=== PATIENT | female | born 1995 | race Caucasian/White ===

== ENCOUNTER 2017-04-14 18:59 | Emergency (ER) | payer OTHER ==
--- NOTE | 2017-04-14 19:13 | EDPHY ---
H & P Stated Complaint: r shoulder/throat and neck pain/steeple sign on throat films/ sent to r/o ep HPI/ROS: HPI CHIEF COMPLAINT: Sore throat HISTORY OF PRESENT ILLNESS: This patient is a very pleasant 22-year-old female denies having any significant medical history except for rotator cuff injury, she presents emergency room after she was seen by her orthopedist for ongoing shoulder pain and worsening rotator cuff pain she has had 2 days of sore throat progressively getting worse no fever. She does tell me that she has a change in voice it is more raspy. She denies productive cough or shortness of breath. Her main complaint is worsening sore throat. She had an x-ray done by her orthopedic doctor of her shoulder and neck the neck x-ray reported by the patient showed steeple sign she was referred here to the emergency room for evaluation to rule out epiglottitis. Upon arrival here in emergency room this patient appears well nontoxic her main complaint is sore throat. 2 days. She is not drooling. She is able to drink. She also states that she has been using heating pad to help with pain to her right shoulder she may have burned the mandibular edge of her right jaw from the heating pad. She does have some localized swelling there present. Denies dental pain. Past Medical History: Rotator cuff injury , anxiety, attention deficit hyperactivity disorder Past Surgical History: Denies surgical history Social History: Denies use of drugs alcohol tobacco products Family History: Noncontributory ROS REVIEW OF SYSTEMS: A comprehensive 10 point review of systems is otherwise negative aside from elements mentioned in the history of present illness. Exam Constitutional appears well nontoxic, triage nursing summary reviewed, vital signs reviewed, awake/alert. Eyes normal conjunctivae and sclera, EOMI, PERRLA. HENT posterior pharynx uvula midline, no significant swelling, no significant redness, no signs of Jv's, no space feeling underneath the tongue, no obvious dental infection, right jaw line slightly swollen, there appears to be maybe a second-degree partial-thickness burn where heating pad laid up against the jaw line, no blisters, no third-degree, normal inspection, atraumatic, moist mucus membranes, no epistaxis, neck supple/ no meningismus, no raccoon eyes. Respiratory clear to auscultation bilaterally, normal breath sounds, no respiratory distress, no wheezing. Cardiovascular rate normal, regular rhythm, no murmur, no edema, distal pulses normal. Gastrointestinal soft, non-tender, no rebound, no guarding, normal bowel sounds, no distension, no pulsatile mass. Genitourinary no CVA tenderness. Musculoskeletal no midline vertebral tenderness, full range of motion, no calf swelling, no tenderness of extremities, no meningismus, good pulses, neurovascularly intact. Skin pink, warm, & dry, no rash, skin atraumatic. Neurologic awake, alert and oriented x 3, AAOx3, moves all 4 extremities equally, motor intact, sensory intact, CN II-XII intact, normal cerebellar, normal vision, normal speech. Psychiatric normal mood/affect. Heme/Lymph/Immune no lymphadenopathy. Differential Diagnosis: Includes but is not limited to in a particular order strep pharyngitis, viral pharyngitis, mono, retropharyngeal abscess, doubt epiglottitis Medical Decision Making: Plan for this patient IV establishment, IV pain control, check basic blood work and CT soft tissue neck with IV contrast. Check strep test mono. Re-evaluation: 2056: Of note this patient was very difficult IV establishment. She has track pinedo down both arms extensively. Denies IV drug use. Multiple times roommate getting IV finally IV was established. Will proceed with CT soft tissue neck with IV contrast. Mostly clinically has a pharyngitis. ED x-ray chest one view: Negative for acute cardiopulmonary disease. Specifically no infiltrate. I do not appreciate steeple sign. CT scan of the soft tissue neck with IV contrast. The results of the study are Negative for Epiglottits or RPA The study was read by Dr. Koehler. I viewed the images myself on the PACS system. 2136: Patient be placed on amoxicillin, Decadron ibuprofen. CT scan does not show any acute significant neck infection. Slightly enlarged tonsillar bed. No abscess or epiglottitis. 1st dose given here in emergency room. She does understand return emergency room if she has any worsening symptoms questions or concerns includes worsening pain, high fever vomiting. Source: Patient - Personal History LMP (Females 10-55): 8-14 Days Ago Current Tetanus/Diphtheria Vaccine: Yes - Medical/Surgical History Hx Asthma: No Hx Chronic Respiratory Disease: No Hx Diabetes: No Hx Cardiac Disease: No Hx Renal Disease: No Hx Cirrhosis: No Hx Alcoholism: No Hx HIV/AIDS: No Hx Splenectomy or Spleen Trauma: No Other PMH: Medical- Concussion 12/14/13. Surgical- Tonsillectomy - Social History Smoking Status: Never smoked Constitutional: Initial Vital Signs Temperature (C) 36.6 C 04/14/17 19:03 Heart Rate 99 04/14/17 19:03 Respiratory Rate 22 H 04/14/17 19:03 Blood Pressure 116/73 04/14/17 19:03 O2 Sat (%) 97 04/14/17 19:03 O2 Delivery Mode Room Air Allergies/Adverse Reactions: No Known Allergies Allergy (Verified 04/14/17 19:00) Home Medications: Medication Instructions Recorded Adderall 11/24/16 Ambien 11/24/16 Xanax 11/24/16 Amoxicillin 500 mg PO TID 7 Days 04/14/17 Dexamethasone [Decadron 4 MG (*)] 4 mg PO DAILY #4 tab 04/14/17 Ibuprofen [Motrin (*)] 800 mg PO Q6-8PRN #10 tab 04/14/17 Medical Decision Making - Data Points Laboratory Results: Laboratory Results 04/14/17 20:50 04/14/17 20:14 04/14/17 04/14/17 04/14/17 Unknown 20:50 20:30 WBC REJ REJ RBC REJ Not Reported Hgb REJ Not Reported Hct REJ Not Reported MCV REJ Not Reported MCH REJ Not Reported MCHC REJ Not Reported RDW REJ Not Reported Plt Count REJ Not Reported MPV REJ Not Reported Neut % (Auto) REJ Not Reported Lymph % (Auto) REJ Not Reported [place] % (Auto) REJ Not Reported Eos % (Auto) REJ Not Reported Baso % (Auto) REJ Not Reported Nucleat RBC Rel Count REJ Not Reported Absolute Neuts (auto) REJ Not Reported Absolute Lymphs (auto) REJ Not Reported Absolute Monos (auto) REJ Not Reported Absolute Eos (auto) REJ Not Reported Absolute Basos (auto) REJ Not Reported Absolute Nucleated RBC REJ Not Reported Immature Gran % REJ Not Reported Immature Gran # REJ Not Reported Sodium Potassium Chloride Carbon Dioxide Anion Gap BUN Creatinine Estimated GFR Glucose Calcium Monoscreen Group A Strep Screen Group A Strep DNA Pending 04/14/17 04/14/17 04/14/17 20:14 20:14 19:20 WBC RBC Hgb Hct MCV MCH MCHC RDW Plt Count MPV Neut % (Auto) Lymph % (Auto) [place] % (Auto) Eos % (Auto) Baso % (Auto) Nucleat RBC Rel Count Absolute Neuts (auto) Absolute Lymphs (auto) Absolute Monos (auto) Absolute Eos (auto) Absolute Basos (auto) Absolute Nucleated RBC Immature Gran % Immature Gran # Sodium 133 mEq/L L mEq/L (134-144) Potassium 4.1 mEq/L mEq/L (3.5-5.2) Chloride 98 mEq/L mEq/L (97-110) Carbon Dioxide 27 mEq/l mEq/l (22-31) Anion Gap 8 mEq/L mEq/L (8-16) BUN 14 mg/dL mg/dL (7-23) Creatinine 0.7 mg/dL mg/dL (0.6-1.0) Estimated GFR > 60 Glucose 91 mg/dL mg/dL (70-100) Calcium 8.9 mg/dL mg/dL (8.5-10.4) Monoscreen NEGATIVE (NEGATIVE) Group A Strep Screen NEGATIVE (NEGATIVE) Group A Strep DNA Medications Given: Discontinued Medications Sodium Chloride (Ns) 1,000 mls @ 0 mls/hr IV ONCE ONE PRN Reason: Wide Open Stop: 04/14/17 19:23 Last Admin: 04/14/17 21:04 Dose: 1,000 mls Morphine Sulfate (Morphine) 2 mg IVP EDNOW ONE Stop: 04/14/17 19:28 Last Admin: 04/14/17 21:00 Dose: 2 mg Departure - Departure Disposition: Home, Routine, Self-Care Clinical Impression: Acute pharyngitis Qualifiers: Pharyngitis/tonsillitis etiology: unspecified etiology Qualified Code(s): J02.9 - Acute pharyngitis, unspecified Condition: Good Instructions: Pharyngitis (ED) Additional Instructions: 1. Return emergency room if you have further symptoms or worsening symptoms includes worsening throat pain, fever vomiting. Referrals: Miguel Chavez MD [Primary Care Provider] - As per Instructions Prescriptions: Amoxicillin 500 mg PO TID 7 Days Dexamethasone [Decadron 4 MG (*)] 4 mg PO DAILY #4 tab Ibuprofen [Motrin (*)] 800 mg PO Q6-8PRN #10 tab
[2017-04-14] MEDS ORDERED: NS 1,000 ML IV ONE (19:22)
[2017-04-14 20:41] LABS: ANION GAP 8 mEq/L (8-16); CALCIUM 8.9 mg/dL (8.5-10.4); CARBON DIOXIDE 27 mEq/l (22-31); CHLORIDE 98 mEq/L (97-110); CREATININE 0.7 mg/dL (0.6-1.0); GLOMERULAR FILTRATION RATE > 60; GLUCOSE 91 mg/dL (70-100); POTASSIUM 4.1 mEq/L (3.5-5.2); SODIUM 133 mEq/L (134-144)
[2017-04-14] MEDS ORDERED: IOPAMIDOL (ISOVUE-300) 100 ML BTL ONE (20:50)
[2017-04-14 21:57] VITALS: BP 112/82; PULSE 89; RESP 20; TEMP 98.1; O2SAT 94
== END 2017-04-14 21:57 | disposition home or self-care (01) ==
DX: J02.9 Acute pharyngitis, unspecified (principal)
CPT/HCPCS: 96374; Q9967

== ENCOUNTER 2017-06-05 17:26 | Observation (INO) | payer OTHER ==
[2017-06-05] MEDS ORDERED: fentaNYL 100 MCG/2 ML INJ IVP ONE (17:48)
[2017-06-05] MEDS ORDERED: ONDANSETRON 4 MG/2 ML VIAL IVP ONE (17:48)
--- NOTE | 2017-06-05 18:02 | EDPHY ---
H & P Smoking Status: Never smoked Time Seen by Provider: 06/05/17 17:37 HPI/ROS: CHIEF COMPLAINT: Abdominal pain HISTORY OF PRESENT ILLNESS: 22-year-old female presents to the emergency department with epigastric abdominal pain that began around 8:00 a.m. this morning. She states that initially it felt as if she was having some symptoms of GERD. She tried Pepto-Bismol without relief. No vomiting. No diarrhea. She has a history of a ventral hernia that she has had since . She has never had pain like this in the past. No reported trauma. No back pain. No fevers or chills. Last menstrual period was 1 month ago, she denies . REVIEW OF SYSTEMS: Constitutional: No fever, no chills. Eyes: No double or blurry vision. ENT: No sore throat. Respiratory: No cough, no shortness of breath. Cardiac: No chest pain. Gastrointestinal: Abdominal pain as above. No vomiting or diarrhea Genitourinary: No dysuria. Musculoskeletal: No neck or back pain. Skin: No rashes. Neurological: No headache. (Yvette Schuler) Past Medical/Surgical History: Tonsillectomy (Yvette Schuler) Social History: Single (Yvette Schuler) Physical Exam: General Appearance: Alert, no distress. Afebrile. Eyes: Pupils equal and round. Extraocular motions are all intact. ENT: Mouth: Mucous membranes moist. Respiratory: No wheezing, rhonchi, or rales, lungs are clear to auscultation. Cardiovascular: Regular rate and rhythm. Gastrointestinal: Abdomen is soft. Tenderness with palpation in the epigastric area as well as slightly in the right and left upper quadrant. There is no rebound, guarding or masses noted. No CVA tenderness bilaterally. Neurological: Alert and oriented x 3, cranial nerves II through XII grossly intact Skin: Warm and dry, no rashes. Musculoskeletal: Nontender to palpate along the cervical, thoracic or lumbar spine. Neck is supple. Extremities: Full range of motion and no peripheral edema. Psychiatric: Patient is oriented X 3, there is no agitation. (Yvette Schuler) Constitutional: Initial Vital Signs Temperature (C) 36.9 C 06/05/17 17:30 Heart Rate 78 06/05/17 17:30 Respiratory Rate 16 06/05/17 17:30 Blood Pressure 106/71 06/05/17 17:30 O2 Sat (%) 97 06/05/17 17:30 O2 Delivery Mode Room Air Allergies/Adverse Reactions: No Known Allergies Allergy (Verified 04/14/17 19:00) Home Medications: Medication Instructions Recorded Adderall 11/24/16 Ambien 11/24/16 Xanax 11/24/16 Amoxicillin 500 mg PO TID 7 Days 04/14/17 Dexamethasone [Decadron 4 MG (*)] 4 mg PO DAILY #4 tab 04/14/17 Ibuprofen [Motrin (*)] 800 mg PO Q6-8PRN #10 tab 04/14/17 Medical Decision Making - Diagnostics Imaging: Discussed imaging studies w/ bingo caller Radiologist - Diagnostics Imaging Results: Imaging Impressions Abdomen/Pelvis CT 06/05/17 19:41 Impression: 1. Epigastric 3 mm anterior abdominal wall hernia defect with approximately 2 cm of mesenteric fat extending through the hernia defect. No definite inflammatory changes. 2. Constipation. 3. No evidence of appendicitis. 4. No nephrolithiasis or urinary tract obstruction. Attention: This CT examination is specifically designed to evaluate patients who are clinically suspected of having acute obstructive uropathy. This examination does not use radiographic contrast, and as such, provides only a limited evaluation of the abdomen, pelvis, and retroperitoneum. If there is further clinical suspicion for pathological conditions other than obstructive uropathy, a complete CT evaluation of the abdomen and pelvis utilizing intravenous, oral, and rectal contrast should be considered. Findings and recommendations discussed with emergency department physician assistant store director, Yvette Schuler PA-C at 2024 hours on June 05, 2017. Final report concurs with initial preliminary interpretation. ED Course/Re-evaluation: 22-year-old female presents to the emergency department with epigastric abdominal pain. The patient does have a palpable hernia. I was concerned about possible incarcerated hernia given her level of pain. Laboratory studies were unremarkable. The case was discussed with Dr. Vadim Cortez, secondary supervising physician, who also evaluated the patient. He agrees with CT imaging of the abdomen and pelvis with IV contrast. CT imaging reveals a small ventral hernia superior to the umbilicus with a small amount of herniated fat. IV was established the patient was initially given IV fentanyl and 0.5 mg of IV Dilaudid for pain. Dr. Shahrzad Deleon came down to evaluate the patient and will take this patient to the operating room. A bed has been ordered to Dr. Shahrzad Deleon. She also recommended giving the patient 2 g of IV Ancef. (Yvette Schuler) Differential Diagnosis: Including but not limited to incarcerated hernia, bowel obstruction (Yvette Schuler) Other Provider: PHYSICIAN DOCUMENTATION: The patient was evaluated and managed by the Physician Laboratory Mechanic Helper and myself. I have reviewed the chart and agree with the findings and plan of care as documented. In addition, I examined the patient myself. History confirmed as was told she had a hernia by her mother, no previous surgeries. Physical findings as follows: Patient has swelling and tenderness which is firm, in the subcutaneous area below her epigastrium and above her umbilicus. Plan for CT scanning to evaluate for possible incarcerated hernia. Negative test, normal creatinine. 2049: CT reviewed, [place] to see in ED. I am the secondary supervising physician. (Vadim Cortez) - Data Points Laboratory Results: Laboratory Results 06/05/17 19:25 06/05/17 06/05/17 06/05/17 19:25 19:25 19:22 WBC 10.69 10^3/uL H 10^3/uL (3.80-9.50) RBC 3.89 10^6/uL L 10^6/uL (4.18-5.33) Hgb 11.5 g/dL L g/dL (12.6-16.3) POC Hgb 13.3 gm/dL gm/dL (12.6-16.3) Hct 35.7 % L % (38.0-47.0) POC Hct 39 % % (38-47) MCV 91.8 fL fL (81.5-99.8) MCH 29.6 pg pg (27.9-34.1) MCHC 32.2 g/dL L g/dL (32.4-36.7) RDW 13.3 % % (11.5-15.2) Plt Count 261 10^3/uL 10^3/uL (150-400) MPV 10.1 fL fL (8.7-11.7) Neut % (Auto) 72.5 % % (39.3-74.2) Lymph % (Auto) 18.2 % % (15.0-45.0) [place] % (Auto) 6.1 % % (4.5-13.0) Eos % (Auto) 2.4 % % (0.6-7.6) Baso % (Auto) 0.4 % % (0.3-1.7) Nucleat RBC Rel Count 0.0 % % (0.0-0.2) Absolute Neuts (auto) 7.75 10^3/uL H 10^3/uL (1.70-6.50) Absolute Lymphs (auto) 1.95 10^3/uL 10^3/uL (1.00-3.00) Absolute Monos (auto) 0.65 10^3/uL 10^3/uL (0.30-0.80) Absolute Eos (auto) 0.26 10^3/uL 10^3/uL (0.03-0.40) Absolute Basos (auto) 0.04 10^3/uL 10^3/uL (0.02-0.10) Absolute Nucleated RBC 0.00 10^3/uL 10^3/uL (0-0.01) Immature Gran % 0.4 % % (0.0-1.1) Immature Gran # 0.04 10^3/uL 10^3/uL (0.00-0.10) POC Sodium 140 mEq/L mEq/L (134-144) POC Potassium 4.0 mEq/L mEq/L (3.3-5.0) POC Chloride 100 mEq/L mEq/L (97-110) POC BUN 4 mg/dL L mg/dL (7-23) POC Creatinine 0.6 mg/dL mg/dL (0.6-1.0) POC Glucose 87 mg/dL mg/dL (70-100) Beta HCG, Qual NEGATIVE Medications Given: Discontinued Medications Fentanyl (Sublimaze) 50 mcg IVP EDNOW ONE Stop: 06/05/17 17:49 Last Admin: 06/05/17 18:54 Dose: 50 mcg Hydromorphone HCl (Dilaudid) 0.5 mg IVP EDNOW ONE Stop: 06/05/17 19:55 Last Admin: 06/05/17 20:01 Dose: 0.5 mg Hydromorphone HCl (Dilaudid) 0.5 mg IVP EDNOW ONE Stop: 06/05/17 21:01 Last Admin: 06/05/17 21:10 Dose: 0.5 mg Hydromorphone HCl (Dilaudid) 0.5 mg IVP EDNOW ONE Stop: 06/05/17 21:57 Last Admin: 06/05/17 22:02 Dose: 0.5 mg Sodium Chloride (Ns) 1,000 mls @ 0 mls/hr IV ONCE ONE PRN Reason: Wide Open Stop: 06/05/17 18:43 Last Admin: 06/05/17 18:53 Dose: 1,000 mls Ondansetron HCl (Zofran) 4 mg IVP EDNOW ONE Stop: 06/05/17 17:49 Last Admin: 06/05/17 18:53 Dose: 4 mg Point of Care Test Results: 06/05/17 19:22 POC Sodium 140 POC Potassium 4.0 POC Chloride 100 POC BUN 4 L POC Creatinine 0.6 POC Glucose 87 Departure - Departure Disposition: To OP Cath/Surgery Clinical Impression: Ventral hernia with incarcerated fat Condition: Good Referrals: Miguel Chavez MD [Primary Care Provider] - As per Instructions
[2017-06-05] MEDS ORDERED: NS 1,000 ML IV ONE (18:42)
[2017-06-05 19:40] LABS: % IMMATURE GRANULYOCYTES 0.4 % (0.0-1.1); ABSOLUTE IMMATURE GRANULOCYTES 0.04 10^3/uL (0.00-0.10); ADD DIFF? NO; ADD MORPH? NO; ADD SCAN? NO; ATYPICAL LYMPHOCYTE FLAG 20 (0-99); FRAGMENT RBC FLAG 0 (0-99); HEMATOCRIT 35.7 % (38.0-47.0); HEMOGLOBIN 11.5 g/dL (12.6-16.3); LEFT SHIFT FLG 10 (0-99); LIPEMIA HEMOLYSIS FLAG 80 (0-99); MEAN CELL HEMOGLOBIN 29.6 pg (27.9-34.1); MEAN CELL HEMOGLOBIN CONCENTR. 32.2 g/dL (32.4-36.7); MEAN CELL VOLUME 91.8 fL (81.5-99.8); MEAN PLATELET VOLUME 10.1 fL (8.7-11.7); PLATELET CLUMPS FLAG 0 (0-99); PLATELET COUNT 261 10^3/uL (150-400); RED BLOOD CELL COUNT 3.89 10^6/uL (4.18-5.33); RED CELL DISTRIBUTION WIDTH 13.3 % (11.5-15.2)
[2017-06-05] MEDS ORDERED: IOPAMIDOL (ISOVUE-300) 100 ML BTL ONE (19:48)
[2017-06-05] MEDS ORDERED: HYDROmorphONE/DILAUDID 1 MG/ML SYR IVP ONE ×3 (19:54→21:56)
[2017-06-05] MEDS ORDERED: ceFAZolin 2 GM/DEXTROSE 100 ML IV ONE (22:20)
[2017-06-05 22:45] LABS: ALBUMIN 3.5 g/dL (3.5-5.0); BILIRUBIN,TOTAL 0.6 mg/dL (0.1-1.4); BILIRUBIN-CONJUGATED 0.5 mg/dL (0.0-0.5); BILIRUBIN-UNCONJUGATED 0.1 mg/dL (0.0-1.1); TOTAL PROTEIN 6.7 g/dL (6.3-8.2)
[2017-06-05] MEDS ORDERED: MIDAZOLAM 2 MG/2 ML VIAL IVP ONE (22:54)
--- NOTE | 2017-06-05 22:57 | GHP ---
[f rep st] HISTORY AND PHYSICAL DATE OF ADMISSION: 06/05/2017 CHIEF COMPLAINT: Incarcerated ventral hernia. HISTORY OF PRESENT ILLNESS: The patient is a 22-year-old woman who has had a ventral hernia since she was a child. However, it has become increasingly painful over the past day. She is having difficulty eating due to the pain. She presented to the emergency room due to the pain. The pain is in the midepigastric area. It radiates both to the left and the right. Although pain medicine has helped somewhat, it has not relieved it. PAST MEDICAL HISTORY: None. PAST SURGICAL HISTORY: Tonsillectomy. SOCIAL HISTORY: She is a student at . She graduated in [place] and is finishing up a summer class. She does not use tobacco. She denies drugs FAMILY HISTORY: Her grandmother has diabetes. REVIEW OF SYSTEMS: She is passing flatus and bowel movements. 10-point review of systems negative. PHYSICAL EXAMINATION: VITAL SIGNS: 36.9, 78, 106/71, 16, 97%. GENERAL: Pleasant, well-nourished, well-groomed woman, tearful, sitting in bed. HEENT: Normocephalic. No gross hearing deficits. Mucous membranes moist. Pupils equal and round. No scleral icterus. LUNGS: Clear to auscultation bilaterally. No increased work of breathing. CARDIAC: Regular rate. ABDOMEN : Bowel sounds present. Soft. She is very tender directly over the mass in her midline. MSK: Normal nails SKIN: Warm and dry. right wrist is swollen PSYCHIATRIC: Tearful. NEUROLOGIC: Grossly intact. DIAGNOSTIC DATA: Results reviewed. Her white blood cell count is 10.69. CT scan shows an epigastric hernia with mesenteric fat extending through the hernia defect. No evidence of appendicitis or other defects. IMPRESSION AND PLAN: The patient is a 22-year-old with an incarcerated ventral hernia. Due to her pain, I will take her to the operating room for ventral hernia repair with possible mesh. The risks and benefits, including, but not limited to, stroke, heart attack, , blood clots, infection, and bleeding were all discussed. I have added on LFTs to her labs. She will receive Ancef 2 g eyewear consultant to the OR. Her HCG is negative. In the operating room, she had areas of thickened veins, some warmth and concerns of needle track pinedo on both arms. Ultrasound ordered to rule out abscess /[id number]/MODL MTDD
--- NOTE | 2017-06-05 22:59 | PDANEPAE ---
ANE History of Present Illness incarcerate ventral hernia ANE Past Medical History - Pulmonary History Hx Oxygen in Use at Home: No - Endocrine History Hx Diabetes: No ANE Review of Systems - Exercise capacity METS (RN): 4 METS ANE Patient History - Allergies Allergies/Adverse Reactions: No Known Allergies Allergy (Verified 04/14/17 19:00) - Home Medications Home Medications: Adderall 11/24/16 [Last Taken Unknown] Ambien 11/24/16 [Last Taken Unknown] Xanax 11/24/16 [Last Taken Unknown] - NPO status NPO Status: no food or drink >8 hours (no food >8 hours, did have h2O at 1600) NPO Since - Liquids (Date): 06/05/17 NPO Since - Liquids (Time): 16:00 NPO Since - Solids (Date): 06/05/17 NPO Since - Solids (Time): 12:00 - Anes Hx Anes Hx: no prior problems - Smoking Hx Smoking Status: Never smoked - Alcohol Use Alcohol Use: Occasionally - Family Anes Hx Family Anes Hx: none ANE Labs/Vital Signs - Labs Result Diagrams: 06/05/17 19:25 - Vital Signs Blood Pressure: 110/64 Heart Rate: 75 Respiratory Rate: 16 O2 Sat (%): 94 Height: 162.56 cm Weight: 52.163 kg ANE Physical Exam - Airway Mallampati Score: Class 1 Mouth exam: normal dental/mouth exam - Pulmonary Pulmonary: no respiratory distress - Cardiovascular Cardiovascular: regular rate and rhythym - ASA Status ASA Status: I, E ANE Anesthesia Plan Anesthesia Plan: general endotracheal anesthesia, GA w LMA (ett vs lma)
[2017-06-05] MEDS ORDERED: MIDAZOLAM 2 MG/2 ML VIAL ONE (23:29)
[2017-06-05] MEDS ORDERED: PROPOFOL/EMULSION 500 MG/50 ML BOTTLE IV ONE (23:47)
[2017-06-05] MEDS ORDERED: fentaNYL 100 MCG/2 ML INJ ONE (23:47)
[2017-06-05] MEDS ORDERED: LIDOCAINE 2% JELLY 5 ML TUBE ONE (23:47)
[2017-06-05] MEDS ORDERED: LIDOCAINE 2% 5 ML SDV ONE (23:47)
[2017-06-05] MEDS ORDERED: DEXAMETHASONE 4 MG/ML VIAL ONE (23:47)
[2017-06-05] MEDS ORDERED: BUPIVACAINE 0.5% 30 ML SDV ONE (23:48)
--- NOTE | 2017-06-06 00:24 | POSTOPPROG ---
Post Op Note Date of Operation: 06/06/17 Surgeon: Shahrzad Deleon Anesthesiologist: nancy Anesthesia: GET(General Endotracheal) Pre-op Diagnosis: incarcerated ventral hernia Post-op Diagnosis: same Indication: 22 year old with tender incarcerated hernia Procedure: open ventral hernia Findings: incarcerated omentum Inf/Abcess present in the surg proc area at time of surgery?: No Depth: Superfical (Skin SQ) EBL: Minimal Specimen(s): none
[2017-06-06] MEDS ORDERED: ONDANSETRON 4 MG/2 ML VIAL IVP PRN ×2 (00:25→00:28)
[2017-06-06] MEDS ORDERED: ACETAMINOPHEN 325 MG TAB PO PRN (00:25)
[2017-06-06] MEDS ORDERED: IBUPROFEN 600 MG TAB PO PRN (00:25)
[2017-06-06] MEDS ORDERED: METOCLOPRAMIDE 10 MG/2 ML VIAL IVP PRN (00:28)
[2017-06-06] MEDS ORDERED: LABETALOL HCL 50 MG/10 ML SYR IVP PRN (00:28)
[2017-06-06] MEDS ORDERED: fentaNYL 100 MCG/2 ML INJ IVP PRN ×2 (00:28)
[2017-06-06] MEDS ORDERED: LR 500 ML IV PRN (00:28)
[2017-06-06] MEDS ORDERED: ALBUTEROL 3 ML DEYVIAL IH PRN (00:28)
[2017-06-06] MEDS ORDERED: OXYCODONE/APAP 5/325 TAB PO PRN (00:28)
[2017-06-06] MEDS ORDERED: MEPERIDINE 25 MG/ML SYR IVP PRN (00:28)
[2017-06-06] MEDS ORDERED: ACETAMINOPHEN 500 MG TAB PO PRN (00:28)
[2017-06-06] MEDS ORDERED: NALOXONE HCL 0.4 MG/ML INJ IVP PRN (00:28)
[2017-06-06] MEDS ORDERED: PROMETHAZINE HCL 25 MG/ML INJ IVP PRN (00:28)
[2017-06-06] MEDS ORDERED: DEXAMETHASONE 4 MG/ML VIAL IVP PRN (00:28)
[2017-06-06] MEDS ORDERED: HYDROCODONE/APAP 5/325 TAB PO PRN (00:28)
--- NOTE | 2017-06-06 00:30 | POSTANESTH ---
Post Anesthetic Evaluation Cardiovascular Status: Normal, Stable Respiratory Status: Normal, Stable Pain Control: Adequate, Prn Tx Ordered Nausea/Vomiting Control: Adequate, Prn Tx Ordered Complications Possibly Related to Anesthesia: None Noted
[2017-06-06] MEDS ORDERED: fentaNYL 100 MCG/2 ML INJ ONE (01:09)
[2017-06-06] MEDS ORDERED: HYDROCODONE/APAP 5/325 TAB ONE (01:23)
[2017-06-06] MEDS: HYDROCODONE/APAP 5/325 TAB PO PRN ×2 (01:23→04:50)
[2017-06-06 03:23] VITALS: O2SAT 94
[2017-06-06 03:28] VITALS: RESP 16
[2017-06-06 09:01] VITALS: BP 108/60; PULSE 72; TEMP 98.1
--- NOTE | 2017-06-06 09:33 | SOAPPROG ---
SOAP Progress Note Assessment/Plan: Assessment: 22yo F POD#1 s/p ventral hernia repair. Also with LUE swelling. US has not been read yet- I recommended that she stay until her ultrasound has been read. She does not want to stay. I will call her if her US reveals anything. She will f/u with her PCP regarding UE swelling Having pain but relatively controlled c PO Tolerating regular diet No nausea, vomiting, distension Dispo: D/C home today. F/u 2 weeks. Avoid heavy lifting, pushing or pulling x 6 weeks. Regular diet. May shower. F/u with PCP re swelling S: having pain at incision. No nausea. Ate breakfast without worsening symptoms. Says that swelling is not new issue for her - that she has seen her PCP re this. O: sitting up in bed, anxious but calms easily with reassurance. No increased WOB BUE swelling Abd soft, nondistended. Tender around incision. Incision CDI Objective: Vital Signs Temp Pulse Resp BP Pulse Ox 36.7 C 72 16 108/60 94 06/06/17 08:59 06/06/17 08:59 06/06/17 08:59 06/06/17 08:59 06/06/17 08:59 06/05/17 06/06/17 06/07/17 05:59 05:59 05:59 Intake Total 3450 Output Total 2410 Balance 1545 ICD10 Worksheet Patient Problems: Problems Problem Status Onset Ventral hernia Acute - ICD10 Problem Qualifiers (1) Ventral hernia Qualifiers: Obstruction and gangrene presence: O
--- NOTE | 2017-06-06 11:12 | GDS ---
[f rep st] DISCHARGE SUMMARY ADMITTING DIAGNOSIS: Incarcerated ventral hernia. SECONDARY DIAGNOSIS: Left upper extremity swelling. REASON FOR ADMISSION: The patient is a 22-year-old woman with a painful incarcerated ventral hernia . She presented for surgical repair, observation, and pain control. HOSPITAL COURSE: She was taken to the operating room on 06/05/[address] Shahrzad Deleon for open vent ral hernia repair. The hernia did not require mesh. Postoperatively, she was found to have left up per extremity swelling. An ultrasound was obtained at the time of discharge. The report has not be en released; however, the patient is quite anxious about being discharged home. She is tolerating r egular diet, ambulating independently, and pain is controlled with oral pain medication. DISCHARGE CONDITION: Stable. DISCHARGE MEDICATIONS: She was sent home with a prescription for [place] 5/325, quantity 10. She was instructed to resume her home medications. See EMR for further detail. DISCHARGE INSTRUCTIONS AND FOLLOWUP: Will follow up with Dr. Shahrzad Deleon in 2 weeks for postop eval uation. She may shower. No restrictions on diet. She will avoid heavy lifting, pushing, or bartolo g greater than 15 pounds for 6 weeks. She will follow up with her primary care provider for followu p on the upper extremity swelling. I will call her with the results of her ultrasound if there are any abnormal results or requires treatment. She understands to call our office with any worsening s ymptoms, questions, or concerns. /[id number]/MODL
--- NOTE | 2017-06-06 15:54 | GOP ---
[f rep st] OPERATIVE REPORT DATE OF OPERATION: 06/05/2017 SURGEON: Shahrzad Deleon MD ANESTHESIA: General. ANESTHESIOLOGIST: Dr. Bernard Guerrero. PREOPERATIVE DIAGNOSIS: Incarcerated ventral hernia. POSTOPERATIVE DIAGNOSIS: Incarcerated ventral hernia. PROCEDURE PERFORMED: Open ventral hernia repair. FINDINGS: Incarcerated omentum. SPECIMENS: None. ESTIMATED BLOOD LOSS: 5 cc. INDICATIONS: The patient is a 22-year-old, who has had a long-standing small ventral hernia. Howeve r, she has become increasingly painful over the past day. CT was obtained, which showed incarcerated fat in her ventral hernia. DESCRIPTION OF PROCEDURE: The patient was brought into the operating room, placed supine on the tab le. General anesthesia was administered. Her abdomen was prepped and draped in the usual sterile fas hion. I infiltrated the area with 0.5% Marcaine prior to making incisions. I made a small incision o darian the incarcerated area. I dissected down through the subcutaneous tissues, and then used Metzenba um scissors to circumferentially dissect the omentum away from the hernia sac. Once this was free, I was not able to reduce it into the abdominal cavity, and so I carefully ligated it. The fascial def ect was approximately 3 mm. I was able to elevate this and suture it closed with a [id number] 0 PDS. I closed the wound with 3-0 Vicryl, followed by 4-0 Monocryl. Dermabond applied. She was awakened in the operating room, extubated, and as I woke her, I noted that she had several a reas on her arms that appeared to be thrombophlebitis and concerned for drug use or abscess, and so I ordered an ultrasound. She was brought to PACU in stable condition. /[id number]/MODL
== END 2017-06-06 11:21 | disposition home or self-care (01) ==
LOC: F1N 06-06 01:45
PROVIDERS: ADMIT Surgery; ATTEND Surgery
PROC: 0WQF0ZZ Repair Abdominal Wall, Open Approach (ICD-10-PCS; principal; 2017-06-05 23:15)
DX: K43.6 Other and unspecified ventral hernia with obstruction, without gangrene (principal); M79.89 Other specified soft tissue disorders
CPT/HCPCS: 49561; 74176; 76882; G0378; 82947-QW; 96374; J0690; J1100; J1170; J2250; J2405; J2704; J3010; Q9967

== ENCOUNTER 2018-02-22 04:12 | Emergency (ER) | payer OTHER ==
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
[2018-02-22] MEDS ORDERED: NS 1,000 ML IV ONE (04:25)
[2018-02-22] MEDS ORDERED: KETOROLAC 15 MG/1 ML SDV IVP ONE (04:26)
[2018-02-22 05:12] LABS: PLATELET COUNT 221 10^3/uL (150-400)
[2018-02-22] MEDS ORDERED: IOPAMIDOL (ISOVUE-300) 100 ML BTL ONE (05:12)
[2018-02-22 05:21] LABS: INR 1.11 (0.83-1.16); PROTIME(PATIENT) 14.5 SEC (12.0-15.0)
[2018-02-22] MEDS ORDERED: ACETAMINOPHEN 500 MG TAB PO ONE (06:17)
[2018-02-22] MEDS ORDERED: IBUPROFEN 800 MG TAB PO ONE (06:17)
[2018-02-22 06:20] VITALS: BP 119/74
== END 2018-02-22 06:36 | disposition home or self-care (01) ==
DX: S22.20XA Unspecified fracture of sternum, initial encounter for closed fracture (principal); J45.909 Unspecified asthma, uncomplicated; E86.9 Volume depletion, unspecified; V89.2XXA Person injured in unspecified motor-vehicle accident, traffic, initial encounter; Y92.410 Unspecified street and highway as the place of occurrence of the external cause
CPT/HCPCS: 80305; 82947-QW; 96374; J1885; Q9967

== ENCOUNTER 2018-03-05 01:48 | Emergency (ER) | payer OTHER ==
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
[2018-03-05 06:10] VITALS: BP 128/81
[2018-03-07] MEDS ORDERED: BUPIVACAINE 0.5% 30 ML SDV ONE (07:19)
== END 2018-03-05 06:21 | disposition home or self-care (01) ==
LOC: EDUNIT#
PROC: 0H9EXZZ Drainage of Left Lower Arm Skin, External Approach (ICD-10-PCS; principal; 2018-03-05)
DX: F11.10 Opioid abuse, uncomplicated (principal); L02.414 Cutaneous abscess of left upper limb; J45.909 Unspecified asthma, uncomplicated

== ENCOUNTER 2018-03-05 19:26 | Inpatient (IN) | payer OTHER ==
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
[2018-03-05 20:16] LABS: PLATELET COUNT 453 10^3/uL (150-400)
[2018-03-05 21:05] LABS: INR 1.2 (0.83-1.16); PROTIME(PATIENT) 15.4 SEC (12.0-15.0)
[2018-03-05] MEDS ORDERED: VANCOMYCIN HCL/NORMAL SALINE 250 ML IV ONE (21:07)
[2018-03-05] MEDS ORDERED: AMPICILLIN/SULBACTAM 3 GM VIAL IV ONE (21:13)
[2018-03-05] MEDS ORDERED: MIDAZOLAM 2 MG/2 ML VIAL IVP ONE (21:26)
--- NOTE | 2018-03-05 21:26 | PDANEPAE ---
ANE History of Present Illness arm, chest I&D ANE Past Medical History - Cardiovascular History Hx Hypertension: No - Pulmonary History Hx Asthma/Reactive Airway Disease: Yes Hx Oxygen in Use at Home: No Hx Sleep Apnea: No - Endocrine History Hx Diabetes: No - Chronic Pain History Chronic Pain: Yes ANE Review of Systems Review of systems is: negative Review of Systems: - Exercise capacity Exercise capacity: unable to assess ANE Patient History - Allergies Allergies/Adverse Reactions: No Known Allergies Allergy (Verified 04/14/17 19:00) - Home Medications Home medications: home medication list seen and reviewed (IV drug abuse) Home Medications: ALPRAZolam [Xanax 1 MG (*)] 1 mg PO BID PRN 06/06/17 [Last Taken 03/05/18] Zolpidem Tartrate [Ambien 10 mg] 10 mg PO HS 06/06/17 [Last Taken 03/04/18] Ferrous Sulfate [Ferrous Sulf 325 MG (*)] 325 mg PO DAILY 03/05/18 [Last Taken 02/26/18] Ibuprofen [Motrin (*)] 400 mg PO Q6HRS PRN 03/05/18 [Last Taken 03/04/18] Ibuprofen/Diphenhydramine Cit [Advil Pm Caplet] 1 each PO HS PRN 03/05/18 [Last Taken Unknown] Lidocaine [Lidoderm] 1 each TP DAILY 03/05/18 [Last Taken 03/04/18] Multivitamins [Multivitamin (*)] 1 each PO DAILY 03/05/18 [Last Taken 02/26/18] oxyCODONE IR [Oxycodone Ir (*)] 10 mg PO Q4HRS PRN 03/05/18 [Last Taken 03/05/18 ] - Smoking Hx Smoking Status: Never smoked ANE Labs/Vital Signs - Labs Result Diagrams: 03/05/18 19:50 03/05/18 19:50 - Vital Signs Blood Pressure: 113/72 Heart Rate: 108 Respiratory Rate: 18 O2 Sat (%): 94 Height: 170.18 cm Weight: 58.967 kg ANE Physical Exam - Airway Neck exam: FROM Mallampati Score: Class 2 Mouth exam: poor dentition - Pulmonary Pulmonary: no respiratory distress - Cardiovascular Cardiovascular: tachycardia - ASA Status ASA Status: III, E ANE Anesthesia Plan Anesthesia Plan: general endotracheal anesthesia
[2018-03-05] MEDS ORDERED: LIDOCAINE 2% 100 MG/5 ML SYR ONE (21:38)
[2018-03-05] MEDS ORDERED: fentaNYL 100 MCG/2 ML INJ ONE ×2 (21:38→22:42)
[2018-03-05] MEDS ORDERED: DEXAMETHASONE 4 MG/ML VIAL ONE (21:38)
[2018-03-05] MEDS ORDERED: ONDANSETRON 4 MG/2 ML VIAL ONE (21:38)
[2018-03-05] MEDS ORDERED: PROPOFOL 200 MG/20 ML VIAL ONE (21:38)
[2018-03-05] MEDS ORDERED: ROCURONIUM 50 MG/5 ML VIAL ONE ×2 (21:39)
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
[2018-03-05] MEDS ORDERED: ONDANSETRON 4 MG/2 ML VIAL IVP PRN ×2 (22:08→22:21)
[2018-03-05] MEDS ORDERED: HYDROmorphone HCL/NS 0.5 MG/ML SYR IVP PRN (22:08)
[2018-03-05] MEDS ORDERED: ACETAMINOPHEN 325 MG TAB PO PRN (22:08)
[2018-03-05] MEDS ORDERED: HYDROmorphONE/DILAUDID 2 MG TAB PO PRN (22:08)
[2018-03-05] MEDS ORDERED: ONDANSETRON DISINTEGRATING 4 MG TAB PO PRN (22:08)
[2018-03-05] MEDS ORDERED: HYDROCODONE/APAP 5/325 TAB PO PRN (22:21)
[2018-03-05] MEDS ORDERED: DEXAMETHASONE 4 MG/ML VIAL IVP PRN (22:21)
[2018-03-05] MEDS ORDERED: ACETAMINOPHEN 500 MG TAB PO PRN (22:21)
[2018-03-05] MEDS ORDERED: LABETALOL HCL 5 MG/ML 20 ML MDV IVP PRN (22:21)
[2018-03-05] MEDS ORDERED: HYDROmorphONE/DILAUDID 2 MG/ML INJ IVP PRN (22:21)
[2018-03-05] MEDS ORDERED: oxyCODONE IR 5 MG TAB PO PRN (22:21)
[2018-03-05] MEDS ORDERED: ALBUTEROL 3 ML DEYVIAL IH PRN (22:21)
[2018-03-05] MEDS ORDERED: PROMETHAZINE HCL 25 MG/ML INJ IVP PRN (22:21)
[2018-03-05] MEDS ORDERED: NALOXONE HCL 0.4 MG/ML INJ IVP PRN (22:21)
[2018-03-05] MEDS ORDERED: fentaNYL 100 MCG/2 ML INJ IVP PRN (22:21)
[2018-03-05] MEDS ORDERED: MEPERIDINE 25 MG/ML SYR IVP PRN (22:21)
--- NOTE | 2018-03-05 22:24 | POSTANESTH ---
Post Anesthetic Evaluation Cardiovascular Status: Similar to Pre-Op Cond Respiratory Status: Similar to Pre-op Cond. Level of Consciousness/Mental Status: Can Participate in Eval, Moderately Sleepy Pain Control: Inadeq, Add Tx Required Nausea/Vomiting Control: Adequate, Prn Tx Ordered Complications Possibly Related to Anesthesia: None Noted
[2018-03-05] MEDS ORDERED: DEXMEDETOMIDINE IN 0.9 % NACL 100 ML IV SCH (23:30)
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
[2018-03-06] MEDS ORDERED: HYDROmorphone HCL/NS 0.5 MG/ML SYR IVP PRN (00:14)
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
[2018-03-06] MEDS: LORazepam 1 MG TAB PO PRN ×3 (00:58→17:49)
[2018-03-06] MEDS: oxyCODONE IR 5 MG TAB PO PRN (00:58)
[2018-03-06] MEDS ORDERED: ZOLPIDEM TARTRATE 5 MG TAB PO ONE (01:36)
[2018-03-06] MEDS: AMPICILLIN/SULBACTAM 3 GM VIAL IV SCH ×2 (03:26→09:59)
[2018-03-06 05:09] LABS: PLATELET COUNT 391 10^3/uL (150-400)
[2018-03-06] MEDS: VANCOMYCIN 1 GM in NS 250 ML IV SCH ×3 (06:21→21:45)
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
[2018-03-06] MEDS ORDERED: VANCOMYCIN 1.25 GM in NS 250 ML IV SCH (09:00)
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
[2018-03-06] MEDS ORDERED: ALPRAZolam 1 MG TAB PO PRN (09:49)
[2018-03-06] MEDS: HYDROmorphONE/DILAUDID 2 MG TAB PO PRN ×3 (10:09→20:37)
[2018-03-06] MEDS: ALPRAZolam 0.5 MG TAB PO PRN ×2 (10:09→20:38)
--- NOTE | 2018-03-06 11:40 | PDMN ---
Medical Necessity Medical necessity: M600 osteomyelitis 3 days: chest wall fluid collection likely sternal OM- surgical I/D, debridement , sternal biopsy, wash out mediastinum, wound vac placed, INPT order placed 03/05/18 23:45
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
--- NOTE | 2018-03-06 12:06 | SOAPPROG ---
SOAP Progress Note Assessment/Plan: Assessment/Plan: 22yo F POD#1 s/p debridement of large anterior chest abscess extending into anterior mediastinum with sternal osteomyelitis IV vancomycin - appreciate ID consult Plan return to OR in am for excisional debridement of sternum and anterior mediastinum with wound vac change OR at 7:15 NPO after midnight Consent signed in chart Appreciate hospitalists S: Continues to have pain. Initially was confused stating that she did not have surgery yesterday - became more oriented after recounting yesterday's events with her. She becomes tearful at times without provocation. She expressed understanding of the severity of the situation and need to return to the operating room O: laying in bed, anxious and tearful at times, flinches when I attempt to examine her RRR CTAB Anterior chest wound vac in place to suction - no leak. Min drainage in canister No surrounding erythema Objective: Vital Signs Temp Pulse Resp BP Pulse Ox 36.5 C 102 H 24 H 110/54 L 91 L 03/06/18 08:00 03/06/18 11:00 03/06/18 11:00 03/06/18 11:00 03/06/18 11:00 Microbiology 03/05/18 22:30 Gram Stain - Final Chest - Tissue 03/05/18 22:30 Gram Stain - Final Chest - Aspirate Laboratory Results 03/06/18 04:35 03/06/18 04:35 03/05/18 03/06/18 03/07/18 05:59 05:59 05:59 Intake Total 1667 Output Total 1275 Balance 392 PT 15.4 SEC (12.0-15.0) H 03/05/18 18:50 INR 1.20 (0.83-1.16) H 03/05/18 18:50 ICD10 Worksheet Patient Problems: Problems Problem Status Onset Abscess Acute Anemia Acute Narcotic abuse Acute Ventral hernia Acute
[2018-03-06 15:19] LABS: HEPATITIS B SURFACE ANTIGEN NEGATIVE (NEGATIVE)
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
[2018-03-06 15:36] LABS: HEPATITIS B CORE AB TOTAL NEGATIVE (NEGATIVE)
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
[2018-03-06] MEDS: ZOLPIDEM TARTRATE 5 MG TAB PO SCH (20:38)
[2018-03-06] MEDS ORDERED: PATCH REMOVAL 1 EA PATCH TD SCH (21:00)
[2018-03-06] MEDS ORDERED: NON-FORMULARY NEW DRUG (Zolpidem Tartrate [Ambien 10 Mg] 10 MG) PO SCH (21:00)
[2018-03-07] MEDS: LORazepam 1 MG TAB PO PRN ×3 (01:54→21:49)
[2018-03-07] MEDS: HYDROmorphONE/DILAUDID 2 MG TAB PO PRN ×5 (02:39→22:39)
[2018-03-07] MEDS: VANCOMYCIN 1 GM in NS 250 ML IV SCH ×3 (04:18→21:48)
[2018-03-07 04:25] LABS: PLATELET COUNT 461 10^3/uL (150-400)
[2018-03-07 06:54] LABS: HEPATITIS C ANTIBODY TOTAL NEGATIVE (NEGATIVE); HIV TYPE 1 AND 2 NEGATIVE (NEGATIVE)
--- NOTE | 2018-03-07 06:59 | PDANEPAE ---
ANE History of Present Illness pt with infected sternum here for I+D ANE Past Medical History - Cardiovascular History Hx Hypertension: No - Pulmonary History Hx Asthma/Reactive Airway Disease: Yes Hx Oxygen in Use at Home: No Hx Sleep Apnea: No Sleep Apnea Screening Result - Last Documented: Negative - Endocrine History Hx Diabetes: No - Chronic Pain History Chronic Pain: Yes ANE Review of Systems Review of Systems: - Exercise capacity Exercise capacity: >=4 METS ANE Patient History - Allergies Allergies/Adverse Reactions: No Known Allergies Allergy (Verified 04/14/17 19:00) - Home Medications Home Medications: ALPRAZolam [Xanax 1 MG (*)] 1 mg PO BID PRN 06/06/17 [Last Taken 03/05/18] Zolpidem Tartrate [Ambien 10 mg] 10 mg PO HS 06/06/17 [Last Taken 03/04/18] Ferrous Sulfate [Ferrous Sulf 325 MG (*)] 325 mg PO DAILY 03/05/18 [Last Taken 02/26/18] Ibuprofen [Motrin (*)] 400 mg PO Q6HRS PRN 03/05/18 [Last Taken 03/04/18] Ibuprofen/Diphenhydramine Cit [Advil Pm Caplet] 1 each PO HS PRN 03/05/18 [Last Taken Unknown] Lidocaine [Lidoderm] 1 each TP DAILY 03/05/18 [Last Taken 03/04/18] Multivitamins [Multivitamin (*)] 1 each PO DAILY 03/05/18 [Last Taken 02/26/18] oxyCODONE IR [Oxycodone Ir (*)] 10 mg PO Q4HRS PRN 03/05/18 [Last Taken 03/05/18 ] - NPO status NPO Status: no food or drink >8 hours NPO Since - Liquids (Date): 03/06/18 NPO Since - Liquids (Time): 23:00 NPO Since - Solids (Date): 03/06/18 NPO Since - Solids (Time): 20:00 - Anes Hx Anes Hx: no prior problems - Smoking Hx Smoking Status: Never smoked - Alcohol Use Alcohol Use: None - Family Anes Hx Family Anes Hx: none ANE Labs/Vital Signs - Labs Result Diagrams: 03/07/18 04:10 03/07/18 04:10 - Vital Signs Blood Pressure: 100/65 Heart Rate: 84 Respiratory Rate: 12 O2 Sat (%): 95 Height: 170.18 cm Weight: 57.6 kg ANE Physical Exam - Airway Neck exam: FROM Mallampati Score: Class 2 Mouth exam: normal dental/mouth exam - Pulmonary Pulmonary: no respiratory distress, clear to auscultation - Cardiovascular Cardiovascular: regular rate and rhythym, no murmur, rub, or gallop - ASA Status ASA Status: II ANE Anesthesia Plan Anesthesia Plan: general endotracheal anesthesia, GA w LMA
[2018-03-07] MEDS ORDERED: MIDAZOLAM 2 MG/2 ML VIAL IVP ONE (07:02)
[2018-03-07] MEDS ORDERED: PROPOFOL 200 MG/20 ML VIAL ONE (07:08)
[2018-03-07] MEDS ORDERED: fentaNYL 100 MCG/2 ML INJ ONE ×3 (07:08→08:35)
[2018-03-07] MEDS ORDERED: LIDOCAINE 2% 100 MG/5 ML SYR ONE (07:09)
[2018-03-07] MEDS ORDERED: MIDAZOLAM 2 MG/2 ML VIAL ONE (07:09)
[2018-03-07] MEDS ORDERED: ONDANSETRON 4 MG/2 ML VIAL ONE (07:44)
[2018-03-07] MEDS ORDERED: DEXAMETHASONE 4 MG/ML VIAL ONE (07:44)
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
[2018-03-07] MEDS ORDERED: ACETAMINOPHEN 500 MG TAB PO PRN (08:34)
[2018-03-07] MEDS ORDERED: DIAZEPAM 5 MG/ML 1 ML SYR IVP PRN (08:34)
[2018-03-07] MEDS ORDERED: PROMETHAZINE HCL 25 MG/ML INJ IVP PRN (08:34)
[2018-03-07] MEDS ORDERED: NALOXONE HCL 0.4 MG/ML INJ IVP PRN (08:34)
[2018-03-07] MEDS ORDERED: oxyCODONE IR 5 MG TAB PO PRN (08:34)
[2018-03-07] MEDS ORDERED: ONDANSETRON 4 MG/2 ML VIAL IVP PRN (08:34)
[2018-03-07] MEDS ORDERED: HYDROmorphONE/DILAUDID 1 MG/ML INJ IVP PRN (08:34)
--- NOTE | 2018-03-07 08:34 | POSTANESTH ---
Post Anesthetic Evaluation Cardiovascular Status: Normal, Stable, Similar to Pre-Op Cond Respiratory Status: Normal, Stable, Similar to Pre-op Cond. Level of Consciousness/Mental Status: Can Participate in Eval, Alert and Oriented Pain Control: Adequate, Prn Tx Ordered Nausea/Vomiting Control: Adequate, Prn Tx Ordered Complications Possibly Related to Anesthesia: None Noted
[2018-03-07] MEDS: fentaNYL 100 MCG/2 ML INJ IVP PRN ×2 (08:38→08:50)
[2018-03-07] MEDS ORDERED: NON-FORMULARY NEW DRUG (Lidocaine [Lidoderm] 1 EACH) TP SCH (09:00)
[2018-03-07] MEDS ORDERED: HYDROmorphONE/DILAUDID 2 MG/ML INJ ONE (09:05)
[2018-03-07] MEDS: HYDROmorphONE/DILAUDID 2 MG/ML INJ IVP PRN ×3 (09:10→09:58)
[2018-03-07] MEDS: FERROUS SULFATE 325 MG TAB PO SCH (10:33)
[2018-03-07] MEDS: LIDOCAINE 4%/MENTHOL 1% PATCH TD SCH ×2 (10:34→19:25)
[2018-03-07] MEDS: MULTIVITAMINS 1 EACH TAB PO SCH (10:34)
--- NOTE | 2018-03-07 11:15 | PDINTPN ---
Net Software Developer Progress Note Assessment/Plan: Assessment/Plan: * Sternal osteomyelitis and abscess-status post debridement * History of polysubstance abuse * History of chronic pain * Pain-requesting more pain medication. * VT prophylaxis * Stress ulcer prophylaxis Subjective: Complaining of pain. Objective: Vital Signs Temp Pulse Resp BP Pulse Ox 37 C 86 22 H 119/75 94 03/07/18 10:25 03/07/18 10:25 03/07/18 10:25 03/07/18 10:25 03/07/18 10:25 Microbiology 03/05/18 22:30 Gram Stain - Final Chest - Tissue 03/05/18 22:30 Gram Stain - Final Chest - Aspirate 03/05/18 22:30 Mycobacterial Smear (GOPAL) - Final Chest - Aspirate 03/05/18 22:30 Mycobacterial Smear (GOPAL) - Final Chest - Tissue Laboratory Results 03/07/18 04:10 03/07/18 04:10 03/06/18 03/07/18 03/08/18 05:59 05:59 05:59 Intake Total 1667 3768 600 Output Total 1275 1200 0 Balance 392 2568 600 PT 15.4 SEC (12.0-15.0) H 03/05/18 18:50 INR 1.20 (0.83-1.16) H 03/05/18 18:50 - Time Spent With Patient Time Spent With Patient: 25 min of time spent with patient, over 1/2 involved with coordination of care or counseling Physical Exam - Physical Exam General Appearance: alert, mild distress EENT: PERRL/EOMI Neck: non-tender, full range of motion, supple, normal inspection Respiratory: chest non-tender, lungs clear, normal breath sounds Cardiac/Chest: normal peripheral pulses, regular rate, rhythm, other (Wound VAC) Abdomen: normal bowel sounds, non-tender Pelvic Exam: deferred Rectal: deferred Skin: normal color, warm/dry Extremities: normal range of motion, non-tender, normal inspection, normal capillary refill Neuro/Psych: alert, oriented x 3 ICD10 Worksheet Patient Problems: Problems Problem Status Onset Abscess Acute Anemia Acute Narcotic abuse Acute Ventral hernia Acute
[2018-03-07] MEDS: ALPRAZolam 0.5 MG TAB PO PRN ×2 (11:51→16:46)
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
--- NOTE | 2018-03-07 18:45 | PCMIDPN ---
Assessment/Plan: Assessment/Plan: * MRSA chest wall abscess/sternal osteomyelitis/mediastinitis status post incision and drainage and excisional debridement of sternum: Culture show growth of MRSA from chest wall. Continue vancomycin with anticipated need for 6 weeks of antibiotic therapy. This is complicated by history of injection drug use. Anticipate vancomycin trough will increase over time. Monitor creatinine on 3 times per day dosing of vancomycin. * Left forearm abscess: Status post incision and drainage which is likely curative therapy. Also covered by vancomycin as outlined above. * History of injection drug use: Serologies for hepatitis B show immunity with negative screening for hepatitis C and HIV. 03/07/18 18:42 Subjective: Patient complains of sternal pain. Status post 2nd debridement of sternum today. Objective: Vital Signs Temp Pulse Resp BP Pulse Ox 37 C 95 22 H 127/68 H 94 03/07/18 10:25 03/07/18 18:00 03/07/18 18:00 03/07/18 18:00 03/07/18 18:00 Microbiology 03/05/18 22:30 Gram Stain - Final Chest - Aspirate 03/05/18 22:30 Mycobacterial Smear (GOPAL) - Final Chest - Aspirate 03/05/18 22:30 Mycobacterial Smear (GOPAL) - Final Chest - Tissue 03/05/18 22:30 Gram Stain - Final Chest - Tissue Laboratory Results 03/07/18 04:10 03/07/18 04:10 03/06/18 03/07/18 03/08/18 05:59 05:59 05:59 Intake Total 1667 3768 2350 Output Total 1275 1200 0 Balance 392 2568 2350 Vancomycin # 2 Chest cultures with growth of MRSA Blood cultures x2 no growth Echo result pending Laboratory Tests 03/06/18 20:15 Vancomycin Trough 10.0 - Physical Exam General Appearance: alert, no apparent distress, thin, non-toxic EENT: No conjunctival petechiae Respiratory: lungs clear, No respiratory distress Cardiac/Chest: regular rate, rhythm, systolic murmur (2/6 left and right upper sternal border), other (Wound VAC in place over sternum) Abdomen: non-tender, No distended Skin: No embolic lesions ICD10 Worksheet Patient Problems: Problems Problem Status Onset Abscess Acute Anemia Acute Narcotic abuse Acute Ventral hernia Acute
--- NOTE | 2018-03-07 21:19 | GOP ---
[f rep st] OPERATIVE REPORT DATE OF OPERATION: 03/07/2018 SURGEON: Shahrzad Deleon MD FIRER BOILER: Dr. Soni ANESTHESIA: General. ANESTHESIOLOGIST: Baldemar Solis MD PREOPERATIVE DIAGNOSIS: Chest wall abscess with sternal osteomyelitis. POSTOPERATIVE DIAGNOSIS: Chest wall abscess with sternal osteomyelitis. PROCEDURE PERFORMED: Debridement skin, soft tissue, and excision of sternum. FINDINGS: Wound measures 25 x 7 x 4 cm. SPECIMENS: None. ESTIMATED BLOOD LOSS: 50 cc. INDICATIONS: Esperanza Parra is a 22-year-old woman who I took to the operating room 2 days ago for a large abscess that went into her anterior mediastinum and I noted osteomyelitis of the sternum. I consulted with my colleague, , who recommended further debridement of the sternum. DESCRIPTION OF PROCEDURE: The patient was brought into the operating room, placed supine on the table, and general anesthesia was administered. Her chest was prepped and draped in the usual sterile fashion. The wound VAC was removed. The soft portions of the sternum were excised with a combination of a rongeur and a curette. The soft tissue was debrided with Misonix. Once adequate debridement was performed, the wound was irrigated. Hemostasis achieved with electrocautery. Erickson 3 g was placed in the wound. White sponge followed by black sponge and a sponge in the track was placed. The wound measures 7 x 25 x 4 cm. She was awakened in the operating room, extubated , transferred to PACU in stable condition. /[id number]/MODL MTDD
[2018-03-07] MEDS: ZOLPIDEM TARTRATE 5 MG TAB PO SCH (21:48)
[2018-03-08] MEDS: HYDROmorphONE/DILAUDID 2 MG TAB PO PRN ×5 (02:37→20:45)
[2018-03-08] MEDS: LORazepam 1 MG TAB PO PRN ×4 (03:52→21:15)
[2018-03-08] MEDS: VANCOMYCIN 1 GM in NS 250 ML IV SCH ×3 (06:22→20:47)
[2018-03-08] MEDS: FERROUS SULFATE 325 MG TAB PO SCH (08:21)
[2018-03-08] MEDS: ALPRAZolam 0.5 MG TAB PO PRN (08:21)
[2018-03-08] MEDS: MULTIVITAMINS 1 EACH TAB PO SCH (08:21)
--- NOTE | 2018-03-08 09:35 | PDINTPN ---
After School Program Assistant Progress Note Assessment/Plan: Assessment/Plan: * Sternal osteomyelitis and abscess-status post debridement -antibiotics per Infectious Disease -possible return to the OR in a couple of days * History of polysubstance abuse * History of chronic pain * Pain-requesting more pain medication. -will discuss with surgery * VT prophylaxis * Stress ulcer prophylaxis Subjective: Complains of pain. Breathing easily. Objective: Vital Signs Temp Pulse Resp BP Pulse Ox 37.1 C 103 H 18 120/74 95 03/08/18 08:00 03/08/18 08:00 03/08/18 08:00 03/08/18 08:00 03/08/18 08:00 Microbiology 03/05/18 22:30 Gram Stain - Final Chest - Aspirate 03/05/18 22:30 Mycobacterial Smear (GOPAL) - Final Chest - Aspirate 03/05/18 22:30 Mycobacterial Smear (GOPAL) - Final Chest - Tissue 03/05/18 22:30 Gram Stain - Final Chest - Tissue Laboratory Results 03/07/18 04:10 03/08/18 05:15 03/07/18 03/08/18 03/09/18 05:59 05:59 05:59 Intake Total 3768 2350 500 Output Total 1200 0 250 Balance 2568 2350 250 PT 15.4 SEC (12.0-15.0) H 03/05/18 18:50 INR 1.20 (0.83-1.16) H 03/05/18 18:50 - Time Spent With Patient Time Spent With Patient: 25 min of time spent with patient, over 1/2 involved with coordination of care or counseling Physical Exam - Physical Exam General Appearance: alert, mild distress EENT: PERRL/EOMI Neck: non-tender, full range of motion, supple, normal inspection Respiratory: chest non-tender, lungs clear, normal breath sounds, other (Wound VAC in place) Cardiac/Chest: normal peripheral pulses, regular rate, rhythm Abdomen: normal bowel sounds, non-tender, soft Pelvic Exam: deferred Rectal: deferred Skin: normal color, warm/dry Extremities: normal range of motion, non-tender, normal inspection, normal capillary refill Neuro/Psych: no motor/sensory deficits, alert, normal mood/affect, oriented x 3 ICD10 Worksheet Patient Problems: Problems Problem Status Onset Abscess Acute Anemia Acute Narcotic abuse Acute Ventral hernia Acute
[2018-03-08] MEDS ORDERED: LACTULOSE 20 GM/30 ML UDCUP PO PRN (10:16)
[2018-03-08] MEDS ORDERED: MAGNESIUM HYDROXIDE 30 ML UDCUP PO PRN (10:16)
[2018-03-08] MEDS ORDERED: BISACODYL 10 MG SUPP PR PRN (10:16)
[2018-03-08] MEDS ORDERED: POLYETHYLENE GLYCOL 3350 17 GM PKT PO PRN (10:16)
[2018-03-08] MEDS: SODIUM FERRIC GLUCONAT/SUCROSE 125 MG in NS 100 ML IV SCH (12:17)
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
[2018-03-08] MEDS ORDERED: IOPAMIDOL (ISOVUE-300) 100 ML BTL ONE (16:03)
--- NOTE | 2018-03-08 17:27 | PCMIDPN ---
Assessment/Plan: Assessment/Plan: * MRSA chest wall abscess/sternal osteomyelitis/mediastinitis status post incision and drainage and excisional debridement of sternum: Continue vancomycin with Q 8 hr dosing. Will not increase dose based on trough as suspect will begin to accumulate over time. Will need 6 weeks of IV vancomycin which is complicated by history of injection drug use. This was discussed with patient. Await CT scan of spine to assess for diskitis or epidural infection given paresthesias of right lower extremity although typically expect back pain also be component of presentation. MRI was precluded by multiple dermal piercings. TTE by report without evidence of endocarditis and blood cultures remain negative. Doubt that diffuse ecchymoses related to infection with concerned may be traumatic in etiology. * Left forearm abscess: Status post incision and drainage. No active signs of infection. * History of injection drug use: Serologies for hepatitis B show immunity with negative screening for hepatitis C and HIV. 03/08/18 17:24 Subjective: Patient complains of numbness and tingling in right lower extremity in stocking- type distribution from lower barnes through foot. Present x3 weeks. Objective: Vital Signs Temp Pulse Resp BP Pulse Ox 36.8 C 92 18 124/69 H 92 03/08/18 15:04 03/08/18 15:04 03/08/18 15:04 03/08/18 15:04 03/08/18 15:04 Microbiology 03/05/18 22:30 Gram Stain - Final Chest - Tissue 03/05/18 22:30 Gram Stain - Final Chest - Aspirate 03/05/18 22:30 Mycobacterial Smear (GOPAL) - Final Chest - Aspirate 03/05/18 22:30 Mycobacterial Smear (GOPAL) - Final Chest - Tissue Laboratory Results 03/07/18 04:10 03/08/18 05:15 03/07/18 03/08/18 03/09/18 05:59 05:59 05:59 Intake Total 3768 2350 500 Output Total 1200 0 250 Balance 2568 2350 250 Vancomycin # 3 Blood cultures x2 no growth Chest cultures MRSA Verbal transthoracic echo report provided to Dr. Bryant without evidence of endocarditis Laboratory Tests 03/08/18 12:25 Vancomycin Trough 10.6 - Physical Exam General Appearance: alert, no apparent distress EENT: No scleral icterus, No conjunctival petechiae Respiratory: lungs clear, No respiratory distress Cardiac/Chest: regular rate, rhythm, systolic murmur (2/6 left lower sternal border) Extremities: other (Left forearm abscess cavity with clean base and no surrounding erythema) Abdomen: non-tender, No distended Skin: other (Multiple ecchymoses over lower extremity; ecchymotic region over left ear) Neuro/Psych: other (Decreased sensation in stocking distribution over right lower extremity from lower barnes through foot; motor strength intact) ICD10 Worksheet Patient Problems: Problems Problem Status Onset Abscess Acute Anemia Acute Narcotic abuse Acute Ventral hernia Acute
[2018-03-08] MEDS: ALPRAZolam 1 MG TAB PO PRN (20:46)
[2018-03-08] MEDS: ZOLPIDEM TARTRATE 5 MG TAB PO SCH (21:15)
[2018-03-08] MEDS: SENNOSIDES/DOCUSATE SODIUM TAB PO SCH (21:16)
[2018-03-09] MEDS: HYDROmorphONE/DILAUDID 2 MG TAB PO PRN ×6 (00:45→22:09)
[2018-03-09] MEDS: LORazepam 1 MG TAB PO PRN ×6 (01:04→22:09)
[2018-03-09] MEDS: VANCOMYCIN 1 GM in NS 250 ML IV SCH ×3 (05:30→22:08)
[2018-03-09 06:07] LABS: PLATELET COUNT 573 10^3/uL (150-400)
[2018-03-09] MEDS: MULTIVITAMINS 1 EACH TAB PO SCH (08:46)
[2018-03-09] MEDS: FERROUS SULFATE 325 MG TAB PO SCH (08:46)
[2018-03-09] MEDS: LIDOCAINE 4%/MENTHOL 1% PATCH TD SCH (08:46)
[2018-03-09] MEDS: SENNOSIDES/DOCUSATE SODIUM TAB PO SCH ×2 (08:46→20:19)
[2018-03-09] MEDS: SODIUM FERRIC GLUCONAT/SUCROSE 125 MG in NS 100 ML IV SCH (09:59)
[2018-03-09] MEDS: ALPRAZolam 1 MG TAB PO PRN ×2 (14:38→19:49)
--- NOTE | 2018-03-09 16:08 | PCMIDPN ---
Assessment/Plan: Assessment/Plan: * MRSA chest wall abscess/sternal osteomyelitis/mediastinitis status post incision and drainage and excisional debridement of sternum: Continue vancomycin 1 g IV q.8 hours. Will repeat vancomycin trough on 03/11/2018 to see if accumulating over time. Goal ultimately will be approximately 15. CT scan of back did not show evidence of diskitis or epidural abscess. Plans for musculoskeletal flap coverage of chest wall next week. * Left forearm abscess: Status post incision and drainage. * History of injection drug use: Serologies for hepatitis B show immunity with negative screening for hepatitis C and HIV. 03/09/18 16:05 Subjective: Patient complains of chest wall tenderness. Describes plans for flap procedure next week. Objective: Vital Signs Temp Pulse Resp BP Pulse Ox 36.6 C 111 H 16 108/70 95 03/09/18 15:04 03/09/18 15:04 03/09/18 15:04 03/09/18 15:04 03/09/18 15:04 Microbiology 03/05/18 22:30 Gram Stain - Final Chest - Aspirate 03/05/18 22:30 Gram Stain - Final Chest - Tissue Laboratory Results 03/09/18 05:30 03/09/18 05:30 03/08/18 03/09/18 03/10/18 05:59 05:59 05:59 Intake Total 2350 1250 Output Total 0 350 Balance 2350 900 Vancomycin # 4 Blood cultures x2 no growth CT of spine without evidence of diskitis or epidural abscess - Physical Exam General Appearance: alert, no apparent distress EENT: No scleral icterus, No thrush, No conjunctival petechiae Respiratory: lungs clear, No respiratory distress Cardiac/Chest: regular rate, rhythm Abdomen: non-tender, No distended ICD10 Worksheet Patient Problems: Problems Problem Status Onset Abscess Acute Anemia Acute Narcotic abuse Acute Ventral hernia Acute
--- NOTE | 2018-03-09 19:18 | HOSPPROG ---
Hospitalist Progress Note Assessment/Plan: Assessment: 22 yo F p/w acute anterior chest abscess w/ osteomyelitis s/p sternal fracture c /b LUE abscess in setting of IVDU Plan: # chest wall abscess and sternal osteomyelitis: s/p surgical debridement and in setting of sternal fracture and hematoma - d/w / Pancho, she reports plan for flap placement by Dr. Lemus next week - continued on IV vancomycin w/ Cr monitoring - Echo w/o obvious veg, d/w Dr. Lake, no indication for LUIS FERNANDO given that it will not alter duration of therapy and no surgically evident lesions on TTE - d/w Dr. Lake, he recommends 6 weeks of IV Abx, he and I both agree that this should be performed in a monitored setting given her reported recent use of IVDU (2-3 weeks ago) - if she chooses to leave here AMA, she needs to have PICC line pulled and given Rx for PO as well as outpt ID appt # left arm abscess: / IVDA, s/p I&D by Dr. Deleon, receiving ongoing wound care # chronic opiate and benzodiazepine use disorder and continuous dependency: with acute pain more difficult to manage given hx of chronic opiate use and tolerance - continues to be a difficult item to address given her underlying history of addiction and tolerance - cont on oxy IR and do not permit IV Rx # anxiety: chronically on xanax, will continue, but ativan has been added and patient is now dependent on this - will address starting buspar or ssri w/ patient tomorrow, and plan to replace it for ativan given her strong abuse hx and potential (see [facility] note) # polysubstance abuse: hx of IVDA, states last use was 4 weeks ago - HCV/HIV neg # anemia of chronic inflammatory disease w/ iron deficient component: give IV iron x 3 days, recheck Hgb # paresthesias: possibly neuropathy in setting of drug abuse, no e/o spinal lesion on CT - d/w patient, start gabapentin 600 HS to improve sleep, has hx of prior gabapentin use so should tolerate Diet. Reg PPx. Low risk, ambulate Code. Full Dispo. ADD uncertain, patient unsafe to leave monitored setting w/ PICC line, requiring surg reassess 03/10, encourage patient that a monitored setting such as a chcf facility for ongoing wound care and antibiotic management would be in her best interest, patient will consider. High-level medical complexity, high risk of worsening morbidity secondary to the complicated medical and psychosocial issues outlined above. Subjective: Patient reports that she has poor sleep, that her anxiety is difficult to control, that she wants to go home Objective: Vital Signs Temp Pulse Resp BP Pulse Ox 36.6 C 111 H 16 108/70 95 03/09/18 15:04 03/09/18 15:04 03/09/18 15:04 03/09/18 15:04 03/09/18 15:04 Microbiology 03/05/18 22:30 Gram Stain - Final Chest - Aspirate 03/05/18 22:30 Gram Stain - Final Chest - Tissue Laboratory Results 03/09/18 05:30 03/09/18 05:30 03/08/18 03/09/18 03/10/18 05:59 05:59 05:59 Intake Total 2350 1250 860 Output Total 0 350 Balance 2350 900 860 PT 15.4 SEC (12.0-15.0) H 03/05/18 18:50 INR 1.20 (0.83-1.16) H 03/05/18 18:50 - Physical Exam Constitutional: no apparent distress, not in pain, chronically ill appearing, uncomfortable Cardiovascular: regular rate and rhythym, no murmur, rub, or gallop, No edema Respiratory: no respiratory distress, no rales or rhonchi, clear to auscultation Gastrointestinal: normoactive bowel sounds, soft, non-tender abdomen, no palpable masses, No distension Skin: other (Minimal erythema in the inferior area of the wound VAC, well- healed abdominal scar, scattered ecchymoses over the bilateral lower extremities , ecchymoses over her left ear) Musculoskeletal: other (Full range of motion right ankle and right knee without pain elicited) Neurologic: AAOx3, No sensation intact bilaterally (Subjective paresthesias distal to the right knee), No weakness (Motor strength 5/5 bilateral upper and lower extremities) Psychiatric: not encephalopathic, thought process linear, anxious, No agitated ICD10 Worksheet Patient Problems: Problems Problem Status Onset Ventral hernia Acute Narcotic abuse Acute Abscess Acute Anemia Acute
[2018-03-09] MEDS: ZOLPIDEM TARTRATE 5 MG TAB PO SCH (19:49)
[2018-03-09] MEDS: oxyCODONE IR 5 MG TAB PO PRN (19:49)
--- NOTE | 2018-03-09 20:17 | SOAPPROG ---
SOAP Progress Note Assessment/Plan: Assessment: s/p debridement, skin , soft tissue, muscle and sternum Infection present with osteomylitis continue wound vac Discussed case with Dr. Lemus who wants to be present at wound vac change Likely flap next week Will need excuse to excuse from school for the remaining of semester Serious surgery Will need further treatment Will need IV abx Discussed case with Esperanza, her mom and her dad Discussed with Dr. Lemus and Dr. Bryant S: Feeling better. Complaining that is not sleeping well and foot is falling asleep O: Wound vac to suction Plan: 03/09/18 20:14 Objective: Vital Signs Temp Pulse Resp BP Pulse Ox 36.6 C 80 14 109/74 95 03/09/18 19:50 03/09/18 19:50 03/09/18 19:32 03/09/18 19:50 03/09/18 19:50 Microbiology 03/05/18 22:30 Gram Stain - Final Chest - Aspirate 03/05/18 22:30 Gram Stain - Final Chest - Tissue Laboratory Results 03/09/18 05:30 03/09/18 05:30 03/08/18 03/09/18 03/10/18 05:59 05:59 05:59 Intake Total 2350 1250 860 Output Total 0 350 Balance 2350 900 860 PT 15.4 SEC (12.0-15.0) H 03/05/18 18:50 INR 1.20 (0.83-1.16) H 03/05/18 18:50 ICD10 Worksheet Patient Problems: Problems Problem Status Onset Abscess Acute Anemia Acute Narcotic abuse Acute Ventral hernia Acute
[2018-03-09] MEDS ORDERED: GABAPENTIN 300 MG CAP PO SCH (21:00)
[2018-03-10] MEDS: LORazepam 1 MG TAB PO PRN ×3 (02:10→11:39)
[2018-03-10] MEDS: oxyCODONE IR 5 MG TAB PO PRN ×5 (02:13→22:36)
[2018-03-10] MEDS: HYDROmorphONE/DILAUDID 2 MG TAB PO PRN ×4 (03:54→20:55)
[2018-03-10 04:35] LABS: PLATELET COUNT 585 10^3/uL (150-400)
[2018-03-10] MEDS: VANCOMYCIN 1 GM in NS 250 ML IV SCH ×3 (06:06→21:20)
[2018-03-10] MEDS: ALPRAZolam 1 MG TAB PO PRN (08:35)
[2018-03-10] MEDS: SENNOSIDES/DOCUSATE SODIUM TAB PO SCH ×2 (08:35→20:59)
[2018-03-10] MEDS: FERROUS SULFATE 325 MG TAB PO SCH (08:36)
[2018-03-10] MEDS: MULTIVITAMINS 1 EACH TAB PO SCH (08:36)
[2018-03-10] MEDS: LIDOCAINE 4%/MENTHOL 1% PATCH TD SCH (08:36)
[2018-03-10] MEDS: ALTEPLASE 2 MG VIAL IVP PRN ×2 (08:37→08:38)
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
[2018-03-10] MEDS ORDERED: HYDROmorphone HCL/NS 0.5 MG/ML SYR IVP ONE (13:15)
[2018-03-10] MEDS: SODIUM FERRIC GLUCONAT/SUCROSE 125 MG in NS 100 ML IV SCH (13:32)
--- NOTE | 2018-03-10 13:53 | WOCRNPDOC ---
[facility] Advanced Assessment Note - Skin Integrity Problem, Advanced Assess Left Lower Arm Dressing Type: Allevyn Life, Hydrofera Blue Ready Exudate Amount: Scant Exudate Color: Reddish/Yellow Exudate Characteristic(s): Serosanguinous Integumentary Issue Intervention: Dressing Changed [place] Wound Tissue: Intact [place] Wound Swelling: None Wound Bed Color: Red, Yellow Wound Bed Constitution: Red/[place] - Non Granular Tissue, Adhered Slough Wound Edges: Well Defined Site Odor: None Site Measurement - Head-to-Toe Length X Width X Depth (cm): 1.5cmx0.7cmx0.2cm Skin Integrity Problem Comment: Wound on posterior aspect of L lower arm, s/p I& D on 03/05, w/ adhered slough and non-granulating smooth tissue, epithelialization along margins. No erythema, swelling, or fluctuance. Will continue w/ plan of care, which includes dressing change q3 w/ Hydrofera Blue ready and Allevyn. Sternal Surgical Wound/Incision Dressing Type: Black Vac Foam (2 pieces removed), White Vac Foam (1 piece removed), Wound Vac Dressing Description: Not Intact (removed partially by Dr. Lemus) Exudate Color: Reddish/Yellow Exudate Characteristic(s): Serosanguinous Integumentary Issue Intervention: Dressing Changed [place] Wound Tissue: Erythema (mild, discrete), Intact [place] Wound Swelling: Mild Wound Bed Color: Red, Yellow Wound Bed Constitution: Granulation Tissue (60%), Undermining, Bone (10%), Mixed Loose & Adhered Slough/Eschar (30% loose/adhered slough adjacent to bone) Wound Edges: Well Defined Site Odor: None Site Measurement - Head-to-Toe Length X Width X Depth (cm): 5.6cmx14.3cmx2.2cm. Underminin.5cm @ 2 o'clock. 2cm from 6-7 o'clock. 3cmfrom 11-12 o'clock Skin Integrity Problem Comment: Vac dressing partially removed by Dr. Lemus in an attempt to visualize wound bed to assess readiness for flap surgery. Per Dr. Lemus, the deeper aspect of the wound adjacent to the sternum is not ready for flap suregry yet; suspects it may need further debridement next week. Will follow-up on Tuesday 03/13 to re-assess. Patient reported "12/10" pain from the partial dressing removal, was tearful and visibly distraught. 1x dose of 0.1mg Dilaudid IV ordered by CLARK Castro to help relieve pain during dressing removal and reapplication. Dressing saturated w/ NS to loosen. Sternum is visible at two points along the right/medial aspect of the wound bed, with both loose and adhered slough in a depression between the two areas of bone. Remaining wound bed mostly granulationg tissue, some residual cautery evident. Wound undermines most significantly at 2 o'clock, 6.5cm. Periwound skin prepped and draped, 1 piece of white foam was placed over exposed bone, 1 piece of black foam placed into undermining at 2 o'clock, and 1 piece of black foam used to cover entire wound bed. Vac settings resume at -125mmHg. Plan is to re- assess on Tuesday w/ Dr. Lemus and CLARK Castro.
[2018-03-10] MEDS: clonazePAM 0.5 MG TAB PO PRN ×2 (15:09→21:09)
[2018-03-10] MEDS: busPIRone 5 MG TAB PO SCH ×2 (15:10→20:59)
--- NOTE | 2018-03-10 15:17 | ECHO ---
[email or web address] [address] [address] Main: [phone] Fax: Transthoracic Echocardiogram Name: DARRON POPE MR#: [id number] Study Date: 03/06/2018 Study Time: 11:16 AM Date of : 1995 Age: 22 year(s) Height: 170.2 cm (67 in.) Weight: 58.97 kg (130 lb.) BSA: 1.68 m2 Gender: Female Examination: Echo Indication: Pericardial abscess with fractured sternum Image Quality: Adequate Contrast: Requested by: Shahrzad Deleon BP: 110 mmHg/54 mmHg Heart Rate: Rhythm: Indication: Pericardial abscess with fractured sternum Procedure Staff Outboard Technician: Kianna Barnes RDCS Reading Physician: Hitesh Cedeno MD Requesting Provider: Conclusions: Normal size left ventricle. Normal global systolic LV function. The ejection fraction is visually estimated to be 65 %. No regional wall motion abnormality. Normal diastolic LV function. Mild tricuspid regurgitation is present. No pericardial effusion. Measurements: Chambers Valvular Assessment AV/MV Valvular Assessment TV/PV Normal Normal Normal Name Value Range Name Value Range Name Value Range Ao Mary (2D): 2.7 cm (1.4 cm-2.6 AV Vmax: 0.98 m/s (1 m/s-1.7 PV Vmax: 1.21 m/s (0.6 m/s-0.9 cm) m/s) m/s) IVSd (2D): 0.9 cm (0.6 cm-1.1 AV maxP mmHg ( - ) PV PGmax: 6 mmHg ( - ) cm) AV meanP mmHg ( - ) LVDd (2D): 4.5 cm (3.9 cm-5.3 LVOT Vmax: 1.08 m/s (0.7 m/s-1.1 cm) m/s) LVDs (2D): 2.8 cm (2.1 cm-4 WINSTON (Vmax): 3.5 cm2 ( - ) cm) WINSTON (VTI): 2.8 cm ( - ) LVPWd (2D): 0.9 cm ( - ) MV E Vmax: 0.82 m/s ( - ) LVOTd 2.0 cm 2.0 cm mm MV A Vmax: 0.68 m/s ( - ) LVEF (BP): 75 % (>=55 %) MV E/A: 1.21 ( - ) Visual EF: 65 % MV PHT: 0.020 s ( - ) RVDd(2D): 1.7 cm (1.9 cm-3.8 MVA (PHT): 11.0 s ( - ) cmmm) Continued Measurements: Chambers Valvular Assessment AV/MV Valvular Assessment TV/PV Patient: DARRON POPE Study Date: 03/06/2018 Page 1 of 2 11:16 AM Name Value Name Value Name Value LADs: 2.6 cm MV DecTime: 113 m/s CVP (est.): 5 mmHg LADs Lon.4 cm MV E/E' Septal: 7.70 LA Area: 16.7 cm2 MV E/E' Lateral: 4.70 RA Area: 14.9 cm2 Additional Vessels Name Value Ao Ascendin.2 cm Inferior Vena Cava: 1.7 cm Findings: Left Ventricle: Normal size left ventricle. No LV hypertrophy. Normal global systolic LV function. The ejection fraction is visually estimated to be 65 %. No regional wall motion abnormality. Normal diastolic LV function. Right Ventricle: Normal size right ventricle. Normal RV function. Left Atrium: The left atrium is normal in size. Right Atrium: The right atrium is normal in size. Mitral Valve: The mitral valve is normal in appearance and function. Mild mitral valve regurgitation is present. No mitral stenosis is present. Aortic Valve: The aortic valve is normal in appearance and function. There is no aortic valve regurgitation. No aortic valve stenosis is present. Tricuspid Valve: The tricuspid valve is normal in appearance and function. Mild tricuspid regurgitation is present. Pulmonic Valve: The pulmonic valve is normal in appearance and function. There is no pulmonic regurgitation seen. Aorta: The aorta is normal. Normal size aortic root measuring 2.7 cm. Normal size ascending aorta measuring 2.2 cm. IVC: The IVC is normal sized. Pericardium: No pericardial effusion. No pleural effusion. (No Signature Object) Patient: DARRON MONTEIRON: [id number] Study Date: 03/06/2018 Page 2 of 2 11:16 AM [id number]
--- NOTE | 2018-03-10 18:03 | HOSPPROG ---
Hospitalist Progress Note Assessment/Plan: Assessment: 22 yo F p/w acute anterior chest abscess w/ osteomyelitis s/p sternal fracture c /b LUE abscess in setting of IVDU Plan: # chest wall abscess and sternal osteomyelitis: s/p surgical debridement and in setting of sternal fracture and hematoma - patient w/ significant pain during vac change/eval today, recommend pre- medicating w/ PO pain Rx 30-60 minutes PRIOR to next change - per surg, area w/ some tissue that requires further monitoring/tx prior to flap - continued on IV vancomycin w/ Cr monitoring - Echo w/o obvious veg, d/w Dr. Lake, no indication for LUIS FERNANDO given that it will not alter duration of therapy and no surgically evident lesions on TTE - ID recommends 6 weeks of IV Abx, we both agree that this should be performed in a monitored setting given her reported recent use of IVDU (4 weeks ago, d/w Dr. Deleon) - d/w case mgmt, we believe that the safest discharge plan would be either SNF or LTAC for ongoing surgical wound care (as the wound has high risk of dehiscence if not properly managed), and I counseled the patient and her father regarding this today - if she chooses to leave here AMA, she needs to have PICC line pulled and given Rx for PO as well as outpt ID appt # left arm abscess: 2/2 IVDA, s/p I&D by Dr. Deleon, receiving ongoing wound care # chronic opiate and benzodiazepine use disorder and continuous dependency: with acute pain more difficult to manage given hx of chronic opiate use and tolerance - continues to be a difficult item to address given her underlying history of addiction and tolerance - cont on oxy IR and do not permit IV Rx # anxiety: chronically on xanax, but overusing ativan PRN - counseled patient that this concomitant use of xanax and ativan is both risky and not accomplishing anxiety control for her, so we agreed to adjust to klonipin bid PRN w/ dose range, avoid other PRN benzos, and start scheduled buspar 7.5 bid to be uptitrated # polysubstance abuse: hx of IVDA, states last use was 4 weeks ago - HCV/HIV neg # anemia of chronic inflammatory disease w/ iron deficient component: give IV iron x 3 days, recheck Hgb # paresthesias: possibly neuropathy in setting of drug abuse, no e/o spinal lesion on CT - patient requesting uptitration to 900mg HS Diet. Reg PPx. Low risk, ambulate Code. Full Dispo. ADD uncertain, patient unsafe to leave monitored setting w/ PICC line, requiring surg reassess 03/13, encourage patient that a monitored setting such as a alf facility for ongoing wound care and antibiotic management would be in her best interest, patient will consider. Subjective: severe pain w/ vac change Objective: Vital Signs Temp Pulse Resp BP Pulse Ox 36.4 C 91 16 113/58 L 98 03/10/18 15:47 03/10/18 15:47 03/10/18 15:47 03/10/18 15:47 03/10/18 15:47 Microbiology 03/05/18 22:30 Gram Stain - Final Chest - Aspirate 03/05/18 22:30 Gram Stain - Final Chest - Tissue Laboratory Results 03/10/18 04:20 03/10/18 04:20 03/09/18 03/10/18 03/11/18 05:59 05:59 05:59 Intake Total 1250 1110 360 Output Total 350 25 Balance 900 1110 335 PT 15.4 SEC (12.0-15.0) H 03/05/18 18:50 INR 1.20 (0.83-1.16) H 03/05/18 18:50 - Time Spent With Patient Time Spent with Patient: greater than 35 minutes Time Spent with Patient: Greater than 35 minutes spent on this patients care, greater than 50% of time spent counseling, educating, and coordinating care regarding the above mentioned plan. - Physical Exam Constitutional: chronically ill appearing, uncomfortable, No not in pain ( moderate) Cardiovascular: No systolic murmur, No irregularly irregular, No tachycardia, No edema Respiratory: no respiratory distress, no rales or rhonchi, clear to auscultation Gastrointestinal: normoactive bowel sounds, soft, non-tender abdomen, no palpable masses, No distension Skin: other (mild erythema at inferior aspect of wound) Neurologic: AAOx3 Psychiatric: not encephalopathic, anxious, No agitated ICD10 Worksheet Patient Problems: Problems Problem Status Onset Ventral hernia Acute Narcotic abuse Acute Abscess Acute Anemia Acute
--- NOTE | 2018-03-10 18:21 | ASMTCMCOM ---
CM Note CM Note Notes: Update to 03/10/18 note (see previous entry) - spoke with Dr. Bryant regarding pt's situation and potential needs. Dr. Bryant spoke with the pt's father - pt's father requested we determine if Dr. Yazan Coronel (plastic surgeon) is in-network with [facility]. In addition, pt and pt's father were interested in finding out costs for home care/home infusion services. Dr. Bryant spoke with the pt regarding various options for 6 week IV antibiotic therapy. Pt remains a poor candidate for home care given her IV drug use history. Referral sent to [facility] at 's request. Per Luiza at [facility], the pt is covered at 80% once her $2500 deductible is met (she has currently met approx $290 towards her deductible), infusion services would be covered at 100% once her $5000 [id number] maximum has been met (she has currently met approx $750 of her maximum). Luiza reiterated the risks of providing home care/infusion services to someone with an IV drug use history. Per Dr. Bryant, pt is slowly opening up to the idea of SNF. [facility]'s behalf for potential SNF options. Both facilities declined secondary to drug history. LTAC referrals sent to [facility], [facility] and [facility] in [place]; all indicated an interest, but would like additional information. CM will need to further address the prospect of an LTAC with pt and pt's family. Multiple calls placed to Dr. Lemus's office to verify pt's benefits and network coverages. Per recording on office phone number [phone], office closed at 1500 today. Unable to verify benefits at this time. CM will need to try office again on Tuesday03/13/18. Pt and pt's family encouraged to call [employer] number on the back of the insurance card to verify physician coverages. Call received from Shawna Lopes RN with [facility]. Shawna is following pt from the outpt clinic side and strongly suggests LTAC placement given pt's complicated situation. Shawna is available for any further questions or assistance. Discharge plan remains unclear at this time. CM to fax updates to LTACs on Tuesday, if pt is interested. CM will continue to follow. Current Discharge Plan: To be determined Date Signed: 03/10/2018 06:20 PM Electronically Signed By:Paloma Scott RN
--- NOTE | 2018-03-10 19:56 | SOAPPROG ---
[facility] Progress Note Assessment/Plan: Assessment/Plan: 22yo F s/p debridement of large anterior chest abscess extending into anterior mediastinum with sternal osteomyelitis Culture shows MRSA IV vancomycin - appreciate ID Evaluated today by Dr. Lemus of plastic surgery, who determined that wound not yet ready for flap - will reevaluate next week School excuse letter in pt chart Appreciate hospitalists S: crying because she is having pain from dressing being removed. O: laying in bed, crying and tearful No increased WOB Anterior chest wound vac removed. Wound measures 5.6cmx14.3cmx2.2cm. Undermining 6.5cm @ 2 o'clock. 2cm from 6-7 o'clock. 3cm from 11-12 o'clock. 2 small areas of palpable sternum >75% healthy granulation in the base of the wound. No debridement performed No surrounding erythema 03/10/18 19:57 Objective: Vital Signs Temp Pulse Resp BP Pulse Ox 36.4 C 91 16 113/58 L 98 03/10/18 15:47 03/10/18 15:47 03/10/18 15:47 03/10/18 15:47 03/10/18 15:47 Microbiology 03/05/18 22:30 Gram Stain - Final Chest - Aspirate 03/05/18 22:30 Gram Stain - Final Chest - Tissue Laboratory Results 03/10/18 04:20 03/10/18 04:20 03/09/18 03/10/18 03/11/18 05:59 05:59 05:59 Intake Total 1250 1110 860 Output Total 350 25 Balance 900 1110 835 PT 15.4 SEC (12.0-15.0) H 03/05/18 18:50 INR 1.20 (0.83-1.16) H 03/05/18 18:50 ICD10 Worksheet Patient Problems: Problems Problem Status Onset Abscess Acute Anemia Acute Narcotic abuse Acute Ventral hernia Acute
[2018-03-10] MEDS: GABAPENTIN 300 MG CAP PO SCH (20:58)
[2018-03-10] MEDS: ZOLPIDEM TARTRATE 5 MG TAB PO SCH (22:34)
[2018-03-11] MEDS: HYDROmorphONE/DILAUDID 2 MG TAB PO PRN ×5 (01:20→19:58)
[2018-03-11] MEDS: oxyCODONE IR 5 MG TAB PO PRN ×5 (02:53→21:47)
[2018-03-11 04:42] LABS: PLATELET COUNT 528 10^3/uL (150-400)
[2018-03-11] MEDS: VANCOMYCIN 1 GM in NS 250 ML IV SCH ×3 (05:45→22:17)
[2018-03-11] MEDS: MULTIVITAMINS 1 EACH TAB PO SCH (09:10)
[2018-03-11] MEDS: FERROUS SULFATE 325 MG TAB PO SCH (09:11)
[2018-03-11] MEDS: busPIRone 5 MG TAB PO SCH ×2 (09:12→21:47)
[2018-03-11] MEDS: clonazePAM 0.5 MG TAB PO PRN ×2 (09:13→17:24)
[2018-03-11] MEDS: LIDOCAINE 4%/MENTHOL 1% PATCH TD SCH (09:16)
[2018-03-11] MEDS: SENNOSIDES/DOCUSATE SODIUM TAB PO SCH ×3 (09:22→22:20)
--- NOTE | 2018-03-11 13:17 | PCMIDPN ---
Assessment/Plan: # MRSA chest wall abscess/sternal osteomyelitis/mediastinitis status post incision and drainage and excisional debridement of sternum. CT scan of back did not show evidence of diskitis or epidural abscess. --Continue vancomycin 1 g IV q.8 hours. Will need prolonged therapy, will need to be under observation due to h/o IVDU --Plans for musculoskeletal flap coverage of chest wall next week. --patient refusing dressing change without general anesthesia and very unhappy with last dressing change in which she was awake. The mother want to "talk to administration" and don't want the same plastic surgeon. The patient is not as intense about severing care with plastic surgeon. I explained that different plastic surgeon may require transfer of care. Recommended reporting experience to patient advocate and I started this process # Left forearm abscess: Status post incision and drainage. # History of injection drug use: Serologies for hepatitis B show immunity with negative screening for hepatitis C and HIV. Care coordinated with Dr. Bryant Subjective: patient refusing dressing change without general anesthesia Objective: Vital Signs Temp Pulse Resp BP Pulse Ox 36.8 C 107 H 16 111/61 92 03/11/18 12:49 03/11/18 12:49 03/11/18 12:49 03/11/18 12:49 03/11/18 12:49 Microbiology 03/05/18 22:30 Gram Stain - Final Chest - Aspirate 03/05/18 22:30 Gram Stain - Final Chest - Tissue Laboratory Results 03/11/18 04:10 03/11/18 04:10 03/10/18 03/11/18 03/12/18 05:59 05:59 05:59 Intake Total 1110 1760 Output Total 25 Balance 1110 1735 - Physical Exam General Appearance: alert Respiratory: No accessory muscle use Cardiac/Chest: tachycardia, other (wound vac present on chest, no surrounding erythema), No systolic murmur Extremities: No pedal edema Abdomen: non-tender, soft Skin: pallor, No rash Neuro/Psych: alert, oriented x 3, depressed affect - Time Spent With Patient Time Spent with Patient: greater than 35 minutes (discussing experience with wound vac change with mother over phone) Time Spent with Patient: Greater than 35 minutes spent on this patients care, greater than 50% of time spent counseling, educating, and coordinating care regarding the above mentioned plan. ICD10 Worksheet Patient Problems: Problems Problem Status Onset Abscess Acute Anemia Acute Narcotic abuse Acute Ventral hernia Acute
--- NOTE | 2018-03-11 16:11 | ASMTCMCOM ---
CM Note CM Note Notes: Dr Bryant asked CM to reach out to [facility] access line for possible tx of pt. Someone from the access line called later in the day to state that MD discussion to tx pt is ongoing and they will check back tomorrow or Tuesday. CM to follow. Date Signed: 03/11/2018 04:10 PM Electronically Signed By:Ernestina Canales LCSW
--- NOTE | 2018-03-11 19:03 | HOSPPROG ---
Hospitalist Progress Note Assessment/Plan: Assessment: 22 yo F p/w acute anterior chest abscess w/ osteomyelitis s/p sternal fracture c /b LUE abscess in setting of IVDU Plan: # chest wall abscess and sternal osteomyelitis: s/p surgical debridement and partial sternum removal in setting of sternal fracture, infected hematoma, and eventual osteomyelitis - patient w/ significant pain during vac change/eval 03/10, and she feels like the experience was highly traumatic - the area had approx 75% granulation tissue, so warrants reassess early this week, but timing of flap remains uncertain and will be based on wound assessments, which the patient is now requesting occur under general anaesthesia - I am uncertain whether this is a safe request, and I will d/w gen surg/ plastics - patient reports that she does not feel comfortable receiving care from our plastic surgery provider in the context of above, and she has requested that we consider facility transfer, which I facilitated w/ [facility], discussing her care w/ Dr. Dorado (medicine) and Dr. Gerard (plastics) who both agreed that this would be an appropriate transfer based on patient request, but Dr. Dorado and I agreed that transfer would be best on a week-day so patient can have the best opportunity to have a consistent care team and also coordinate the surgical impression of ongoing care directly from Dr. Deleon to the surgical service which would be continuing said care, and we will continue the conversation w/ the patient and [facility] over the next 48hrs to determine whether this continues to be her preference, or whether she is willing to work w/ Dr. Lemus - continued on IV vancomycin w/ Cr monitoring - ID recommends 6 weeks of IV Abx, we both agree that this should be performed in a monitored setting given her reported recent use of IVDU (4 weeks ago, d/w Dr. Deleon) - d/w case mgmt, we believe that the safest discharge plan would be either SNF or LTAC for ongoing surgical wound care (as the wound has high risk of dehiscence if not properly managed) - if she chooses to leave here AMA, she needs to have PICC line pulled and given Rx for PO as well as outpt ID appt # left arm abscess: 2/2 IVDA, s/p I&D by Dr. Deleon, receiving ongoing wound care # chronic opiate and benzodiazepine use disorder and continuous dependency: with acute pain more difficult to manage given hx of chronic opiate use and tolerance - continues to be a difficult item to address given her underlying history of addiction and tolerance - cont on oxy IR/dilaudid PRN and do not permit IV Rx (unless to pre-medicate for wound care) # anxiety: chronically on xanax, but overusing ativan PRN - adjusted to klonipin bid PRN w/ dose range, avoid other PRN benzos, and started scheduled buspar 7.5 bid to be uptitrated # polysubstance abuse: hx of IVDA, states last use was 4 weeks ago - HCV/HIV neg # anemia of chronic inflammatory disease w/ iron deficient component: given IV iron x 3 days, monitor Hgb # paresthesias: possibly neuropathy in setting of drug abuse, no e/o spinal lesion on CT - cont 900mg HS Diet. Reg PPx. Low risk, ambulate Code. Full Dispo. ADD uncertain, patient unsafe to leave monitored setting w/ PICC line, requiring surg reassess 03/13, encourage patient that a monitored setting such as a long-term facility/LTAC for ongoing wound care and antibiotic management would be in her best interest, patient will consider. Subjective: patient distraught after wound vac change 03/10, feels traumatized Objective: Vital Signs Temp Pulse Resp BP Pulse Ox 36.7 C 88 17 118/79 98 03/11/18 17:28 03/11/18 17:28 03/11/18 17:28 03/11/18 17:28 03/11/18 17:28 Microbiology 03/05/18 22:30 Gram Stain - Final Chest - Aspirate 03/05/18 22:30 Gram Stain - Final Chest - Tissue Laboratory Results 03/11/18 04:10 03/11/18 04:10 03/10/18 03/11/18 03/12/18 05:59 05:59 05:59 Intake Total 1110 1760 250 Output Total 25 Balance 1110 1735 250 PT 15.4 SEC (12.0-15.0) H 03/05/18 18:50 INR 1.20 (0.83-1.16) H 03/05/18 18:50 - Time Spent With Patient Time Spent with Patient: greater than 35 minutes Time Spent with Patient: Greater than 35 minutes spent on this patients care, greater than 50% of time spent counseling, educating, and coordinating care regarding the above mentioned plan. - Physical Exam Constitutional: chronically ill appearing, uncomfortable, No no apparent distress (moderately), No not in pain (mild) Skin: other (no erythema or duskiness around the edges of the vac, tenderness present, edges appear to be well adhered to skin) Psychiatric: anxious, agitated, other (tearful, labile affect, visibly distressed) ICD10 Worksheet Patient Problems: Problems Problem Status Onset Ventral hernia Acute Narcotic abuse Acute Abscess Acute Anemia Acute
[2018-03-11] MEDS: GABAPENTIN 300 MG CAP PO SCH (21:46)
[2018-03-11] MEDS: ZOLPIDEM TARTRATE 5 MG TAB PO SCH (21:46)
[2018-03-12] MEDS: HYDROmorphONE/DILAUDID 2 MG TAB PO PRN ×5 (00:01→20:41)
[2018-03-12] MEDS: oxyCODONE IR 5 MG TAB PO PRN ×4 (03:33→20:45)
[2018-03-12] MEDS: VANCOMYCIN 1 GM in NS 250 ML IV SCH (05:37)
[2018-03-12] MEDS: LIDOCAINE 4%/MENTHOL 1% PATCH TD SCH (09:59)
[2018-03-12] MEDS: SENNOSIDES/DOCUSATE SODIUM TAB PO SCH ×2 (10:00→22:00)
[2018-03-12] MEDS: FERROUS SULFATE 325 MG TAB PO SCH (10:01)
[2018-03-12] MEDS: MULTIVITAMINS 1 EACH TAB PO SCH (10:01)
[2018-03-12] MEDS: busPIRone 5 MG TAB PO SCH ×2 (10:53→20:42)
--- NOTE | 2018-03-12 12:49 | PCMIDPN ---
Assessment/Plan: # MRSA chest wall abscess/sternal osteomyelitis/mediastinitis status post incision and drainage and excisional debridement of sternum. CT scan of back did not show evidence of diskitis or epidural abscess. --increase vancomycin 1.25gm IV q8h, last trough was 11 --recheck trough --planning transferred to [facility] for plastic surgery component of care, maybe Tuesday # Left forearm abscess: Status post incision and drainage. # History of injection drug use: Serologies for hepatitis B show immunity with negative screening for hepatitis C and HIV. Care coordinated with Dr. Bryant, Dr. Mcgraw - we met with patient together. Subjective: still with pressure over chest related to wound vac Objective: Vital Signs Temp Pulse Resp BP Pulse Ox 36.8 C 101 H 17 105/63 91 L 03/12/18 11:36 03/12/18 11:36 03/12/18 11:36 03/12/18 11:36 03/12/18 11:36 Laboratory Results 03/11/18 04:10 03/11/18 04:10 03/11/18 03/12/18 03/13/18 05:59 05:59 05:59 Intake Total 1760 250 Output Total 25 1000 Balance 1735 -750 - Physical Exam General Appearance: alert, no apparent distress Cardiac/Chest: other (chest wall without erythema, wound vac in place, mild tenderness) Neuro/Psych: alert, normal mood/affect, oriented x 3 - Line/s RUE PICC Lines: No drainage, No erythema - Time Spent With Patient Time Spent with Patient: greater than 35 minutes (care coordinate with surgery, hospitalist) Time Spent with Patient: Greater than 35 minutes spent on this patients care, greater than 50% of time spent counseling, educating, and coordinating care regarding the above mentioned plan. ICD10 Worksheet Patient Problems: Problems Problem Status Onset Abscess Acute Anemia Acute Narcotic abuse Acute Ventral hernia Acute
--- NOTE | 2018-03-12 13:58 | HOSPPROG ---
Hospitalist Progress Note Assessment/Plan: Assessment: 22 yo F p/w acute anterior chest abscess w/ osteomyelitis s/p sternal fracture c /b LUE abscess in setting of IVDU Plan: # chest wall abscess and sternal osteomyelitis: s/p surgical debridement and partial sternum removal in setting of sternal fracture, infected hematoma, and eventual osteomyelitis - team rounded w/ patient, Drs. Poole and Mariluz, patient confirmed that she is not comfortable w/ care from our plastic surg team, and she is requesting transfer to [facility] tomorrow - we counseled her that there is no guarantee that the [facility] surgical team will use general or conscious sedation for vac changes, but we can communicate to the receiving team that this is the patient's request, and her next vac change should be in the next 24-48hrs - we also counseled patient that the timeline of care at [facility] is unlikely to be different from that here at [facility], but she will have access to other plastics providers at that facility - Dr. Mcgraw assessed surgical area, reduced suction pressure of wound vac to 100 # left arm abscess: 2/2 IVDA, s/p I&D by Dr. Deleon, receiving ongoing wound care # chronic opiate and benzodiazepine use disorder and continuous dependency: with acute pain more difficult to manage given hx of chronic opiate use and tolerance - continues to be a difficult item to address given her underlying history of addiction and tolerance - cont on oxy IR/dilaudid PRN and do not permit IV Rx (unless to pre-medicate for wound care) # anxiety: chronically on xanax, but overusing ativan PRN - adjusted to klonipin bid PRN w/ dose range, avoid other PRN benzos, and started scheduled buspar 7.5 bid to be uptitrated # polysubstance abuse: hx of IVDA, states last use was 4 weeks ago - HCV/HIV neg # anemia of chronic inflammatory disease w/ iron deficient component: given IV iron x 3 days, monitor Hgb # paresthesias: possibly neuropathy in setting of drug abuse, no e/o spinal lesion on CT - cont 900mg HS Diet. Reg PPx. Low risk, ambulate Code. Full Dispo. ADD uncertain, patient unsafe to leave monitored setting w/ PICC line, requesting transfer to [facility] 03/13, likely LTAC vs. SNF thereafter. Subjective: patient distressed and it's her birthday, she is currently satisfied w/ pain mgmt strategy Objective: Vital Signs Temp Pulse Resp BP Pulse Ox 36.8 C 101 H 17 105/63 91 L 03/12/18 11:36 03/12/18 11:36 03/12/18 11:36 03/12/18 11:36 03/12/18 11:36 Laboratory Results 03/11/18 04:10 03/11/18 04:10 03/11/18 03/12/18 03/13/18 05:59 05:59 05:59 Intake Total 1760 250 Output Total 25 1000 Balance 1735 -750 PT 15.4 SEC (12.0-15.0) H 03/05/18 18:50 INR 1.20 (0.83-1.16) H 03/05/18 18:50 - Time Spent With Patient Time Spent with Patient: greater than 35 minutes Time Spent with Patient: Greater than 35 minutes spent on this patients care, greater than 50% of time spent counseling, educating, and coordinating care regarding the above mentioned plan. - Physical Exam Constitutional: chronically ill appearing, uncomfortable, No no apparent distress (mild) Neurologic: AAOx3 Psychiatric: not encephalopathic, anxious, other (intermittently tearful) ICD10 Worksheet Patient Problems: Problems Problem Status Onset Ventral hernia Acute Narcotic abuse Acute Abscess Acute Anemia Acute
[2018-03-12] MEDS: VANCOMYCIN 1.25 GM in NS 250 ML IV SCH ×2 (15:09→22:00)
[2018-03-12] MEDS: clonazePAM 0.5 MG TAB PO PRN ×2 (15:15→22:00)
[2018-03-12] MEDS: GABAPENTIN 300 MG CAP PO SCH (20:42)
[2018-03-12] MEDS: ZOLPIDEM TARTRATE 5 MG TAB PO SCH (22:00)
[2018-03-13] MEDS: HYDROmorphONE/DILAUDID 2 MG TAB PO PRN ×4 (01:56→14:39)
[2018-03-13] MEDS: oxyCODONE IR 5 MG TAB PO PRN ×4 (01:56→14:39)
[2018-03-13] MEDS: VANCOMYCIN 1.25 GM in NS 250 ML IV SCH ×2 (06:19→14:12)
[2018-03-13] MEDS: clonazePAM 0.5 MG TAB PO PRN (06:26)
[2018-03-13 06:37] LABS: PLATELET COUNT 505 10^3/uL (150-400)
[2018-03-13] MEDS: LIDOCAINE 4%/MENTHOL 1% PATCH TD SCH (09:33)
[2018-03-13] MEDS: busPIRone 5 MG TAB PO SCH (09:35)
[2018-03-13] MEDS: FERROUS SULFATE 325 MG TAB PO SCH (09:35)
[2018-03-13] MEDS: MULTIVITAMINS 1 EACH TAB PO SCH (09:35)
[2018-03-13] MEDS: SENNOSIDES/DOCUSATE SODIUM TAB PO SCH (10:39)
[2018-03-13] MEDS ORDERED: clonazePAM 1 MG TAB PO ONE (10:58)
[2018-03-13] MEDS ORDERED: FLUCONAZOLE 100 MG TAB PO ONE (11:37)
--- NOTE | 2018-03-13 12:12 | ASMTCMCOM ---
CM Note CM Note Notes: Chart reviewed. Discussed with Dr. Bryant. Patient accepted to [facility] . Her father spoke with [facility] regarding insurance/financial concerns that may be initiated by transfer. Per her father they are covered at 80 percent per their policy. Patient has been discharged, Emtala completed. University aware. Patient to be admitted to Dr. Huang Rosado at [facility]. RN has number to call report to. Records are to be sent with patient. To Corn[facility] via [facility]. CM available should other needs arise. Date Signed: 03/13/2018 12:12 PM Electronically Signed By:Neena Little RN
--- NOTE | 2018-03-13 12:55 | PDIAF ---
- Diagnosis Diagnosis: Osteomyelitis, MRSA chest wall abscess, forearm abscess Code Status: Full Code - Medication Management Discharge Medications: Medications to Continue on Transfer Zolpidem Tartrate [Ambien 10 mg] 10 mg PO HS 06/06/17 [Last Taken 03/04/18] Ferrous Sulfate [Ferrous Sulf 325 MG (*)] 325 mg PO DAILY 03/05/18 [Last Taken 02/26/18] Ibuprofen [Motrin (*)] 400 mg PO Q6HRS PRN 03/05/18 [Last Taken 03/04/18] Lidocaine [Lidoderm] 1 each TP DAILY 03/05/18 [Last Taken 03/04/18] Multivitamins [Multivitamin (*)] 1 each PO DAILY 03/05/18 [Last Taken 02/26/18] Acetaminophen [Tylenol 325mg (*)] 650 mg PO Q4HRS PRN tab 03/13/18 [Last Taken Unknown] Alteplase [Cathflo Activase 2 mg (*)] 2 mg IVP PRN PRN vial 03/13/18 [Last Taken Unknown] Gabapentin [Neurontin 300 MG (*)] 900 mg PO HS cap 03/13/18 [Last Taken Unknown ] HYDROmorphone HCL [Dilaudid 2 mg (*)] 2 - 4 mg PO Q4HRS PRN tab 03/13/18 [Last Taken Unknown] Ondansetron Odt [Zofran Odt 4 mg (*)] 4 mg PO Q4HRS PRN tab 03/13/18 [Last Taken Unknown] Polyethylene Glycol 3350 [Miralax 17 gm (*)] 17 gm PO DAILY PRN pkt 03/13/18 [ Last Taken Unknown] Sennosides/Docusate Sodium [Senokot-S] 1 - 2 tab PO BID tab 03/13/18 [Last Taken Unknown] Vancomycin [Vancomycin (*)] 1.25 gm IV Q8H vial 03/13/18 [Last Taken Unknown] busPIRone [Buspar (*)] 7.5 mg PO BID tab 03/13/18 [Last Taken Unknown] clonazePAM [Klonopin (*)] 0.5 - 1 mg PO BID PRN tab 03/13/18 [Last Taken Unknown] oxyCODONE IR [Oxycodone Ir (*)] 5 - 10 mg PO Q4HRS PRN tab 03/13/18 [Last Taken Unknown] Intermediate Antibiotics: Vancomycin 1.25mg IV q8hr Brand Protection Manager Antibiotic Stop Date: 04/16/18 Discharge Medications: Refer to the Discharge Home Medication list for PRN reason. PICC Care - Routine: Yes - Orders Services needed: Registered Nurse, Certified Community Assistant, Master Electronic Data Processing Auditor Isolation Type: Contact Isolation Oxygen: NA Diet Recommendation: no restrictions on diet - Follow Up Care Current Providers and Referrals: Patient,NotPresent [Unknown] - As per Instructions Tamie Poole MD [Medical Doctor] - (follow-up after discharge from [facility])
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
[2018-03-13] MEDS ORDERED: VANCOMYCIN 1 GM in NS 250 ML IV SCH (13:30)
[2018-03-13 15:13] VITALS: BP 102/56
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
== END 2018-03-13 16:14 | disposition short-term general hospital (02) | DRG 500 ==
LOC: EDUNIT# → INTOOBSV 20:55 → EEVIPCON 22:08 → OBSVTOIN 22:08 → F2N 23:36 → F1N 03-08 14:54
PROVIDERS: ADMIT Internal Medicine; ATTEND Internal Medicine
PROC: 0H9EXZZ Drainage of Left Lower Arm Skin, External Approach (ICD-10-PCS; principal; 2018-03-05 19:45)
PROC: 0JD60ZZ Extraction of Chest Subcutaneous Tissue and Fascia, Open Approach (ICD-10-PCS; principal; 2018-03-05 19:45)
PROC: 0H95XZX Drainage of Chest Skin, External Approach, Diagnostic (ICD-10-PCS; principal; 2018-03-05 19:45)
PROC: 0PB00ZZ Excision of Sternum, Open Approach (ICD-10-PCS; principal; 2018-03-05 19:45)
PROC: 02HV33Z Insertion of Infusion Device into Superior Vena Cava, Percutaneous Approach (ICD-10-PCS; 2018-03-05 19:45)
PROC: 0PB00ZZ Excision of Sternum, Open Approach (ICD-10-PCS; 2018-03-06)
PROC: 3E04329 Introduction of Other Anti-infective into Central Vein, Percutaneous Approach (ICD-10-PCS; 2018-03-06)
PROC: 0JD60ZZ Extraction of Chest Subcutaneous Tissue and Fascia, Open Approach (ICD-10-PCS; 2018-03-06)
DX: M86.8X8 Other osteomyelitis, other site (principal); B95.62 Methicillin resistant Staphylococcus aureus infection as the cause of diseases classified elsewhere; L03.313 Cellulitis of chest wall; L02.414 Cutaneous abscess of left upper limb; J98.51 Mediastinitis; T79.8XXA Other early complications of trauma, initial encounter; R94.5 Abnormal results of liver function studies; R20.2 Paresthesia of skin; D63.8 Anemia in other chronic diseases classified elsewhere; F13.20 Sedative, hypnotic or anxiolytic dependence, uncomplicated; F19.10 Other psychoactive substance abuse, uncomplicated; G89.29 Other chronic pain; J45.909 Unspecified asthma, uncomplicated; Q79.6 Ehlers-Danlos syndromes; F41.9 Anxiety disorder, unspecified; G47.00 Insomnia, unspecified; G43.909 Migraine, unspecified, not intractable, without status migrainosus; Z16.11 Resistance to penicillins; S22.20XD Unspecified fracture of sternum, subsequent encounter for fracture with routine healing; V89.2XXD Person injured in unspecified motor-vehicle accident, traffic, subsequent encounter
CPT/HCPCS: 80305; 86704-90; 96374; C1751; G0472; G0480; J0295; J1100; J1170; J2001; J2250; J2405; J2704; J2916; J2997; J3010; J3370; Q9967

== ENCOUNTER 2018-04-12 15:58 | Emergency (ER) | payer OTHER ==
[2018-04-12 16:07] VITALS: BP 113/77
--- NOTE | 2018-04-12 16:30 | EDPHY ---
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 She was discharged from [facility] 3 days ago. She was scheduled to have an appointment today with the [facility], showed up the appointment and unfortunately the provider there was not present. Given her history of chronic opiate dependence she was not sure what to do. She has rescheduled her point with [facility] but is experiencing acute opiate withdrawal symptoms. PRIMARY CARE PROVIDER: REVIEW OF SYSTEMS: A ten point review of systems was performed and is negative with the exception of the items mentioned in the HPI PHYSICAL EXAM (Prior to examination, patient consented to physical exam, hands were washed and my usual and customary physical exam procedures followed) 1) GENERAL: Well-developed, well-nourished, alert and oriented. Appears anxious 2) HEAD: Normocephalic 3) HEENT: sclera anicteric 4) LUNGS: Breathing comfortably. 5) SKIN: Piloerection noted. Left anterior so skin graft donor site granulating appropriately with no signs of infection. Chest wall examination ( with father and nurse Ruchi Sherman at bedside) reveals epithelializing tissue with no signs of infection, no fetid odor, no discharge (Sindhu,Sahara Linda) Constitutional: Initial Vital Signs Temperature (C) 36.7 C 04/12/18 16:04 Heart Rate 81 04/12/18 16:04 Respiratory Rate 18 04/12/18 16:04 Blood Pressure 113/77 04/12/18 16:04 O2 Sat (%) 96 04/12/18 16:04 O2 Delivery Mode Room Air Allergies/Adverse Reactions: No Known Allergies Allergy (Verified 04/12/18 16:01) Home Medications: Medication Instructions Recorded Ibuprofen [Motrin (*)] 400 mg PO Q6HRS PRN 03/05/18 Lidocaine [Lidoderm] 1 each TP DAILY 03/05/18 Gabapentin [Neurontin 300 MG (*)] 900 mg PO HS cap 03/13/18 busPIRone [Buspar (*)] 7.5 mg PO BID tab 03/13/18 clonazePAM [Klonopin (*)] 0.5 - 1 mg PO BID PRN tab 03/13/18 oxyCODONE IR [Oxycodone Ir (*)] 15 mg PO Q6 #15 tab 04/12/18 MDM/Departure - [facility] ED Course/Re-evaluation: I reviewed this patient's medical records. She has a history of opiate dependence and unfortunately , although she had an appointment at the [facility], the provider was not in clinic today. I have empathized with her situation. She has a normal regimen of morphine 30 mg every 4 hr. Informed her that I am unable to provide a prescription for this high dosage. However due to concerns over opiate withdrawal, I am going to prescribe her smaller dose oxycodone to service of bridge until she can see a production painter. She has an appointment tomorrow at the [facility] that I recommend she keep. Regarding her wounds these are epithelializing appropriately with no signs of infection to either her left anterior thigh graft graft donor site or her sternum. She feels comfortable being discharged. All questions and concerns addressed by myself. Care of patient under supervision of secondary supervising physician Dr Dykes . (Sahara Manley) - Depart Disposition: Home, Routine, Self-Care Clinical Impression: Sternal abscess history Condition: Good Instructions: Abscess (ED) Additional Instructions: Contact the [facility] to reschedule an appointment as soon as possible Prescriptions: oxyCODONE IR [Oxycodone Ir (*)] 15 mg PO Q6 #15 tab Referrals: Miguel Chavez MD [Primary Care Provider] - 1-2 days without fail Keep, your appointment at the [facility] tomorrow [Other] - As per Instructions
== END 2018-04-12 17:12 | disposition home or self-care (01) ==
DX: Z76.0 Encounter for issue of repeat prescription (principal); Z86.19 Personal history of other infectious and parasitic diseases

== ENCOUNTER 2018-06-03 11:40 | Emergency (ER) | payer OTHER ==
--- NOTE | 2018-06-03 12:44 | EDPHY ---
H & P Time Seen by Provider: 06/03/18 12:16 HPI/ROS: CHIEF COMPLAINT:"can you take the stitches out" HISTORY OF PRESENT ILLNESS: 23-year-old female with medical history significant for polysubstance abuse, MRSA abscess to the chest wall development of MRSA osteomyelitis to the sternum, followed primarily at [facility] where she has had multiple graft interventions to this area. 1 month ago she had intervention to the cephalad portion of the sternum, unclear specifically what she had done as she does not recall this. States that she had sutures placed in this area and they were never removed and she has been unable to get in contact with her surgeon PHYSICAL EXAM (Prior to examination, patient consented to physical exam, hands were washed and my usual and customary physical exam procedures followed) 1) GENERAL: Well-developed, well-nourished, alert and oriented. Appears to be in no acute distress. 2) HEAD: Normocephalic 3) HEENT: sclera anicteric 4) LUNGS: Breathing comfortably. 5) SKIN: Transverse laceration over cephalad portion of sternum with no visible sutures, it is tender, it is not erythematous or foul smelling. There is no drainage. There is no crepitus. Granulating wound she has chest wall. Smoking Status: Never smoked Constitutional: Initial Vital Signs Temperature (C) 36.6 C 06/03/18 11:50 Heart Rate 85 06/03/18 11:50 Respiratory Rate 18 06/03/18 11:50 Blood Pressure 101/73 06/03/18 11:50 O2 Sat (%) 98 06/03/18 11:50 O2 Delivery Mode Room Air Allergies/Adverse Reactions: No Known Allergies Allergy (Verified 06/03/18 11:49) Home Medications: Medication Instructions Recorded busPIRone [Buspar (*)] 7.5 mg PO BID tab 03/13/18 clonazePAM [Klonopin (*)] 0.5 - 1 mg PO BID PRN tab 03/13/18 oxyCODONE IR [Oxycodone Ir (*)] 15 mg PO Q6 #15 tab 04/12/18 Zolpidem Tartrate [Ambien 5MG (*)] 5 mg PO HS 06/03/18 [facility] Course/Re-evaluation: 12:42 p.m.: I have reviewed this patient's old medical records. Today is Tuesday. The transverse laceration on the patient's sternum had sutures placed 4-6 weeks ago. I do not visualize or palpate any sutures. Patient and I discussed what these may be absorbable sutures and she is adamant they are not. She request I reopen the wound which I do not feel comfortable doing given the complexity of her medical history. Shows no signs of infection or abscess. I do not think that ultrasound, CT imaging or incision and drainage are indicated. I have empathized with her ongoing medical course and current complaints. I recommend she contact her surgeon at [facility] on Tuesday or she may go to the [facility] on Tuesday where she has been seen intermittently as well. I saw this patient independently based on established practice protocols. Care of patient under supervision of primary Supervising physician Dr Wright . - Depart Disposition: Home, Routine, Self-Care Clinical Impression: Suture check Condition: Good Instructions: Care For Your Stitches (ED) Additional Instructions: Contact your surgeon on Tuesday in [facility] or go to the [facility]. If you develop fevers chills chest pain or any other symptoms come to the ER for re-evaluation immediately Referrals: Contact, your [facility] surgeon on Tue [Other] - As per Instructions
[2018-06-03 12:47] VITALS: BP 112/75
== END 2018-06-03 13:00 | disposition home or self-care (01) ==
DX: Z48.01 Encounter for change or removal of surgical wound dressing (principal)

== ENCOUNTER 2018-06-19 09:23 | Inpatient (IN) | payer OTHER ==
[2018-06-19] MEDS ORDERED: LORazepam 2 MG/ML INJ IVP ONE ×2 (09:35→14:54)
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
[2018-06-19 10:00] LABS: PLATELET COUNT 358 10^3/uL (150-400)
[2018-06-19] MEDS ORDERED: LORazepam 1 MG TAB PO ONE ×2 (11:53→14:34)
[2018-06-19] MEDS ORDERED: OLANZapine DISINTEGR 5 MG TAB PO ONE (14:03)
[2018-06-19] MEDS ORDERED: ONDANSETRON 4 MG/2 ML VIAL IVP PRN (14:52)
[2018-06-19] MEDS ORDERED: ACETAMINOPHEN 325 MG TAB PO PRN (14:52)
[2018-06-19] MEDS ORDERED: ONDANSETRON DISINTEGRATING 4 MG TAB PO PRN (14:52)
[2018-06-19] MEDS ORDERED: HALOPERIDOL LACT 5 MG/ML INJ IVP ONE (14:54)
--- NOTE | 2018-06-19 14:54 | ASMTLCPROG ---
Notes Note: Notes: Consulted with Dr. Cortez who stated concerns that pt may be going through benzodiazepine withdrawal. Invited Dr. Dykes to consult with Dr. Cortez directly. Date Signed: 06/19/2018 02:54 PM Electronically Signed By:Michelle Corrales
[2018-06-19] MEDS ORDERED: LORazepam 2 MG/ML INJ IVP PRN (14:55)
[2018-06-19] MEDS ORDERED: HALOPERIDOL LACT 5 MG/ML INJ IVP PRN (16:00)
[2018-06-19] MEDS ORDERED: DIAZEPAM 5 MG/ML 1 ML SYR ONE (16:05)
[2018-06-19] MEDS: DIAZEPAM 5 MG/ML 1 ML SYR IVP PRN (16:19)
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
--- NOTE | 2018-06-19 17:20 | CPEKG ---
Heart Rate: 88 RR Interval: 682 P-R Interval: 148 QRSD Interval: 86 QT Interval: 380 QTC Interval: 460 P [place]: -3 QRS [place]: 99 T Wave [place]: 65 EKG Severity - OTHERWISE NORMAL ECG - EKG Impression: SINUS RHYTHM EKG Impression: BORDERLINE RIGHT AXIS DEVIATION Electronically Signed By: Aliya Gardner 21-Jun-2018 20:50:03
[2018-06-20] MEDS: DIAZEPAM 5 MG/ML 1 ML SYR IVP PRN (01:19)
[2018-06-20] MEDS ORDERED: QUEtiapine FUMARATE 100 MG TAB PO ONE (03:12)
[2018-06-20] MEDS: DEXMEDETOMIDINE IN 0.9 % NACL 50 ML IV SCH ×2 (05:10→09:48)
--- NOTE | 2018-06-20 05:43 | PDMN ---
Medical Necessity Medical necessity: Pt meets INPT criteria per MD and [facility] M-590 Delirium ( agitation, tachycardia, acute toxic encephalopathy, suspected benzodiazepine withdrawal, requiring IV Precedex; hx MRSA, chronic opioid/benzodiazapine dependency).
[2018-06-20] MEDS: DIAZEPAM 5 MG TAB PO PRN ×2 (08:07→14:26)
--- NOTE | 2018-06-20 08:20 | ASMTLACE ---
[place] Acuity / Level of Answers: Yes Care: Did the patient have an inpatient admission? Comorbidities - select Answers: Opioid dependence all that apply / Chronic pain # of Emergency department Answers: 5-8 visits in the last 6 months Social determinants Answers: History of substance abuse (ETOH, street drugs, prescription drugs, etc.) Mental health diagnosis (anxiety, depression, pers onality disorders, etc.) Score: 17 Date Signed: 06/20/2018 08:20 AM Electronically Signed By:Marge Castro
[2018-06-20] MEDS ORDERED: ENOXAPARIN 40 MG/0.4 ML SYR SC SCH (09:00)
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
--- NOTE | 2018-06-20 12:23 | ASMTCMCOM ---
CM Note CM Note Notes: Met with patient who was sleeping and not interested in looking at this CM while asked questions. Patient reports that her father is coming to [place] this week. She wants to be discharged and go home to her bed. She has a cat at home. Not sure if she lives with others. She has 2 more courses to complete at . Not interested in therapy or resources. May need a low dose benzo for withdrawal. Date Signed: 06/20/2018 12:22 PM Electronically Signed By:Nisha Pereyra LCSW
[2018-06-20 13:26] VITALS: BP 106/60
--- NOTE | 2018-06-20 14:01 | PDINTPN ---
Drupal Architect Progress Note Assessment/Plan: Assessment/ plan: Resolving pneumonia. Secondary to aspiration. On clindamycin. Afebrile with resolving leukocytosis. Hypoxemia is resolving as well. Okay to transfer to inpatient [facility] today. Continue clinic the for 7-10 days total of antibiotics. Will continue albuterol by metered-dose inhaler to encourage sputum elimination. She is to use IS and her pickle valve. Hyponatremia: Resolving. Suicide attempt. Depression. For inpatient evaluation. Medically cleared as of this morning. Can transfer to [address] All the above was discussed with the patient and her . 25 min of critical care time was spent directly with the patient. If pulmonary issues persist following her inpatient [facility] stay she can call the office and will be brought back in for examination and a new x-ray as indicated. Subjective: Feels better. Up walking in the halls. Has some cough with some thin non colored mucus. Denies significant shortness of breath. Objective: Vital Signs Temp Pulse Resp BP Pulse Ox 37.2 C 82 14 106/60 93 06/19/18 17:48 06/20/18 13:24 06/20/18 13:24 06/20/18 13:24 06/20/18 13:24 06/19/18 06/20/18 06/21/18 05:59 05:59 05:59 Intake Total 510 Balance 510 CXR: Significantly improved. Right upper lobe infiltrate resolving. Laboratory Tests 06/19/18 06/19/18 09:50 09:50 WBC 9.87 H Hgb 12.6 Hct 39.3 Plt Count 358 Neut % (Auto) 84.0 H Lymph % (Auto) 10.2 L Sodium 140 Potassium 3.9 Chloride 103 Carbon Dioxide 22 Anion Gap 15 BUN 21 Creatinine 0.8 Glucose 72 Calcium 10.2 Physical Exam - Physical Exam General Appearance: alert, no apparent distress EENT: PERRL/EOMI, other (95% on room air) Neck: normal inspection (No JVD) Respiratory: rales (Posteriorly on the right, no consolidation) Cardiac/Chest: regular rate, rhythm Abdomen: normal bowel sounds, non-tender, soft Skin: normal color, warm/dry Lymphatic: no adenopathy Extremities: No pedal edema Neuro/Psych: no motor/sensory deficits, No cognition abnormalities ICD10 Worksheet Patient Problems: Problems Problem Status Onset Ventral hernia Acute Narcotic abuse Acute Abscess Acute Anemia Acute Psychosis Acute
--- NOTE | 2018-06-20 14:17 | HOSPPROG ---
Hospitalist Progress Note Assessment/Plan: 23 yo f w [possible benzo withdrawal no seizures had been on klonopin withdrawal home today w no scripts, she is OK w this Subjective: alert. anxious Objective: Vital Signs Temp Pulse Resp BP Pulse Ox 37.2 C 82 14 106/60 93 06/19/18 17:48 06/20/18 13:24 06/20/18 13:24 06/20/18 13:24 06/20/18 13:24 06/19/18 06/20/18 06/21/18 05:59 05:59 05:59 Intake Total 510 Balance 510 - Physical Exam Constitutional: no apparent distress, appears nourished Eyes: PERRL, anicteric sclera Ears, Nose, Mouth, Throat: moist mucous membranes, hearing normal Cardiovascular: regular rate and rhythym, no murmur, rub, or gallop Respiratory: no respiratory distress, no rales or rhonchi Gastrointestinal: normoactive bowel sounds, soft, non-tender abdomen Genitourinary: No silva in urethra Skin: warm Musculoskeletal: full muscle strength Neurologic: AAOx3 Psychiatric: interacting appropriately, No not anxious ICD10 Worksheet Patient Problems: Problems Problem Status Onset Psychosis Acute Abscess Acute Anemia Acute Narcotic abuse Acute Ventral hernia Acute
--- NOTE | 2018-06-20 14:34 | GDS ---
[f rep st] DISCHARGE SUMMARY DISCHARGE DIAGNOSES: 1. 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 2. Anxiety disorder. 3. Benzodiazepine dependence. HISTORY AND HOSPITAL COURSE: The patient presented with anxiety and altered behavior. She was seen by Psychiatry, who felt it was not a psychotic break. She had recently stopped taking benzodiazepine s, but notably she was discharged with a month-long taper of clonazepam. The patient was intermitten tly tachycardic, but in general did not have a seizure and was otherwise alert, if not exceedingly an xious. She is discharged home today with no prescriptions. /[id number]/MODL
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
--- NOTE | 2018-06-20 15:09 | ASMTDCNOTE ---
Case Management Discharge Discharge Order Complete? Answers: Yes Patient to Obtain Answers: Independently Medications Transportation Arranged Answers: Family/Friends Transport will Pick (Date 06/20/2018 03:00 PM & Time) Discharge Comments Notes: Pt has been discharged. RN reported that pt was arranging transport home with friends. No CM needs identified at this time. Date Signed: 06/20/2018 03:08 PM Electronically Signed By:Tila Perez
== END 2018-06-20 14:31 | disposition home or self-care (01) | DRG 897 ==
LOC: EDBD → EDUNIT# → EEVIPCON 14:52 → OBSVTOIN 14:52 → F2N 16:15
PROVIDERS: ADMIT Internal Medicine; ATTEND Internal Medicine
PROC: HZ2ZZZZ Detoxification Services for Substance Abuse Treatment (ICD-10-PCS; principal; 2018-06-19)
DX: F13.231 Sedative, hypnotic or anxiolytic dependence with withdrawal delirium (principal); F41.9 Anxiety disorder, unspecified; F11.11 Opioid abuse, in remission; Z86.14 Personal history of Methicillin resistant Staphylococcus aureus infection; K21.9 Gastro-esophageal reflux disease without esophagitis
CPT/HCPCS: 80305; 96374; G0480; J1630; J1650; J2060; J3360

== ENCOUNTER 2018-10-26 15:34 | Inpatient (IN) | payer OTHER ==
--- NOTE | 2018-10-26 16:06 | EDPHY ---
H & P Stated Complaint: General malaise/cough Time Seen by Provider: 10/26/18 16:05 HPI/ROS: CHIEF COMPLAINT: Dyspnea, cough HISTORY OF PRESENT ILLNESS: The patient presents the ED with complaints of severe dyspnea and cough. The patient was diagnosed with an upper respiratory infection by her primary care provider several days ago. She reportedly had a negative flu test at that point time. Today her symptoms worsened and reportedly she had a heart rate in the 130s prompting her referral to the emergency department today. The patient does report a slightly dry productive cough. She denies asymmetric calf pain or swelling. The patient has a very complicated past surgical history involving a sternal osteomyelitis and MRSA abscess requiring extensive debridement and skin grafting. The patient denies any vomiting or diarrhea. She denies any additional acute medical complaints. The patient does have a history of IV drug use. She reports that she has been clean for the past 2 months. REVIEW OF SYSTEMS: A comprehensive 10 point review of systems is otherwise negative aside from elements mentioned in the history of present illness. Source: Patient Exam Limitations: No limitations - Personal History LMP (Females 10-55): Unknown Current Tetanus/Diphtheria Vaccine: Yes - Medical/Surgical History Hx Asthma: Yes Hx Chronic Respiratory Disease: No Hx Diabetes: No Hx Cardiac Disease: No Hx Renal Disease: No Hx Cirrhosis: No Hx Alcoholism: No Hx HIV/AIDS: No Hx Splenectomy or Spleen Trauma: No Other PMH: Exercise induced asthma; ivda, chronic pain, opiate abuse. Surgical - Tonsillectomy. possible abd hernia from ?? strnal fx/mrsa - Social History Smoking Status: Never smoked - Physical Exam Exam: General Appearance: Alert, no distress Eyes: Pupils equal and round no pallor or injection ENT, Mouth: Mucous membranes moist Respiratory: Tachypneic, surgical incision clean dry and intact, 2/6 systolic ejection murmur Cardiovascular: Tachycardic Gastrointestinal: Abdomen is soft and nontender, no masses, bowel sounds normal Neurological: 5/5 strength all 4 extremities Skin: Warm and dry, no rashes, evidence of stigmata of prior IVDU Musculoskeletal: Neck is supple nontender Extremities: symmetrical, full range of motion, specifically no evidence of DVT Constitutional: Initial Vital Signs Temperature (C) 37.2 C 10/26/18 15:38 Heart Rate 152 H 10/26/18 15:38 Respiratory Rate 18 10/26/18 15:38 Blood Pressure 108/74 10/26/18 15:38 O2 Sat (%) 88 L 10/26/18 15:38 O2 Delivery Mode Nasal Cannula O2 (L/minute) 4 Allergies/Adverse Reactions: No Known Allergies Allergy (Verified 10/26/18 15:42) Home Medications: Medication Instructions Recorded ALPRAZolam [Xanax 1 MG (*)] 1 mg PO TID 06/19/18 Medical Decision Making - Diagnostics Imaging Results: Imaging Impressions Chest X-Ray 10/26/18 16:12 Impression: 1. Bilateral lower lobe pneumonia versus pulmonary contusions, right greater than left. 2. No pneumothorax. Chest/Thorax CTA 10/26/18 16:45 Impression: 1. No evidence of pulmonary embolus using CT protocol of the central pulmonary arterial contrast bolus is suboptimal. It is difficult to rule out peripheral subsegmental emboli. 2. Bilateral rounded areas of consolidation suspicious for septic emboli. 3. Small right pleural effusion. Findings discussed with Juan F Wright M.D. at 18:05 hour, 10/26/2018. ED Course/Re-evaluation: The patient presents to the ED for evaluation of hypoxemia, tachycardia and dyspnea. The patient has a complicated past medical history including MRSA osteomyelitis of the sternum and a remote history of IV drug use. The patient was noted to be tachycardic and hypoxemic. She was given supplemental oxygen. Patient was taken for a chest x-ray which demonstrated bilateral basilar infiltrates. This was followed up with a chest CT scan which demonstrated no evidence of an obvious pulmonary emboli but did demonstrate a pattern which suggested possible septic emboli. The patient was noted to have bibasilar consolidations as well. Blood cultures x2 have been obtained. The patient will be started on IV Invanz and vancomycin. Consultation was made with Dr. Huizar from the hospitalist service for admission for endocarditis rule out. The patient does have sepsis with leukocytosis and tachycardia + infection. There is no evidence of severe sepsis. Initial lactic acid is reassuring. Differential Diagnosis: Differential diagnosis considered includes sepsis, severe sepsis, septic shock, pneumonia, endocarditis, pulmonary embolism Critical Care Time: Critical care time exclusive of procedures and exclusive of the PA's time was 35 minutes, performed by myself, Juan F Wright MD. The patient presents to the ED with marked tachycardia, hypoxemia and severe dyspnea. The patient may have pneumonia and septic emboli and possibly endocarditis from IV drug use. The patient was started on broad-spectrum antibiotics and will be admitted to the hospital in a setting of her sepsis and possible endocarditis. - Data Points Laboratory Results: Laboratory Results 10/26/18 16:20 10/26/18 16:20 10/26/18 10/26/18 10/26/18 18:15 16:44 16:20 WBC RBC Hgb POC Hgb 10.2 gm/dL L gm/dL (12.6-16.3) Hct POC Hct 30 % L % (38-47) MCV MCH MCHC RDW Plt Count MPV Neut % (Auto) Lymph % (Auto) Dougherty % (Auto) Eos % (Auto) Baso % (Auto) Nucleat RBC Rel Count Absolute Neuts (auto) Absolute Lymphs (auto) Absolute Monos (auto) Absolute Eos (auto) Absolute Basos (auto) Absolute Nucleated RBC Immature Gran % Seg Neutrophils % Band Neutrophils % Lymphocytes % Monocytes % Eosinophils % Basophils % Metamyelocytes % Myelocytes % Promyelocytes % Blast Cells % Immature Gran # Absolute Seg Neuts Absolute Band Neuts Absolute Lymphocytes Absolute Monocytes Absolute Eosinophils Absolute Basophils Absolute Metamyelocyte Absolute Myelocytes Absolute Promyelocytes Absolute Plasma Cells Nucleated RBCs Absolute Blast Cells Plasma Cells % Platelet Estimate Hypochromasia Microcytic Cells Target Cells Oval Macrocytes Elliptocytes Schistocytes VBG Lactic Acid 1.3 mmol/L mmol/L (0.7-2.1) POC Sodium 139 mEq/L mEq/L (135-145) Sodium POC Potassium 3.4 mEq/L mEq/L (3.3-5.0) Potassium POC Chloride 102 mEq/L mEq/L (97-110) Chloride Carbon Dioxide Anion Gap POC BUN 9 mg/dL mg/dL (7-23) BUN Creatinine POC Creatinine 0.6 mg/dL mg/dL (0.6-1.0) Estimated GFR Glucose POC Glucose 107 mg/dL H mg/dL (70-100) Calcium Beta HCG, Qual NEGATIVE 10/26/18 10/26/18 16:20 16:20 WBC 20.41 10^3/uL H 10^3/uL (3.80-9.50) RBC 3.41 10^6/uL L 10^6/uL (4.18-5.33) Hgb 8.5 g/dL L g/dL (12.6-16.3) POC Hgb Hct 24.8 % L % (38.0-47.0) POC Hct MCV 72.7 fL L fL (81.5-99.8) MCH 24.9 pg L pg (27.9-34.1) MCHC 34.3 g/dL g/dL (32.4-36.7) RDW 17.1 % H % (11.5-15.2) Plt Count 173 10^3/uL 10^3/uL (150-400) MPV 10.6 fL fL (8.7-11.7) Neut % (Auto) Not Reported Lymph % (Auto) Not Reported Dougherty % (Auto) Not Reported Eos % (Auto) Not Reported Baso % (Auto) Not Reported Nucleat RBC Rel Count Not Reported Absolute Neuts (auto) Not Reported Absolute Lymphs (auto) Not Reported Absolute Monos (auto) Not Reported Absolute Eos (auto) Not Reported Absolute Basos (auto) Not Reported Absolute Nucleated RBC Not Reported Immature Gran % Not Reported Seg Neutrophils % 73.0 % % Band Neutrophils % 18.0 % % Lymphocytes % 6.0 % % Monocytes % 1.0 % % Eosinophils % 2.0 % % Basophils % 0.0 % % Metamyelocytes % 0.0 % % Myelocytes % 0.0 % % Promyelocytes % 0.0 % % Blast Cells % 0.0 % % Immature Gran # Not Reported Absolute Seg Neuts 14.90 10^3/uL H 10^3/uL (1.70-6.50) Absolute Band Neuts 3.67 10^3/uL H 10^3/uL (0.00-0.70) Absolute Lymphocytes 1.22 10^3/uL 10^3/uL (1.00-3.00) Absolute Monocytes 0.20 10^3/uL L 10^3/uL (0.30-0.80) Absolute Eosinophils 0.41 10^3/uL H 10^3/uL (0.03-0.40) Absolute Basophils 0.00 10^3/uL L 10^3/uL (0.02-0.10) Absolute Metamyelocyte 0.00 10^3/mL 10^3/mL (0.00-0.00) Absolute Myelocytes 0.00 10^3/mL 10^3/mL (0.00-0.00) Absolute Promyelocytes 0.00 10^3/uL 10^3/uL (0.00-0.00) Absolute Plasma Cells 0.00 10^3/uL 10^3/uL (0.00-0.00) Nucleated RBCs 0 /100 WBC /100 WBC (0-0) Absolute Blast Cells 0.00 10^3/uL 10^3/uL (0.00-0.00) Plasma Cells % 0.0 % % Platelet Estimate ADEQUATE (ADEQ) Hypochromasia 1+ H Microcytic Cells 2+ H Target Cells 1+ H Oval Macrocytes 1+ H Elliptocytes 1+ H Schistocytes 1+ H VBG Lactic Acid POC Sodium Sodium 137 mEq/L mEq/L (135-145) POC Potassium Potassium 3.4 mEq/L mEq/L (3.3-5.0) POC Chloride Chloride 102 mEq/L mEq/L (97-110) Carbon Dioxide 23 mEq/l mEq/l (22-31) Anion Gap 12 mEq/L mEq/L (6-14) POC BUN BUN 11 mg/dL mg/dL (7-23) Creatinine 0.7 mg/dL mg/dL (0.6-1.0) POC Creatinine Estimated GFR > 60 Glucose 106 mg/dL H mg/dL (70-100) POC Glucose Calcium 7.9 mg/dL L mg/dL (8.5-10.4) Beta HCG, Qual Medications Given: Vancomycin/Sodium Chloride (Vancomycin 1 Gm (Premix)) 250 mls @ 250 mls/hr IV EDNOW ONE PRN Reason: Protocol Stop: 10/26/18 19:10 Last Admin: 10/26/18 18:32 Dose: 250 mls Discontinued Medications Sodium Chloride (Ns) 1,000 mls @ 0 mls/hr IV EDNOW ONE; Wide Open PRN Reason: Protocol Stop: 10/26/18 18:04 Last Admin: 10/26/18 18:13 Dose: 1,000 mls Morphine Sulfate (Morphine) 4 mg IVP EDNOW ONE Stop: 10/26/18 18:05 Last Admin: 10/26/18 18:13 Dose: 4 mg Point of Care Test Results: Chemistry 10/26/18 16:44 POC Sodium 139 mEq/L mEq/L (135-145) POC Potassium 3.4 mEq/L mEq/L (3.3-5.0) POC Chloride 102 mEq/L mEq/L (97-110) POC BUN 9 mg/dL mg/dL (7-23) POC Creatinine 0.6 mg/dL mg/dL (0.6-1.0) POC Glucose 107 mg/dL H mg/dL (70-100) ISTAT H&H 10/26/18 16:44 POC Hgb 10.2 gm/dL L gm/dL (12.6-16.3) POC Hct 30 % L % (38-47) Departure - Departure Disposition: [facility] Inpatient Acute Clinical Impression: Sepsis, Tachycardia, Pneumonia, IV drug user Condition: Fair Referrals: Miguel Chavez MD [Primary Care Provider] - As per Instructions
[2018-10-26 16:41] LABS: PLATELET COUNT 173 10^3/uL (150-400)
[2018-10-26] MEDS ORDERED: IOPAMIDOL (ISOVUE 370) 100 ML BTL IV ONE (17:08)
[2018-10-26] MEDS ORDERED: NS 1,000 ML IV ONE (18:03)
[2018-10-26] MEDS ORDERED: ERTAPENEM 1 GM in NS 100 ML IV ONE (18:11)
[2018-10-26] MEDS ORDERED: VANCOMYCIN HCL/NORMAL SALINE 250 ML IV ONE (18:11)
[2018-10-26] MEDS ORDERED: LORazepam 0.5 MG TAB PO PRN (19:51)
[2018-10-26] MEDS ORDERED: ONDANSETRON DISINTEGRATING 4 MG TAB PO PRN (19:51)
[2018-10-26] MEDS ORDERED: ADDERALL 20 MG TAB PO PRN (19:54)
[2018-10-26] MEDS: ACETAMINOPHEN 325 MG TAB PO PRN (20:17)
[2018-10-26] MEDS: oxyCODONE IR 5 MG TAB PO PRN (20:18)
[2018-10-26] MEDS: NS 1,000 ML IV SCH (20:20)
--- NOTE | 2018-10-26 20:39 | CPEKG ---
Test Reason : OPEN Blood Pressure : / mmHG Vent. Rate : 136 BPM Atrial Rate : 138 BPM P-R Int : 131 ms QRS Dur : 095 ms QT Int : 297 ms P-R-T Axes : 023 135 010 degrees QTc Int : 447 ms Sinus tachycardia Atrial premature complex Left posterior fascicular block Confirmed by Juan F Wright ([id number]) on 10/26/2018 8:38:34 PM Referred By: Confirmed By:Juan F Wright
[2018-10-26] MEDS: QUEtiapine FUMARATE 50 MG TAB PO SCH (21:46)
[2018-10-26] MEDS: ZOLPIDEM TARTRATE 5 MG TAB PO SCH (21:46)
[2018-10-26] MEDS: clonazePAM 1 MG TAB PO PRN (21:50)
--- NOTE | 2018-10-26 23:44 | PDGENHP ---
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 She thinks she had fevers but doesn't have a thermometer. She saw her PCP 2 days ago who tested her for the flu which was negative. She returned to PCP office today where her HR was in the 130s so she was referred to the ED. She does report having an abscess on her left forearm recently that she popped on her own. Her arm has been red and swollen. She denies using IVDU since her hospitalization in February of this year for sternal osteomyelitis. She denies ingesting heroin in any other form recently as well. In the ED, she was noted to tachycardic, mildly hypoxic with elevated WBC count. A CTA of her chest was performed which was negative for PE but showed bilateral rounded consolidations, some with cavitations, consistent with septic emboli. She was given IV vancomycin. Case discussed with ED physician Siddharth Wright and records from 02/2018 hospitalization were reviewed. History Information - Allergies/Home Medication List Allergies/Adverse Reactions: No Known Allergies Allergy (Verified 10/26/18 15:42) Home Medications: Amphet Asp and D/Amphet [Adderall 20 mg (*)] 20 mg PO DAILY PRN 10/26/18 [Last Taken Unknown] QUEtiapine FUMARATE [Seroquel 50 mg (*)] 50 mg PO HS 10/26/18 [Last Taken Unknown] Sumatriptan Succinate [Imitrex] 100 mg PO DAILY PRN 10/26/18 [Last Taken Unknown ] Zolpidem Tartrate [Ambien 5MG (*)] 5 mg PO HS 10/26/18 [Last Taken Unknown] clonazePAM [klonoPIN (*)] 1 mg PO BID PRN 10/26/18 [Last Taken Unknown] oxyCODONE IR [Oxycodone Ir (*)] 10 mg PO HS 10/26/18 [Last Taken Unknown] I have personally reviewed and updated: family history, medical history, social history, surgical history - Past Medical History Additional medical history: MRSA chest wall abscess/sternal osteomyelitis, IVDU , opiate and benzodiazepine dependence, anxiety, left upper extremity abscess, anemia of chronic inflammation - Surgical History Additional surgical history: Ventral hernia repair, sternal wound I&D with surgical removal of portion of sternum and skin flap - Family History Positive for: non-pertinent - Social History Smoking Status: Never smoked Alcohol Use: None Drug Use: Other (denies using IV drugs since 02/2018, previously using heroin) Review of Systems Review of Systems: ROS: 10pt was reviewed & negative except for what was stated in HPI & below Physical Exam Physical Exam: Temp Pulse Resp BP Pulse Ox 38.1 C 124 H 22 H 122/64 H 90 L 10/26/18 20:00 10/26/18 20:00 10/26/18 20:00 10/26/18 20:00 10/26/18 20:00 O2 (L/minute) 4 Constitutional: no apparent distress, other (intermittently sniffing throughout encounter) Eyes: PERRL, anicteric sclera, EOMI Ears, Nose, Mouth, Throat: moist mucous membranes, hearing normal, ears appear normal, no oral mucosal ulcers Cardiovascular: tachycardia, No systolic murmur, No JVD, No edema Respiratory: no respiratory distress, reduced air movement, rhonchi (mild, diffuse) Gastrointestinal: normoactive bowel sounds, soft, non-tender abdomen, no palpable masses Genitourinary: no bladder fullness, no bladder tenderness Skin: other (left forearm erythematous and edematous, no Janeway lesions/osler nodes) Musculoskeletal: full muscle strength Neurologic: AAOx3 Psychiatric: interacting appropriately, not encephalopathic Lab Data & Imaging Review 10/26/18 16:20 10/26/18 16:20 WBC 20.41 10^3/uL (3.80-9.50) H 10/26/18 16:20 RBC 3.41 10^6/uL (4.18-5.33) L 10/26/18 16:20 Hgb 8.5 g/dL (12.6-16.3) L 10/26/18 16:20 POC Hgb 10.2 gm/dL (12.6-16.3) L 10/26/18 16:44 Hct 24.8 % (38.0-47.0) L 10/26/18 16:20 POC Hct 30 % (38-47) L 10/26/18 16:44 MCV 72.7 fL (81.5-99.8) L 10/26/18 16:20 MCH 24.9 pg (27.9-34.1) L 10/26/18 16:20 MCHC 34.3 g/dL (32.4-36.7) 10/26/18 16:20 RDW 17.1 % (11.5-15.2) H 10/26/18 16:20 Plt Count 173 10^3/uL (150-400) 10/26/18 16:20 MPV 10.6 fL (8.7-11.7) 10/26/18 16:20 Neut % (Auto) Not Reported 10/26/18 16:20 Lymph % (Auto) Not Reported 10/26/18 16:20 [place] % (Auto) Not Reported 10/26/18 16:20 Eos % (Auto) Not Reported 10/26/18 16:20 Baso % (Auto) Not Reported 10/26/18 16:20 Nucleat RBC Rel Count Not Reported 10/26/18 16:20 Absolute Neuts (auto) Not Reported 10/26/18 16:20 Absolute Lymphs (auto) Not Reported 10/26/18 16:20 Absolute Monos (auto) Not Reported 10/26/18 16:20 Absolute Eos (auto) Not Reported 10/26/18 16:20 Absolute Basos (auto) Not Reported 10/26/18 16:20 Absolute Nucleated RBC Not Reported 10/26/18 16:20 Immature Gran % Not Reported 10/26/18 16:20 Seg Neutrophils % 73.0 % 10/26/18 16:20 Band Neutrophils % 18.0 % 10/26/18 16:20 Lymphocytes % 6.0 % 10/26/18 16:20 Monocytes % 1.0 % 10/26/18 16:20 Eosinophils % 2.0 % 10/26/18 16:20 Basophils % 0.0 % 10/26/18 16:20 Metamyelocytes % 0.0 % 10/26/18 16:20 Myelocytes % 0.0 % 10/26/18 16:20 Promyelocytes % 0.0 % 10/26/18 16:20 Blast Cells % 0.0 % 10/26/18 16:20 Immature Gran # Not Reported 10/26/18 16:20 Absolute Seg Neuts 14.90 10^3/uL (1.70-6.50) H 10/26/18 16:20 Absolute Band Neuts 3.67 10^3/uL (0.00-0.70) H 10/26/18 16:20 Absolute Lymphocytes 1.22 10^3/uL (1.00-3.00) 10/26/18 16:20 Absolute Monocytes 0.20 10^3/uL (0.30-0.80) L 10/26/18 16:20 Absolute Eosinophils 0.41 10^3/uL (0.03-0.40) H 10/26/18 16:20 Absolute Basophils 0.00 10^3/uL (0.02-0.10) L 10/26/18 16:20 Absolute Metamyelocyte 0.00 10^3/mL (0.00-0.00) 10/26/18 16:20 Absolute Myelocytes 0.00 10^3/mL (0.00-0.00) 10/26/18 16:20 Absolute Promyelocytes 0.00 10^3/uL (0.00-0.00) 10/26/18 16:20 Absolute Plasma Cells 0.00 10^3/uL (0.00-0.00) 10/26/18 16:20 Nucleated RBCs 0 /100 WBC (0-0) 10/26/18 16:20 Absolute Blast Cells 0.00 10^3/uL (0.00-0.00) 10/26/18 16:20 Plasma Cells % 0.0 % 10/26/18 16:20 Platelet Estimate ADEQUATE (ADEQ) 10/26/18 16:20 Hypochromasia 1+ H 10/26/18 16:20 Microcytic Cells 2+ H 10/26/18 16:20 Target Cells 1+ H 10/26/18 16:20 Oval Macrocytes 1+ H 10/26/18 16:20 Elliptocytes 1+ H 10/26/18 16:20 Schistocytes 1+ H 10/26/18 16:20 VBG Lactic Acid 1.3 mmol/L (0.7-2.1) 10/26/18 18:15 POC Sodium 139 mEq/L (135-145) 10/26/18 16:44 Sodium 137 mEq/L (135-145) 10/26/18 16:20 POC Potassium 3.4 mEq/L (3.3-5.0) 10/26/18 16:44 Potassium 3.4 mEq/L (3.3-5.0) 10/26/18 16:20 POC Chloride 102 mEq/L (97-110) 10/26/18 16:44 Chloride 102 mEq/L (97-110) 10/26/18 16:20 Carbon Dioxide 23 mEq/l (22-31) 10/26/18 16:20 Anion Gap 12 mEq/L (6-14) 10/26/18 16:20 POC BUN 9 mg/dL (7-23) 10/26/18 16:44 BUN 11 mg/dL (7-23) 10/26/18 16:20 Creatinine 0.7 mg/dL (0.6-1.0) 10/26/18 16:20 POC Creatinine 0.6 mg/dL (0.6-1.0) 10/26/18 16:44 Estimated GFR > 60 10/26/18 16:20 Glucose 106 mg/dL (70-100) H 10/26/18 16:20 POC Glucose 107 mg/dL (70-100) H 10/26/18 16:44 Calcium 7.9 mg/dL (8.5-10.4) L 10/26/18 16:20 Beta HCG, Qual NEGATIVE 10/26/18 16:20 Visualized and Interpreted Chest x-ray results: Yes Interpretation: CXR: patchy bilateral (mostly basilar) alveolar opacities. CTA chest: no e/o PE, moderate diffuse rounded areas of consolidation involving with some cavitary components in left upper lobe, small right pleural effusion Visualized and Interpreted EKG results: Yes EKG additional interpertation: ECG: sinus tachycardia, no acute ischemic changes Assessment & Plan Assessment: 23yo F with history of MRSA chest wall abscess/sternal osteomyelitis s/p debridements, IVDU with opiate and benzodiazepine dependence, and anxiety who presents with 5-6 days of shortness of breath, non-productive cough, muscle aches, and chills found to be septic with possible septic emboli in lungs. Plan: 1. Sepsis: Evidenced by tachycardia, leukocytosis, tachypnea. I think left arm abscess was initial source but I am concerned about her having endocarditis and bacteremia given her clinical presentation and potential septic emboli. Biggest concern would be MRSA. - Vancomycin (goal trough 15-20), zosyn 4.5g q6h - ID consultation - Follow blood cultures - TTE ordered to start, will likely need LUIS FERNANDO - Left forearm ultrasound to look for drainable fluid collection. Pending results, obtain surgical consultation - Low threshold for additional imaging (ie. spine) if unclear source 2. Potential septic emboli: Some appear to be cavitary. As above, concern that she has bacterial endocarditis. Obtaining echo as above. 3. Left arm cellulitis: Some induration as well. Getting ultrasound to look for abscess. 4. Anemia: Likely chronic inflammation. Check iron studies in AM. 5. H/o IVDU: Denies any recently but appearing of arm is concerning that she has relapsed. Check HIV, hep C. Previously labs show immunity to hep B. 6. Anxiety: Continue home klonipin, seroquel at night. VTE ppx: Code: full Dispo: Admit as inpatient
[2018-10-27] MEDS: ACETAMINOPHEN 325 MG TAB PO PRN ×3 (01:18→19:34)
[2018-10-27] MEDS: VANCOMYCIN HCL/NORMAL SALINE 250 ML IV SCH ×2 (01:20→09:44)
[2018-10-27] MEDS: oxyCODONE IR 5 MG TAB PO PRN ×4 (02:27→19:33)
[2018-10-27 03:50] LABS: PLATELET COUNT 172 10^3/uL (150-400)
[2018-10-27] MEDS ORDERED: PIPERACILLIN/TAZO 4.5 GM/DEX 100 ML IV SCH (06:00)
--- NOTE | 2018-10-27 08:29 | ASMTLACE ---
[place] Acuity / Level of Answers: Yes Care: Did the patient have an inpatient admission? Comorbidities - select Answers: Opioid dependence all that apply / Chronic pain # of Emergency department Answers: 3-4 visits in the last 6 months Social determinants Answers: History of substance abuse (ETOH, street drugs, prescription drugs, etc.) Mental health diagnosis (anxiety, depression, pers onality disorders, etc.) Score: 16 Date Signed: 10/27/2018 08:28 AM Electronically Signed By:Marge Castro
--- NOTE | 2018-10-27 09:34 | PDMN ---
Medical Necessity Medical necessity: [facility] [place] sepsis and other febrile illness A-3 days: tachycardia, leukocytosis, tachypnea, concern for endocarditis, bacteremia, and MRSA. L arm abscess, potential septic emboli, sm. R pleural effusion, anemia- likely chronic, PMHx IVDU, MRSA, chest wall abscess/sternal osteomyelitis, opiate and benzo dependent, anxiety, LUE abscess, anemia of chronic inflammation. anticipate > 2 MN ongoing med nec care, further eval and tx
[2018-10-27] MEDS: NS 1,000 ML IV SCH ×2 (09:45→12:21)
[2018-10-27] MEDS: clonazePAM 1 MG TAB PO PRN (09:51)
--- NOTE | 2018-10-27 10:30 | ASMTCMCOM ---
CM Note CM Note Notes: Pts case discussed w/ ruby Oreilly RN. Pt is a 23 y/o female admitted for hx of iv drug use, opiate and benzo dependence. Wound care, ID and transitional care are following this case. Pt is being transferred to ICU. Needs are TBD at this time. CM to follow. Plan: TBD Date Signed: 10/27/2018 10:30 AM Electronically Signed By:SWETA Lyons
[2018-10-27 10:45] LABS: HEPATITIS C ANTIBODY TOTAL NEGATIVE (NEGATIVE); HIV TYPE 1 AND 2 NEGATIVE (NEGATIVE)
[2018-10-27] MEDS ORDERED: ALTEPLASE 2 MG VIAL IVP PRN (11:07)
--- NOTE | 2018-10-27 11:58 | ECHO ---
[email or web address] [address] Main: [phone] Fax: Transthoracic Echocardiogram Name: DARRON POPE MR#: [id number] Study Date: 10/27/2018 Study Time: 10:54 AM Date of : 1995 Age: 23 year(s) Height: 170.2 cm (67 in.) Weight: 54.43 kg (120 lb.) BSA: 1.63 m2 Gender: Female Examination: Echo Indication: eval for endocarditis Image Quality: Adequate Contrast: Requested by: Mike Huizar BP: / Heart Rate: Rhythm: Indication: eval for endocarditis Procedure Staff Garment Finisher: Yvette Farooq [facility] Reading Physician: Nixon Adler MD Requesting Provider: Conclusions: Normal size left ventricle. EF is 77 %. No regional wall motion abnormality. Mildly dilated right ventricle. Mildly reduced RV function. The mitral valve is normal in appearance. Trivial mitral valve regurgitation. The aortic valve is tri-leaflet and functions normally. Moderate tricuspid regurgitation is present. There is a very large multi-lobular vegetation noted on or near the septal tricuspid leaflet. It is seen both on the atrial side and ventricular side of the TV valve near the annulus. The pulmonic valve is normal in appearance and function. No pericardial effusion. Compared to 03/06/2018, the tricuspid vegetation is new. Measurements: Chambers Valvular Assessment AV/MV Valvular Assessment TV/PV Normal Normal Normal Name Value Range Name Value Range Name Value Range Ao Mary (MM): 2.9 cm (2.2 cm-3.7 AV Vmax: 1.75 m/s (1 m/s-1.7 TR Vmax: 2.90 mm/s ( - ) cm) m/s) TR PGmax: 34 mmHg ( - ) IVSd (2D): 1.0 cm (0.6 cm-1.1 AV maxP mmHg ( - ) syst. PAP: 39 mmHg ( - ) cm) LVOT Vmax: 1.13 m/s (0.7 m/s-1.1 PV Vmax: 1.55 m/s (0.6 m/s-0.9 LVDd (2D): 5.0 cm (3.9 cm-5.3 m/s) m/s) cm) W[place]ON (Vmax): 2.2 cm2 ( - ) PV PGmax: 10 mmHg ( - ) LVDs (2D): 2.7 cm (2.1 cm-4 cm) LVPWd (2D): 1.2 cm ( - ) LVOTd 2.1 cm 2.1 cm mm LVEF (2D): 77 (>=54 %) Patient: DARRON POPE Study Date: 10/27/2018 Page 1 of 2 10:54 AM RVDd(2D): 4.0 cm (1.9 cm-3.8 cmmm) Continued Measurements: Valvular Assessment TV/PV Name Value CVP (est.): 5 mmHg Findings: Left Ventricle: Normal size left ventricle. No LV hypertrophy. Normal global systolic LV function. EF is 77 %. No regional wall motion abnormality. Unable to assess diastolic dysfunction. Right Ventricle: Mildly dilated right ventricle. Mildly reduced RV function. Left Atrium: The left atrium is normal in size. Right Atrium: The right atrium is normal in size. Mitral Valve: The mitral valve is normal in appearance. Trivial mitral valve regurgitation. No mitral stenosis is present. There is no mitral valve vegetation. Aortic Valve: The aortic valve is tri-leaflet and functions normally. There is no aortic valve regurgitation. No aortic valve stenosis is present. Tricuspid Valve: Moderate tricuspid regurgitation is present. There is a very large multi-lobular vegetation noted on or near the septal tricuspid leaflet. It is seen both on the atrial side and ventricular side of the TV valve near the annulus. Pulmonic Valve: The pulmonic valve is normal in appearance and function. There is no pulmonic regurgitation seen. There is no pulmonary valve vegetation. Aorta: Normal size aortic root measuring 2.9 cm. Pulmonary Artery: Main PA appears dilated. IVC: Normal size and course of the IVC. Pericardium: No pericardial effusion. (No Signature Object) Patient: DARRON POPE Study Date: 10/27/2018 Page 2 of 2 10:54 AM [id number]
--- NOTE | 2018-10-27 13:29 | HOSPPROG ---
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 I was called urgently to bedside due to tachypnea. The pt has gone from RA to 4 Liters. She has increased work of breathing. She is sounds coarse on exam. She cont to deny recent IV drug use. Blood culture is c/w SA which is different than her previous infection. She has generalized pain everywhere, worse with inspiration. She c/o of bilateral arm swelling. She c/o of abd pain. No n/v. No palpitations A CXR was obtained stat and shows worsening infiltrated. I've requested a STAT echo. I am concerned that she has vegetations/endocarditis I will transfer her from the PCU to ICU We will repeat labs will also obtain CT abdomen given her new ab pain Likely needs a PICC line More reccs pending w/u and tests ordered ID to see. For now continue with broad spectrum abx, ID can modify per culture If worsen resp status, may need intubation f/u Left forearm ultrasound 1. Sepsis: 2. septic pulmonary emboli, Pneumonia: Some appear to be cavitary. As above, concern that she has bacterial endocarditis. Obtaining echo as above. 3. Left arm cellulitis: Some induration as well. Getting ultrasound to look for abscess. 4. Anemia: Likely chronic inflammation. Check iron studies in AM. 5. H/o IVDU: Denies any recently but appearing of arm is concerning that she has relapsed. Check HIV, hep C. Previously labs show immunity to hep B. 6. Anxiety: Continue home klonipin, seroquel at night. 7. Acute Respiratory Failure 8. Abdominal pain total critical care time is 45 mins. d/w nursing. d/w Pulm Subjective: called urgently to bedside. increased work of breathing. generalized pain. no cough. + abd pain Objective: Vital Signs Temp Pulse Resp BP Pulse Ox 39.1 C H 119 H 29 H 121/66 H 95 10/27/18 11:00 10/27/18 12:00 10/27/18 12:00 10/27/18 12:00 10/27/18 12:00 Laboratory Results 10/27/18 03:30 10/27/18 03:30 10/26/18 10/27/18 10/28/18 05:59 05:59 05:59 Intake Total 2500 400 Output Total 1750 600 Balance 750 -200 - Physical Exam Constitutional: chronically ill appearing Eyes: PERRL Ears, Nose, Mouth, Throat: moist mucous membranes Cardiovascular: tachycardia, edema Respiratory: respiratory distress, rhonchi, No no respiratory distress Gastrointestinal: normoactive bowel sounds, tenderness, No rebound, No distension Skin: warm Neurologic: AAOx3 Psychiatric: interacting appropriately, anxious Lymph, Heme, Immunologic: No petechiae ICD10 Worksheet Patient Problems: Problems Problem Status Onset IV drug user Acute Pneumonia Acute Sepsis Acute Tachycardia Acute Abscess Acute Anemia Acute Narcotic abuse Acute Psychosis Acute Ventral hernia Acute
--- NOTE | 2018-10-27 13:47 | PDGENHP ---
History and Physical - Chief Complaint TV endocarditis - History of Present Illness 23F with h/o IVDU admitted 10/27 with severe dyspnea found to have large tricuspid valve vegetation with severe TR, S. aureus bacteremia and extensive pulmonary emboli. CTSx consulted for TV debridement and repair vs replacement. Pt denies recent IVDU. She is currently comfortable without complaints. History Information - Allergies/Home Medication List Allergies/Adverse Reactions: No Known Allergies Allergy (Verified 10/26/18 15:42) Home Medications: Amphet Asp and D/Amphet [Adderall 20 mg (*)] 20 mg PO DAILY PRN 10/26/18 [Last Taken Unknown] QUEtiapine FUMARATE [Seroquel 50 mg (*)] 50 mg PO HS 10/26/18 [Last Taken Unknown] Sumatriptan Succinate [Imitrex] 100 mg PO DAILY PRN 10/26/18 [Last Taken Unknown ] Zolpidem Tartrate [Ambien 5MG (*)] 5 mg PO HS 10/26/18 [Last Taken Unknown] clonazePAM [klonoPIN (*)] 1 mg PO BID PRN 10/26/18 [Last Taken Unknown] oxyCODONE IR [Oxycodone Ir (*)] 10 mg PO HS 10/26/18 [Last Taken Unknown] I have personally reviewed and updated: medical history, social history, surgical history - Past Medical History Additional medical history: MRSA chest wall abscess/sternal osteomyelitis, IVDU , opiate and benzodiazepine dependence, anxiety, left upper extremity abscess, anemia of chronic inflammation - Surgical History Additional surgical history: Ventral hernia repair, sternal wound I&D with surgical removal of portion of sternum and skin flap - Family History Positive for: non-pertinent Additional family history: Asked, denies - Social History Smoking Status: Never smoked Alcohol Use: None Drug Use: Other (denies using IV drugs since 02/2018, previously using heroin) Review of Systems Review of Systems: Constitutional: Reports: no symptoms EENMT: Reports: no symptoms Cardiac: Reports: no symptoms Respiratory: Reports: no symptoms Gastrointestinal: Reports: no symptoms Genitourinary: Reports: no symptoms Muscolosketal: Reports: no symptoms Skin: Reports: no symptoms Neurological: Reports: no symptoms Physical Exam Physical Exam: Temp Pulse Resp BP Pulse Ox 39.1 C H 119 H 29 H 121/66 H 95 10/27/18 11:00 10/27/18 12:00 10/27/18 12:00 10/27/18 12:00 10/27/18 12:00 O2 (L/minute) 5 Constitutional: chronically ill appearing, uncomfortable, unkempt Eyes: anicteric sclera Ears, Nose, Mouth, Throat: moist mucous membranes Cardiovascular: systolic murmur, tachycardia Respiratory: no respiratory distress Gastrointestinal: soft, non-tender abdomen Skin: mottled, fluctuance (LUE) Musculoskeletal: full muscle strength Neurologic: AAOx3 Psychiatric: interacting appropriately, anxious, agitated, poor insight Lab Data & Imaging Review 10/27/18 03:30 10/27/18 03:30 WBC 17.92 10^3/uL (3.80-9.50) H 10/27/18 03:30 RBC 2.80 10^6/uL (4.18-5.33) L 10/27/18 03:30 Hgb 7.0 g/dL (12.6-16.3) L 10/27/18 03:30 POC Hgb 10.2 gm/dL (12.6-16.3) L 10/26/18 16:44 Hct 20.5 % (38.0-47.0) L 10/27/18 03:30 POC Hct 30 % (38-47) L 10/26/18 16:44 MCV 73.2 fL (81.5-99.8) L 10/27/18 03:30 MCH 25.0 pg (27.9-34.1) L 10/27/18 03:30 MCHC 34.1 g/dL (32.4-36.7) 10/27/18 03:30 RDW 17.0 % (11.5-15.2) H 10/27/18 03:30 Plt Count 172 10^3/uL (150-400) 10/27/18 03:30 MPV 10.8 fL (8.7-11.7) 10/27/18 03:30 Neut % (Auto) 83.4 % (39.3-74.2) H 10/27/18 03:30 Lymph % (Auto) 8.6 % (15.0-45.0) L 10/27/18 03:30 [place] % (Auto) 6.6 % (4.5-13.0) 10/27/18 03:30 Eos % (Auto) 0.2 % (0.6-7.6) L 10/27/18 03:30 Baso % (Auto) 0.1 % (0.3-1.7) L 10/27/18 03:30 Nucleat RBC Rel Count 0.0 % (0.0-0.2) 10/27/18 03:30 Absolute Neuts (auto) 14.95 10^3/uL (1.70-6.50) H 10/27/18 03:30 Absolute Lymphs (auto) 1.54 10^3/uL (1.00-3.00) 10/27/18 03:30 Absolute Monos (auto) 1.18 10^3/uL (0.30-0.80) H 10/27/18 03:30 Absolute Eos (auto) 0.04 10^3/uL (0.03-0.40) 10/27/18 03:30 Absolute Basos (auto) 0.02 10^3/uL (0.02-0.10) 10/27/18 03:30 Absolute Nucleated RBC 0.00 10^3/uL (0-0.01) 10/27/18 03:30 Immature Gran % 1.1 % (0.0-1.1) 10/27/18 03:30 Seg Neutrophils % 73.0 % 10/26/18 16:20 Band Neutrophils % 18.0 % 10/26/18 16:20 Lymphocytes % 6.0 % 10/26/18 16:20 Monocytes % 1.0 % 10/26/18 16:20 Eosinophils % 2.0 % 10/26/18 16:20 Basophils % 0.0 % 10/26/18 16:20 Metamyelocytes % 0.0 % 10/26/18 16:20 Myelocytes % 0.0 % 10/26/18 16:20 Promyelocytes % 0.0 % 10/26/18 16:20 Blast Cells % 0.0 % 10/26/18 16:20 Immature Gran # 0.20 10^3/uL (0.00-0.10) H 10/27/18 03:30 Absolute Seg Neuts 14.90 10^3/uL (1.70-6.50) H 10/26/18 16:20 Absolute Band Neuts 3.67 10^3/uL (0.00-0.70) H 10/26/18 16:20 Absolute Lymphocytes 1.22 10^3/uL (1.00-3.00) 10/26/18 16:20 Absolute Monocytes 0.20 10^3/uL (0.30-0.80) L 10/26/18 16:20 Absolute Eosinophils 0.41 10^3/uL (0.03-0.40) H 10/26/18 16:20 Absolute Basophils 0.00 10^3/uL (0.02-0.10) L 10/26/18 16:20 Absolute Metamyelocyte 0.00 10^3/mL (0.00-0.00) 10/26/18 16:20 Absolute Myelocytes 0.00 10^3/mL (0.00-0.00) 10/26/18 16:20 Absolute Promyelocytes 0.00 10^3/uL (0.00-0.00) 10/26/18 16:20 Absolute Plasma Cells 0.00 10^3/uL (0.00-0.00) 10/26/18 16:20 Nucleated RBCs 0 /100 WBC (0-0) 10/26/18 16:20 RBC/WBC/PLT Morphology TN 10/27/18 03:30 Absolute Blast Cells 0.00 10^3/uL (0.00-0.00) 10/26/18 16:20 Plasma Cells % 0.0 % 10/26/18 16:20 Platelet Estimate TN 10/27/18 03:30 Hypochromasia 1+ H 10/26/18 16:20 Microcytic Cells 2+ H 10/26/18 16:20 Target Cells 1+ H 10/26/18 16:20 Oval Macrocytes 1+ H 10/26/18 16:20 Elliptocytes 1+ H 10/26/18 16:20 Schistocytes 1+ H 10/26/18 16:20 VBG Lactic Acid 1.3 mmol/L (0.7-2.1) 10/26/18 18:15 POC Sodium 139 mEq/L (135-145) 10/26/18 16:44 Sodium 139 mEq/L (135-145) 10/27/18 03:30 POC Potassium 3.4 mEq/L (3.3-5.0) 10/26/18 16:44 Potassium 3.6 mEq/L (3.3-5.0) 10/27/18 03:30 POC Chloride 102 mEq/L (97-110) 10/26/18 16:44 Chloride 108 mEq/L (97-110) 10/27/18 03:30 Carbon Dioxide 24 mEq/l (22-31) 10/27/18 03:30 Anion Gap 7 mEq/L (6-14) 10/27/18 03:30 POC BUN 9 mg/dL (7-23) 10/26/18 16:44 BUN 8 mg/dL (7-23) 10/27/18 03:30 Creatinine 0.7 mg/dL (0.6-1.0) 10/27/18 03:30 POC Creatinine 0.6 mg/dL (0.6-1.0) 10/26/18 16:44 Estimated GFR > 60 10/27/18 03:30 Glucose 99 mg/dL (70-100) 10/27/18 03:30 POC Glucose 107 mg/dL (70-100) H 10/26/18 16:44 Calcium 7.3 mg/dL (8.5-10.4) L 10/27/18 03:30 Iron 17.0 mcg/dL (37.0-170.0) L 10/27/18 03:30 TIBC 250 ug/dL (260-490) L 10/27/18 03:30 Iron Saturation 7 % (20-55) L 10/27/18 03:30 Ferritin 59.2 ng/mL (6.2-264.0) 10/27/18 03:30 Total Bilirubin 0.4 mg/dL (0.1-1.4) 10/27/18 03:30 AST 17 IU/L (14-46) 10/27/18 03:30 ALT 18 IU/L (9-52) 10/27/18 03:30 Alkaline Phosphatase 122 IU/L (38-126) 10/27/18 03:30 Total Protein 5.3 g/dL (6.3-8.2) L 10/27/18 03:30 Albumin 2.2 g/dL (3.5-5.0) L 10/27/18 03:30 Beta HCG, Qual NEGATIVE 10/26/18 16:20 Hepatitis C Antibody NEGATIVE (NEGATIVE) 10/27/18 03:30 HIV 1&2 Antibody NEGATIVE (NEGATIVE) 10/27/18 03:30 Visualized and Interpreted Chest x-ray results: Yes Chest X-Ray results: other (CHF) Assessment & Plan Assessment: IV drug user (Acute) Pneumonia (Acute) Sepsis (Acute) Tachycardia (Acute) Plan: See Dr. Mi's progress note.
--- NOTE | 2018-10-27 13:54 | SOAPPROG ---
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 Large vegetation with severe TR. Also with left forearm abscess. S/p sternal debridement and repair at [facility] for osteo. She is denying recent IV drug usage. [id number] BP{ 120 syst Lungs scattered rhonchi Cot RRR w/o m Has sternal defect midsternum w/ SG coverage Hct 20% Pt will need TV debridement. Because of sternal deformity, should be done via right chest approach. Will set this up for Dr. Butterfield on Tuesday unless pt deteriorates. ICD10 Worksheet Patient Problems: Problems Problem Status Onset IV drug user Acute Pneumonia Acute Sepsis Acute Tachycardia Acute Abscess Acute Anemia Acute Narcotic abuse Acute Psychosis Acute Ventral hernia Acute
--- NOTE | 2018-10-27 14:23 | GCON ---
RUBY [employer] RAILS DEVELOPER CONSULTATION REASON FOR ADMISSION: Sepsis, endocarditis, IV drug use. HISTORY OF PRESENT ILLNESS: The patient is a 23-year-old white female, well known to me, with a past medical history, including IV drug use, sternal osteomyelitis in February of this year, requiring debri aden, as well as skin grafting. She presented to the emergency room with complaints of cough and b reathlessness. This was associated with muscle aches as well. At the time, she was thought to have the flu. She had an elevated white count and was subsequently admitted to the floor. Over the next short period of time, her condition worsened. She was transferred from the floor to the intensive ca re unit. Echocardiogram was performed and has revealed tricuspid endocarditis. Infectious Disease h as been consulted, as has Cardiothoracic Surgery. She is currently on IV nafcillin. She continues t o be somewhat tachypneic. PAST MEDICAL HISTORY: Again significant for methicillin-resistant Staph aureus chest wall abscess an d sternal osteomyelitis, longstanding history of IV drug use, opiate and benzodiazepine dependence. PAST SURGICAL HISTORY: Again, she has had sternal wound I and D, as well as removal of a portion of the sternum and a skin flap. REVIEW OF SYSTEMS: Ten-point review of systems was performed and is negative, except for what is lis daphne in the HPI. SOCIAL HISTORY: No history of tobacco use. No history of alcohol use, but longstanding history of I V drug use. She denies currently using. PHYSICAL EXAM: VITAL SIGNS: Blood pressure is 119/65, pulse 130, respirations 40, temperature 39.4, oxygen saturation 94% on 4 L. GENERAL: She is a thin, malnourished 23-year-old white female who is in moderate distress. HEENT: Eyes are PERRL, EOMI. Throat shows no erythema or tonsillar hypertrop hy. NECK: Supple. There is no cervical adenopathy. HEART: Tachycardic but regular rate and rhyth m. No murmurs appreciated. LUNGS: Diminished breath sounds and bibasilar crackles. ABDOMEN: Soft , nontender. Bowel sounds are present. EXTREMITIES: Show track pinedo on her upper extremities. LABORATORIES: White count of 17.9, hemoglobin 7, hematocrit 20. Platelet count is 172. Sodium 139, potassium 3.6, chloride 108. CO2 is 24, BUN 8, creatinine 0.7. Glucose is 99. Beta hCG is negativ e. Hepatitis C and HIV 1 and 2 are negative. Chest x-ray interpreted by me shows diffuse infiltrate s increased in the bases. There are some areas of focal abscess. IMPRESSION: 1. Sepsis, methicillin-susceptible Staphylococcus aureus. 2. Longstanding history of intravenous drug use, which appears to be continuing. 3. Endocarditis, tricuspid. 4. Sepsis. 5. Acute respiratory failure. 6. Infective embolic infiltrates, bilateral lungs. RECOMMENDATIONS: 1. Will obtain a PICC line. 2. Continue IV antibiotics as we are doing. 3. Close cardiovascular monitoring. 4. If the patient's respiratory status worsens, will intubate and place on mechanical ventilation. 5. Anticipate cardiothoracic surgery with valve replacement soon for source control. 6. DVT and PE prophylaxis. 7. Stress ulcer prophylaxis. /[id number]/MODL
[2018-10-27] MEDS: NAFCILLIN SODIUM 2 GM in D5W 100 ML IV SCH ×3 (14:38→22:11)
--- NOTE | 2018-10-27 16:07 | WOCRNPDOC ---
WOCRN Advanced Assessment Note - Skin Integrity Problem, Advanced Assess Left Lower Arm Abscess Dressing Type: Allevyn Life Dressing Description: Clean/Dry, Intact Exudate Amount: Minimal Exudate Characteristic(s): Sanguinopurulent Integumentary Issue Intervention: Visualized Under Dressing Alisa Wound Tissue: Erythema ( alisa wound only), Scarred Wound Bed Constitution: Loose Slough Site Measurement - Head-to-Toe Length X Width X Depth (cm): 0.6x0.8x0.7 Skin Integrity Problem Comment: Patient had a very difficult time allowing campaign assistant to clean out wound as she kept pulling away due to pain. Only partially successful with mechanical debridement. There is a small layer of tissue overlying a pink wound bed. 50% of which was removed with a q tip. Recommend BID wet to dry changes with 1/4 strenght dakins to remove necrosis and bacteria. This order will be changed next week when the necrosis has been removed and wound bed is barrel loader and cleaner. Wound care will round again next week.
[2018-10-27] MEDS ORDERED: FUROSEMIDE 40 MG/4 ML VIAL IVP ONE (16:35)
[2018-10-27] MEDS: FUROSEMIDE 20 MG/2 ML VIAL IVP ONE ×3 (18:40→22:09)
[2018-10-27] MEDS ORDERED: FUROSEMIDE 20 MG/2 ML VIAL ONE (18:43)
[2018-10-27] MEDS ORDERED: FUROSEMIDE 40 MG/4 ML VIAL ONE (18:45)
[2018-10-27 18:48] LABS: INR 1.31 (0.83-1.16); PROTIME(PATIENT) 16.5 SEC (12.0-15.0)
[2018-10-27] MEDS: ZOLPIDEM TARTRATE 5 MG TAB PO SCH (19:44)
[2018-10-27] MEDS: QUEtiapine FUMARATE 50 MG TAB PO SCH (19:44)
[2018-10-28] MEDS: ACETAMINOPHEN 325 MG TAB PO PRN ×2 (00:46→05:47)
[2018-10-28] MEDS: oxyCODONE IR 5 MG TAB PO PRN ×6 (00:47→21:52)
[2018-10-28] MEDS: NAFCILLIN SODIUM 2 GM in D5W 100 ML IV SCH ×6 (03:33→21:53)
[2018-10-28 05:07] LABS: PLATELET COUNT 184 10^3/uL (150-400)
[2018-10-28 05:15] LABS: INR 1.39 (0.83-1.16); PROTIME(PATIENT) 17.2 SEC (12.0-15.0)
[2018-10-28] MEDS: NS 1,000 ML IV SCH (06:14)
--- NOTE | 2018-10-28 07:07 | GCON ---
INPATIENT INFECTIOUS DISEASE CONSULTATION. REASON FOR REFERRAL: Staph aureus bacteremia. HISTORY OF PRESENT ILLNESS: The patient is a 23-year-old female who was admitted to [facility] on 10/26/2018 through the emergency room in the mid to late afternoon. The patient came to the emergency room complaining of general malaise and cough with dyspnea. The patient does have a hi story of IV drug use. She has had recent admissions for sternal osteomyelitis. She was seen and stacy luated in the emergency room and it was discovered by chest CT that she had bilateral areas in her wil ngs suspicious for septic emboli. She was started empirically on IV vancomycin. Blood cultures take n in the emergency room revealed growth of gram-positive cocci in clusters in both sets, which was id entified by [facility] PCR panel as methicillin sensitive Staphylococcus aureus. Currently, the patient is moderately dyspneic and resting in the ICU. She denies firmly any IV drug use since February. However , the patient does have track pinedo on the antecubital areas of both arms. The patient acknowledges feeling worse overall on this visit than she did when she had sternal osteomyelitis secondary to MRSA multiple months ago. Echocardiogram has since revealed tricuspid valve lesions on both the atrial and ventricular aspects of the tricuspid anulus. PAST MEDICAL HISTORY: 1. IV drug use. 2. MRSA osteomyelitis. 3. Anxiety. 4. Multiple abscesses. PAST SURGICAL HISTORY: 1. Status post hernia repair. 2. Status post sternal wound I and D with surgical removal of osteomyelitic sternum and skin flap. ANTIBIOTICS: Vancomycin. ALLERGIES: The patient has no known drug allergies. SOCIAL HISTORY: As above. The patient denies any tobacco use. No alcohol use. FAMILY HISTORY: Reviewed but noncontributory. REVIEW OF SYSTEMS: Other than that detailed above in history of present illness, a comprehensive 10- system review is negative. PHYSICAL EXAMINATION: VITAL SIGNS: Temperature maximum 39.4, temperature current 39.1, heart rate i s 114, respiratory rate is 26, blood pressure is 94/62. GENERAL: The patient is a well-formed, well -nourished young female in moderate distress. She is toxic in appearance. She is alert and oriented x3. HEENT: Normocephalic for age. Atraumatic. No scleral icterus. No oral lesion. No drainage from the nares. Eyes, lids and conjunctivae within normal limits. Pupils are equal and round bilater ally. NECK: Supple. No meningismus. HEART: Regular rate and rhythm, trending to tachycardic. Th e patient has no systolic murmur. She has no peripheral edema. Of note, patient has on her anterior chest evidence of sternal resection and soft tissue skin flap. RESPIRATORY: The patient is clear to auscultation bilaterally and only mild rhonchorous diffuse sounds. SKIN: Warm and dry to the touch. No rash or lesion noted. MUSCULOSKELETAL: No muscle tenderness is noted. No joint line effusion or arthritis seen. NEURO: Cranial nerves 2-12 seem to be intact. Peripheral sensation seems intact in extremities. LABORATORY DATA: Patient has a CBC dated 10/27/2018, shows a white blood cell count of 17.9, hemoglo bin of 7.0, hematocrit of 20.5, platelet count 172. Differential is left-shifted with 83% segmented neutrophils. Serum chemistries on 10/27/2018 show sodium 139, potassium of 3.6, chloride of 108, bic arb of 24, BUN of 8, creatinine of 0.7. AST 17, ALT is 18. Hepatitis C antibody as well as HIV 1 an d 2 antibodies were negative on 10/27/2018. MICROBIOLOGIC DATA: Patient has blood cultures dated 10/26/2018, 2/2 sets are growing gram-positive cocci in clusters identified as Staph aureus, methicillin-susceptible. ASSESSMENT: Right-sided endocarditis, tricuspid valve anulus appears to have a very large vegetation on it by 2D echocardiogram. Will change the vancomycin treatment to IV nafcillin 2 g q.4 hours. Ca rdiothoracic surgery has been consulted and has seen the patient. The patient is going to need a lat eral approach for valve debridement, given her sternal osteomyelitic history. Plans are to prepare f or surgery, either later this or on Tuesday. In the meantime, we will continue her on IV anti biotic therapy. We will monitor her blood stream, although in all likelihood with the degree and siz e of this vegetation, I do not expect clearance prior to surgery. PLAN: 1. Discontinue vancomycin. 2. Start nafcillin 2 g IV q.4 hours. 3. Follow up on laboratory values and clinical course. 4. Prepare for cardiothoracic surgery. /[id number]/MODL
--- NOTE | 2018-10-28 09:45 | PDINTPN ---
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 Pain well controlled. Less breathless today. Hungry. Objective: Vital Signs Temp Pulse Resp BP Pulse Ox 37.0 C 102 H 18 103/60 96 10/28/18 08:00 10/28/18 09:00 10/28/18 09:00 10/28/18 09:00 10/28/18 09:00 Laboratory Results 10/28/18 04:55 10/28/18 04:55 10/27/18 10/28/18 10/29/18 05:59 05:59 05:59 Intake Total 2500 2575 Output Total 1750 5300 Balance 750 -2725 PT 17.2 SEC (12.0-15.0) H 10/28/18 04:55 INR 1.39 (0.83-1.16) H 10/28/18 04:55 Laboratory Results 10/28/18 04:55 10/28/18 04:55 03/08/18 03/07/18 03/06/18 05:15 15:45 13:05 Calcium 8.2 mg/dL L mg/dL (8.5 - 10.4) Iron 28.0 mcg/dL L mcg/dL (37.0 - 170.0) TIBC 219 ug/dL L ug/dL (260 - 490) Iron Saturation 13 % L % (20 - 55) Ferritin 122.0 ng/mL ng/mL (6.2 - 264.0) Hep Bs Antibody Positive Hep Bs Antibody, Quant 20.5 mIU/mL mIU/mL 10/26/18 18:20 Blood Culture - Preliminary Blood Blood Panel (PCR) - Final Staphylococcus Aureus S.aureus Methicillin Suscept. 10/26/18 18:15 Blood Culture - Preliminary Blood Staphylococcus Aureus 03/05/18 22:30 Gram Stain - Final Chest - Tissue Anaerobic Culture - Preliminary Staphylococcus Aureus 03/05/18 22:30 Gram Stain - Final Chest - Aspirate Anaerobic Culture - Preliminary Staphylococcus Aureus 03/05/18 22:30 Gram Stain - Final Chest - Aspirate Anaerobic Culture - Preliminary MRSA - Time Spent With Patient Time Spent With Patient: 35 min of time spent with patient, over 1/2 involved with coordination of care or counseling. Case discussed with nursing. Physical Exam - Physical Exam General Appearance: alert, no apparent distress EENT: PERRL/EOMI Neck: non-tender Respiratory: crackles (Scattered), No respiratory distress, No wheezing Cardiac/Chest: normal peripheral pulses, regular rate, rhythm Peripheral Pulses: 2+: carotid (R), carotid (L), femoral (R), femoral (L), dorsalis-pedis (R), dorsalis-pedis (L) Abdomen: normal bowel sounds, non-tender, soft Pelvic Exam: deferred Rectal: deferred Skin: normal color, warm/dry Extremities: normal range of motion, non-tender, normal inspection, normal capillary refill Neuro/Psych: no motor/sensory deficits, alert, normal mood/affect, oriented x 3 ICD10 Worksheet Patient Problems: Problems Problem Status Onset IV drug user Acute Pneumonia Acute Sepsis Acute Tachycardia Acute Abscess Acute Anemia Acute Narcotic abuse Acute Psychosis Acute Ventral hernia Acute
[2018-10-28] MEDS ORDERED: FUROSEMIDE 20 MG/2 ML VIAL IVP ONE (10:21)
--- NOTE | 2018-10-28 10:27 | HOSPPROG ---
Hospitalist Progress Note Assessment/Plan: 23 yo F w IVDU, h/o sternal osteo here w sepsis, mssa bacteremia, TV endocarditis, wrist abscess. sepsis: 2/2 MSSA bacteremia from IVDU tachycardia, leukocytosis, source TV endocarditis: w septic embolis to lungs continue naf seen by CT surgery w plans fro valve replacement this week AHRF: 2/2 septic emboli continue 02 rec limiting lasix anemia: transfused 1 unit iron studies c/w chronic disease anxiety: continue klonopin proph: scd's dispo: icu, critically ill 45 min crit care Subjective: case d/w ezequiel cooper and jose. afebrile Objective: Vital Signs Temp Pulse Resp BP Pulse Ox 37.0 C 113 H 24 H 98/59 L 95 10/28/18 08:00 10/28/18 10:00 10/28/18 10:00 10/28/18 10:00 10/28/18 10:00 Laboratory Results 10/28/18 04:55 10/28/18 04:55 10/27/18 10/28/18 10/29/18 05:59 05:59 05:59 Intake Total 2500 2575 Output Total 1750 5300 Balance 750 -2725 PT 17.2 SEC (12.0-15.0) H 10/28/18 04:55 INR 1.39 (0.83-1.16) H 10/28/18 04:55 - Physical Exam Constitutional: no apparent distress, appears nourished Eyes: PERRL, anicteric sclera Ears, Nose, Mouth, Throat: moist mucous membranes, hearing normal Cardiovascular: regular rate and rhythym, no murmur, rub, or gallop Respiratory: no respiratory distress, other (diffuse crackles), No no rales or rhonchi Gastrointestinal: normoactive bowel sounds, soft, non-tender abdomen Genitourinary: no bladder fullness, No silva in urethra Skin: warm, normal color Musculoskeletal: other (L wrist w edema, no crepitance. purulent drainage on dorsum) Neurologic: AAOx3, sensation intact bilaterally Psychiatric: interacting appropriately, not anxious Lymph, Heme, Immunologic: no cervical LAD ICD10 Worksheet Patient Problems: Problems Problem Status Onset IV drug user Acute Pneumonia Acute Sepsis Acute Tachycardia Acute Abscess Acute Anemia Acute Narcotic abuse Acute Psychosis Acute Ventral hernia Acute
[2018-10-28] MEDS: SODIUM HYPOCHLORITE (DAKINS 1/4 STR) 473 ML BTL TP PRN (10:45)
[2018-10-28] MEDS ORDERED: PROTOCOL POTASSIUM 1 DOSE MISC PRN (10:45)
[2018-10-28] MEDS ORDERED: POTASSIUM CL 10 MEQ TAB PO ONE (11:10)
--- NOTE | 2018-10-28 13:54 | GCON ---
ORTHOPAEDIC CONSULTATION DATE OF CONSULTATION: 10/28/2018 CHIEF COMPLAINT: 1. Endocarditis. 2. Left forearm draining abscess. HISTORY OF PRESENT ILLNESS: Esperanza is well known to [facility],a 23-year-old female with a history of IV drug use. Multiple septic abscesses throughout. History of sternal osteomyelitis. I was asked to consult for a 1 cm wound on the dorsal aspect of her left forearm. Please see details of ER H and P and admitting H and P. PERTINENT ORTHOPEDIC PHYSICAL EXAMINATION: Reveals a cooperative, coherent female. She denies any c urrent IV drug use. She does smoke pot. The left forearm has a 1 cm eschar that is packed currently . There is no surrounding cellulitis. No foul smelling discharge. She has intact wrist extension, wrist flexion with no pain. Intact EPL, FPL, interossei and utility arborist with no pain. IMPRESSION AND RECOMMENDATION: Likely old abscess. Possibly a metastatic abscess from her endocardi tis. Recommend local wound care, antibiotics. It seems that she has cardiac intervention sometime t his week for her tricuspid. /[id number]/MODL
--- NOTE | 2018-10-28 16:07 | PCMIDPN ---
Assessment/Plan: Assessment: Right-sided endocarditis of the tricuspid valve secondary to MSSA. Patient is on nafcillin and tolerating it well. She clinically looks much improved today. Plan is to take her in the next couple of days to the OR for lateral approach debridement of the tricuspid valve. Will continue to trach status of her blood cultures as well as CBC and chemistries. Plan: 1. Continue IV nafcillin at present dose. 2. Will likely wait until after surgery for follow-up blood cultures. 3. Follow clinical course. 10/28/18 15:29 Subjective: Patient is resting in her hospital room. She is ambulatory to the bathroom and feeling much better. She is breathing comfortably. Apparently tolerating the nafcillin without issue. No problems with rash. Objective: Nafcillin # 1 Vital Signs Temp Pulse Resp BP Pulse Ox 37.7 C 112 H 24 H 99/59 L 96 10/28/18 12:00 10/28/18 14:00 10/28/18 14:00 10/28/18 14:00 10/28/18 14:00 Laboratory Results 10/28/18 04:55 10/28/18 04:55 10/27/18 10/28/18 10/29/18 05:59 05:59 05:59 Intake Total 2500 2575 Output Total 1750 5300 Balance 750 -2725 - Physical Exam General Appearance: WD/WN, alert, no apparent distress, thin, non-toxic Respiratory: lungs clear, normal breath sounds, No respiratory distress Cardiac/Chest: regular rate, rhythm, tachycardia, No diastolic murmur, No systolic murmur Skin: normal color, warm/dry, No rash Neuro/Psych: alert, normal mood/affect, oriented x 3 ICD10 Worksheet Patient Problems: Problems Problem Status Onset IV drug user Acute Pneumonia Acute Sepsis Acute Tachycardia Acute Abscess Acute Anemia Acute Narcotic abuse Acute Psychosis Acute Ventral hernia Acute
[2018-10-28] MEDS: ONDANSETRON 4 MG/2 ML VIAL IVP PRN (16:22)
[2018-10-28] MEDS: QUEtiapine FUMARATE 50 MG TAB PO SCH (19:34)
[2018-10-28] MEDS: ZOLPIDEM TARTRATE 5 MG TAB PO SCH (19:35)
[2018-10-28] MEDS: clonazePAM 1 MG TAB PO PRN (19:35)
[2018-10-28] MEDS ORDERED: POTASSIUM CL 20 MEQ TAB PO ONE (20:00)
[2018-10-29] MEDS: HYDROmorphONE/DILAUDID 4 MG TAB PO PRN ×5 (00:11→19:27)
[2018-10-29] MEDS: oxyCODONE IR 5 MG TAB PO PRN ×6 (00:38→22:01)
[2018-10-29] MEDS: ACETAMINOPHEN 325 MG TAB PO PRN (00:40)
[2018-10-29] MEDS: NAFCILLIN SODIUM 2 GM in D5W 100 ML IV SCH ×7 (02:59→23:02)
[2018-10-29] MEDS: ONDANSETRON 4 MG/2 ML VIAL IVP PRN ×3 (06:29→19:09)
[2018-10-29] MEDS: LOPERAMIDE HCL 2 MG CAP PO PRN ×5 (07:35→17:53)
[2018-10-29] MEDS: clonazePAM 1 MG TAB PO PRN ×2 (08:31→19:27)
[2018-10-29] MEDS ORDERED: FUROSEMIDE 40 MG/4 ML VIAL IVP ONE ×2 (08:48→23:28)
--- NOTE | 2018-10-29 08:59 | PDINTPN ---
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 Pain better tolerated. Objective: Vital Signs Temp Pulse Resp BP Pulse Ox 37.3 C 107 H 24 H 116/63 96 10/29/18 08:00 10/29/18 08:00 10/29/18 08:00 10/29/18 08:00 10/29/18 08:00 Laboratory Results 10/28/18 04:55 10/29/18 05:30 10/28/18 10/29/18 10/30/18 05:59 05:59 05:59 Intake Total 2575 1907 Output Total 5300 Balance -2725 1907 PT 17.2 SEC (12.0-15.0) H 10/28/18 04:55 INR 1.39 (0.83-1.16) H 10/28/18 04:55 - Time Spent With Patient Time Spent With Patient: 35 min of time spent with patient, over 1/2 involved coordination of care or counseling. Case discussed with nursing Physical Exam - Physical Exam General Appearance: alert, no apparent distress EENT: PERRL/EOMI Neck: non-tender Respiratory: chest non-tender, rhonchi (Scattered), No wheezing Cardiac/Chest: normal peripheral pulses, regular rate, rhythm Peripheral Pulses: 2+: carotid (R), carotid (L), femoral (R), femoral (L), dorsalis-pedis (R), dorsalis-pedis (L) Abdomen: normal bowel sounds, non-tender, soft Pelvic Exam: deferred Rectal: deferred Skin: normal color, warm/dry Extremities: other Neuro/Psych: alert ICD10 Worksheet Patient Problems: Problems Problem Status Onset IV drug user Acute Pneumonia Acute Sepsis Acute Tachycardia Acute Abscess Acute Anemia Acute Narcotic abuse Acute Psychosis Acute Ventral hernia Acute
[2018-10-29] MEDS: POTASSIUM Cl (KCl) 50 ML IV SCH ×4 (09:19→21:00)
[2018-10-29] MEDS: guaiFENesin 200 MG/10 ML UDL PO PRN ×3 (09:36→22:01)
[2018-10-29] MEDS ORDERED: PNEUMOCOCCAL 0.5ML VACCINE VIAL (PNEUMOVAX 23) IM ONE (09:54)
[2018-10-29] MEDS ORDERED: IOPAMIDOL (ISOVUE-300) 100 ML BTL ONE (10:52)
[2018-10-29] MEDS: SODIUM HYPOCHLORITE (DAKINS 1/4 STR) 473 ML BTL TP PRN ×2 (11:00→19:14)
[2018-10-29] MEDS ORDERED: FUROSEMIDE 40 MG/4 ML VIAL ONE (12:01)
[2018-10-29] MEDS ORDERED: NS 1,000 ML IV ONE (12:11)
--- NOTE | 2018-10-29 13:22 | HOSPPROG ---
Hospitalist Progress Note Assessment/Plan: 23 yo F w IVDU, h/o sternal osteo here w sepsis, mssa bacteremia, TV endocarditis, wrist abscess. sepsis: 2/2 MSSA bacteremia from IVDU tachycardia, leukocytosis, source arm abscess: seen by ortho, already draining TV endocarditis: w septic embolis to lungs continue naf seen by CT surgery w plans fro valve replacement this week AHRF: 2/2 septic emboli continue 02 rec limiting lasix anemia: transfused 1 unit iron studies c/w chronic disease anxiety: continue klonopin proph: scd's dispo: icu, critically ill Subjective: case d/w dr cooper Objective: Vital Signs Temp Pulse Resp BP Pulse Ox 37.5 C 101 H 29 H 109/65 96 10/29/18 12:00 10/29/18 12:00 10/29/18 12:00 10/29/18 12:00 10/29/18 12:00 Laboratory Results 10/28/18 04:55 10/29/18 05:30 10/28/18 10/29/18 10/30/18 05:59 05:59 05:59 Intake Total 2575 1907 Output Total 5300 Balance -2725 1907 PT 17.2 SEC (12.0-15.0) H 10/28/18 04:55 INR 1.39 (0.83-1.16) H 10/28/18 04:55 - Physical Exam Constitutional: no apparent distress, appears nourished Eyes: PERRL, anicteric sclera Ears, Nose, Mouth, Throat: moist mucous membranes, hearing normal Cardiovascular: regular rate and rhythym, No no murmur, rub, or gallop Respiratory: no respiratory distress, other (diffuse rhonchi), No no rales or rhonchi Gastrointestinal: normoactive bowel sounds, soft, non-tender abdomen Genitourinary: no bladder fullness, No silva in urethra Skin: warm Musculoskeletal: other (L wrist improved from yesterday. R wrist w small ballotable area that is non tender, not warm) Neurologic: AAOx3 ICD10 Worksheet Patient Problems: Problems Problem Status Onset IV drug user Acute Pneumonia Acute Sepsis Acute Tachycardia Acute Abscess Acute Anemia Acute Narcotic abuse Acute Psychosis Acute Ventral hernia Acute
--- NOTE | 2018-10-29 15:00 | PCMIDPN ---
Assessment/Plan: Assessment: Right-sided endocarditis of the tricuspid valve secondary to MSSA. Patient is on nafcillin and tolerating it well apart from ongoing diarrhea. She clinically continues to look much improved. Plan is to go to the OR tomorrow for lateral approach debridement of the tricuspid valve. Will continue to track status of her blood cultures as well as CBC and chemistries. Plan: 1. Continue IV nafcillin at present dose. 2. Will likely wait until after surgery for follow-up blood cultures. 3. Follow clinical course. 10/28/18 15:29 10/29/18 14:56 Subjective: Patient is continuing to do well. She is having continued loose stools however. No fevers or chills. Objective: Nafcillin # 2 Vital Signs Temp Pulse Resp BP Pulse Ox 37.5 C 111 H 25 H 112/59 L 3 L 10/29/18 12:00 10/29/18 14:00 10/29/18 14:00 10/29/18 14:00 10/29/18 14:00 Microbiology 10/29/18 11:30 Gastrointestinal Tract Panel (PCR) - Final Stool No Organism Detected By Pcr Laboratory Results 10/28/18 04:55 10/29/18 05:30 10/28/18 10/29/18 10/30/18 05:59 05:59 05:59 Intake Total 0115 1907 Output Total 5300 Balance -8981 1907 - Physical Exam General Appearance: WD/WN, alert, no apparent distress, non-toxic Respiratory: lungs clear, normal breath sounds, No respiratory distress Cardiac/Chest: regular rate, rhythm, No tachycardia Extremities: non-tender, normal inspection Skin: normal color, warm/dry, No rash Neuro/Psych: alert, normal mood/affect, oriented x 3 ICD10 Worksheet Patient Problems: Problems Problem Status Onset IV drug user Acute Pneumonia Acute Sepsis Acute Tachycardia Acute Abscess Acute Anemia Acute Narcotic abuse Acute Psychosis Acute Ventral hernia Acute
[2018-10-29] MEDS ORDERED: CHLORHEXIDINE GLUC HIBICLENS 118 ML BTL TP ONE (17:16)
[2018-10-29] MEDS ORDERED: LOPERAMIDE HCL 1 MG/5 ML UDL PO ONE (19:11)
[2018-10-29] MEDS ORDERED: LOPERAMIDE HCL 1 MG/5 ML UDL ONE (19:24)
[2018-10-29] MEDS ORDERED: CHLORHEXIDINE GLUC HIBICLENS 118 ML BTL TP SCH (21:00)
[2018-10-29] MEDS: ZOLPIDEM TARTRATE 5 MG TAB PO SCH (22:00)
[2018-10-29] MEDS: QUEtiapine FUMARATE 50 MG TAB PO SCH (22:00)
[2018-10-29] MEDS: LOPERAMIDE HCL 2 MG CAP PO SCH (22:01)
[2018-10-30] MEDS: POTASSIUM Cl (KCl) 50 ML IV SCH (01:01)
[2018-10-30] MEDS: HYDROmorphONE/DILAUDID 4 MG TAB PO PRN ×2 (02:06→11:19)
[2018-10-30] MEDS: NAFCILLIN SODIUM 2 GM in D5W 100 ML IV SCH ×6 (02:06→23:00)
[2018-10-30] MEDS: LOPERAMIDE HCL 2 MG CAP PO SCH ×6 (02:06→22:43)
[2018-10-30] MEDS: ACETAMINOPHEN 325 MG TAB PO PRN (02:07)
[2018-10-30] MEDS: guaiFENesin 200 MG/10 ML UDL PO PRN ×3 (02:08→10:43)
[2018-10-30] MEDS ORDERED: FUROSEMIDE 40 MG/4 ML VIAL IVP ONE (06:15)
[2018-10-30] MEDS: oxyCODONE IR 5 MG TAB PO PRN ×2 (06:20→14:06)
[2018-10-30 06:32] LABS: PLATELET COUNT 248 10^3/uL (150-400)
[2018-10-30] MEDS ORDERED: POTASSIUM Cl (KCl) 50 ML IV ONE (07:30)
[2018-10-30] MEDS: clonazePAM 1 MG TAB PO PRN (08:15)
[2018-10-30] MEDS: SODIUM HYPOCHLORITE (DAKINS 1/4 STR) 473 ML BTL TP PRN (09:46)
--- NOTE | 2018-10-30 09:59 | PDINTPN ---
Wharf Worker Progress Note Assessment/Plan: ASSESSMENT 23-year-old female with recurrent IV drug use and history of sternal osteomyelitis 02/2018 now with persistent MSSA bacteremia, tricuspid valve endocarditis and septic emboli # Persistent MSSA bacteremia # Septic emboli - lungs, wrist # tricuspid valve endocarditis # Acute hypoxemic respiratory failure # anemia requiring PRBC transfusion # anxiety # diarrhea, abx associated, no e/o cdiff # IVDU # severe sepsis PLAN # continue nafcillin # to OR for valve replacement this afternoon # declines rehab for IVDU # monitor for s/sx of w/d # Feeding - NPO # Analgesia APAP, oxycodone # Sedation propofol # Thromboprophylaxis - SQ hep hold for OR # Head of bed elevated # Ulcer prophylaxis - NA # Glucose SSI # Skin wound care for UE abscesses # Delirium - delirium precautions CX Data 10/26 BCx with MSSA bacteremia IMAGING 10/29/18 CT chest Patchy bilateral airspace consolidations with numerous ill-defined pulmonary nodules with interval an increase in size. 3 cm layering right pleural effusion and small left pleural effusion. Reactive lymphadenopathy. PICC in place with tip in SVC. 10/30/18 15:32 Subjective: No events overnight. Still with ongoing diarrhea. No new headaches no new vision changes, no new leg swelling, no fevers. Objective: Vital Signs Temp Pulse Resp BP Pulse Ox 37.1 C 101 H 29 H 98/63 L 97 10/30/18 08:00 10/30/18 08:00 10/30/18 08:00 10/30/18 08:00 10/30/18 08:00 Microbiology 10/29/18 11:30 Gastrointestinal Tract Panel (PCR) - Final Stool No Organism Detected By Pcr Laboratory Results 10/30/18 06:15 10/30/18 06:15 10/29/18 10/30/18 10/31/18 05:59 05:59 05:59 Intake Total 1907 2334 Output Total 1000 Balance 1907 1334 PT 17.2 SEC (12.0-15.0) H 10/28/18 04:55 INR 1.39 (0.83-1.16) H 10/28/18 04:55 I reviewed interpreted patient's radiographic images. Physical Exam - Physical Exam General Appearance: alert, mild distress EENT: PERRL/EOMI, normal ENT inspection Neck: full range of motion Respiratory: rhonchi, other (decreased breath sounds in bilateral bases) Cardiac/Chest: tachycardia, other (Visible sternal defect present.) Pelvic Exam: deferred Rectal: deferred Back: Normal inspection Skin: normal color, warm/dry Extremities: other (Wrist abscess site status post I&D. Bandaged.) Neuro/Psych: no motor/sensory deficits, alert, oriented x 3, other (Flat affect) ICD10 Worksheet Patient Problems: Problems Problem Status Onset IV drug user Acute Pneumonia Acute Sepsis Acute Tachycardia Acute Abscess Acute Anemia Acute Narcotic abuse Acute Psychosis Acute Ventral hernia Acute
[2018-10-30] MEDS ORDERED: PROPOFOL 200 MG/20 ML VIAL ONE (10:35)
[2018-10-30] MEDS ORDERED: LORazepam 2 MG/ML INJ IVP ONE (10:56)
--- NOTE | 2018-10-30 10:58 | HOSPPROG ---
Hospitalist Progress Note Assessment/Plan: 23 yo F w IVDU, h/o sternal osteo here w sepsis, mssa bacteremia, TV endocarditis, wrist abscess. sepsis: 2/2 MSSA bacteremia from IVDU tachycardia, leukocytosis, source arm abscess: seen by ortho, already draining TV endocarditis: w septic embolis to lungs continue naf seen by CT surgery w plans fro valve replacement this week AHRF: 2/2 septic emboli continue 02 rec limiting lasix anemia: transfused 1 unit iron studies c/w chronic disease anxiety: continue klonopin proph: scd's dispo: icu, Subjective: case d/w Dr Wang. very anxious this AM Objective: Vital Signs Temp Pulse Resp BP Pulse Ox 37.1 C 101 H 29 H 98/63 L 97 10/30/18 08:00 10/30/18 08:00 10/30/18 08:00 10/30/18 08:00 10/30/18 08:00 Microbiology 10/29/18 11:30 Gastrointestinal Tract Panel (PCR) - Final Stool No Organism Detected By Pcr Laboratory Results 10/30/18 06:15 10/30/18 06:15 10/29/18 10/30/18 10/31/18 05:59 05:59 05:59 Intake Total 1907 2334 Output Total 1000 Balance 1907 1334 PT 17.2 SEC (12.0-15.0) H 10/28/18 04:55 INR 1.39 (0.83-1.16) H 10/28/18 04:55 - Physical Exam Constitutional: no apparent distress, appears nourished Eyes: PERRL, anicteric sclera Ears, Nose, Mouth, Throat: moist mucous membranes, hearing normal Cardiovascular: systolic murmur, tachycardia Respiratory: no respiratory distress, other (difuse crackles) Gastrointestinal: normoactive bowel sounds Genitourinary: No silva in urethra Skin: warm Musculoskeletal: full muscle strength ICD10 Worksheet Patient Problems: Problems Problem Status Onset IV drug user Acute Pneumonia Acute Sepsis Acute Tachycardia Acute Abscess Acute Anemia Acute Narcotic abuse Acute Psychosis Acute Ventral hernia Acute
[2018-10-30] MEDS ORDERED: niCARdipine/NACL 200 ML IV ONE (12:00)
[2018-10-30] MEDS ORDERED: CITRATE DEXTROSE SOLN 500 ML BAG MISC ONE (12:00)
[2018-10-30] MEDS ORDERED: NOREPINEPHRINE BITARTRATE 16 MG in NS 250 ML IV ONE (12:00)
[2018-10-30] MEDS ORDERED: MANNITOL 25% 12.5 GM/50 ML VIAL IVP ONE (12:00)
[2018-10-30] MEDS ORDERED: AMINOCAPROIC ACID 5 GM/20 ML VIAL IV ONE (12:00)
[2018-10-30] MEDS ORDERED: CARDIOPLEGIC SOLUTION 1,052.8 ML PF ONE (12:00)
[2018-10-30] MEDS ORDERED: NS 1,000 ML IV ONE (12:00)
[2018-10-30] MEDS ORDERED: MUPIROCIN 2% 22 GM OINT NS ONE (12:00)
[2018-10-30] MEDS ORDERED: PHENYLEPHRINE HCL 50 MG in NS 250 ML IV ONE (12:00)
[2018-10-30] MEDS ORDERED: INSULIN REGULAR HUMAN 100 UNIT in NS 100 ML IV ONE (12:00)
--- NOTE | 2018-10-30 13:41 | PCMIDPN ---
Assessment/Plan: 1. Tricuspid valve endocarditis/septic pulmonary emboli secondary to MSSA: Patient is going to the operating room for valve replacement today. Continue nafcillin as is; repeat liver function tests in the morning. No evidence of rash. Patient will need PICC replaced at some point moving forward. 2. Subcutaneous abscesses left upper extremity: Apparently these are resolving. Patient did not want me to remove dressings today. 3. Heroin abuse: Patient has never used Suboxone. She is not interested in his treatment program , and would like to go back to live with her mother in [place]. Subjective: Patient is extremely anxious about her upcoming surgery. Having some diarrhea. Objective: Nafcillin 2 g IV q.4 hours day 3 T-max 37.7 degrees Vital Signs Temp Pulse Resp BP Pulse Ox 37.2 C 99 35 H 110/61 95 10/30/18 12:00 10/30/18 12:00 10/30/18 12:00 10/30/18 12:00 10/30/18 12:00 Microbiology 10/29/18 11:30 Gastrointestinal Tract Panel (PCR) - Final Stool No Organism Detected By Pcr Laboratory Results 10/30/18 06:15 10/30/18 06:15 10/29/18 10/30/18 10/31/18 05:59 05:59 05:59 Intake Total 1907 2334 Output Total 1000 Balance 1907 1334 Blood cultures October 26 all 4 bottles with MSSA, oxacillin GOPAL less than 0.25 - Physical Exam General Appearance: cachetic, other (Tachypneic) EENT: No thrush Respiratory: other (Poor inspiratory effort) Cardiac/Chest: tachycardia, other (Sternal defect visible secondary to previous sternal osteomyelitis, well-healed.) Extremities: other (PICC line right upper extremity, visible track pinedo on her forearms. Patient has some bandages on her left upper extremity a previous abscess sites I did not take down at her request.) Abdomen: non-tender, soft Skin: No embolic lesions Neuro/Psych: no motor/sensory deficits, oriented x 3 ICD10 Worksheet Patient Problems: Problems Problem Status Onset IV drug user Acute Pneumonia Acute Sepsis Acute Tachycardia Acute Abscess Acute Anemia Acute Narcotic abuse Acute Psychosis Acute Ventral hernia Acute
[2018-10-30] MEDS ORDERED: CALCIUM CHLORIDE 1 GM/10 ML INJ ONE ×3 (13:49→13:55)
[2018-10-30] MEDS ORDERED: PROTAMINE SULFATE 50 MG/5 ML VIAL IVP ONE (13:49)
[2018-10-30] MEDS ORDERED: MILRINONE/DEXTROSE/100 ML BAG IV ONE (13:49)
[2018-10-30] MEDS ORDERED: niCARdipine/NACL/200 ML BAG IV ONE (13:50)
[2018-10-30] MEDS ORDERED: HEPARIN 10,000 UNIT/10 ML MDV (1,000 UNIT/ML) ONE ×2 (13:50→13:53)
[2018-10-30] MEDS ORDERED: DOPamine/DEXTROSE 400 MG/250 ML BAG IV ONE (13:50)
[2018-10-30] MEDS ORDERED: NA BICARBONATE 50 MEQ/50 ML VIAL ONE (13:50)
[2018-10-30] MEDS ORDERED: NITROGLYCERIN/D5W 50 MG/250 ML BOTTLE IV ONE (13:51)
[2018-10-30] MEDS ORDERED: AMIODARONE HCL 150 MG/3 ML VIAL ONE (13:51)
[2018-10-30] MEDS ORDERED: ceFAZolin 1 GM VIAL ONE (13:51)
[2018-10-30] MEDS ORDERED: ADENOSINE 6 MG/2 ML VIAL ONE (13:51)
[2018-10-30] MEDS ORDERED: SODIUM BICARBONATE 50 MEQ/50 ML SYR ONE (13:52)
[2018-10-30] MEDS ORDERED: ALBUMIN 5% 250 ML BOTTLE IV ONE ×4 (13:53→22:57)
[2018-10-30] MEDS ORDERED: LIDOCAINE 2% 100 MG/5 ML SYR ONE (13:53)
[2018-10-30] MEDS ORDERED: methylPREDNISolone SOD SUCC 1 GM/8 ML VIAL ONE (13:54)
[2018-10-30] MEDS ORDERED: CITRATE DEXTROSE SOLN 500 ML BAG ONE (13:54)
[2018-10-30] MEDS ORDERED: MAGNESIUM SULFATE 1 GM/2 ML VIAL ONE (13:54)
--- NOTE | 2018-10-30 14:24 | PDHPUP ---
History & Physical Update H&P update statement: This history and physical update is based on an assessment of the patient which was completed after admission or registration (within 24 hours), but prior to the surgery/procedure. H&P update: no change in patient's condition since H&P completed
[2018-10-30] MEDS: ONDANSETRON 4 MG/2 ML VIAL IVP PRN (14:56)
[2018-10-30] MEDS ORDERED: MIDAZOLAM 2 MG/2 ML VIAL IVP ONE (15:00)
--- NOTE | 2018-10-30 15:00 | PDANEPAE ---
ANE History of Present Illness 23 yo for TVR SBE s/p IVDA ANE Past Medical History - Cardiovascular History Hx Hypertension: No Hx Arrhythmias: No Hx Chest Pain: No Hx Coronary Artery / Peripheral Vascular Disease: No Hx CHF / Valvular Disease: Yes Hx Palpitations: No - Pulmonary History Hx Asthma/Reactive Airway Disease: Yes Hx Oxygen in Use at Home: No Hx Sleep Apnea: No Sleep Apnea Screening Result - Last Documented: Negative - Endocrine History Hx Diabetes: No - Chronic Pain History Chronic Pain: Yes ANE Review of Systems Review of Systems: - Exercise capacity METS (RN): 4 METS ANE Patient History - Allergies Allergies/Adverse Reactions: No Known Allergies Allergy (Verified 10/26/18 15:42) - Home Medications Home medications: home medication list seen and reviewed Home Medications: Amphet Asp and D/Amphet [Adderall 20 mg (*)] 20 mg PO DAILY PRN 10/26/18 [Last Taken Unknown] QUEtiapine FUMARATE [Seroquel 50 mg (*)] 50 mg PO HS 10/26/18 [Last Taken Unknown] Sumatriptan Succinate [Imitrex] 100 mg PO DAILY PRN 10/26/18 [Last Taken Unknown ] Zolpidem Tartrate [Ambien 5MG (*)] 5 mg PO HS 10/26/18 [Last Taken Unknown] clonazePAM [klonoPIN (*)] 1 mg PO BID PRN 10/26/18 [Last Taken Unknown] oxyCODONE IR [Oxycodone Ir (*)] 10 mg PO HS 10/26/18 [Last Taken Unknown] - NPO status NPO Status: no food or drink >8 hours NPO Since - Liquids (Date): 10/30/18 NPO Since - Liquids (Time): 00:01 NPO Since - Solids (Date): 10/29/18 NPO Since - Solids (Time): 22:00 - Smoking Hx Smoking Status: Never smoked - Alcohol Use Alcohol Use: None ANE Labs/Vital Signs - Labs Result Diagrams: 10/30/18 06:15 10/30/18 06:15 - Vital Signs Blood Pressure: 106/6 Heart Rate: 101 Respiratory Rate: 32 O2 Sat (%): 96 Height: 5 ft 7 in Weight: 60.1 kg ANE Physical Exam - Airway Neck exam: FROM Mallampati Score: Class 2 Mouth exam: normal dental/mouth exam - Pulmonary Pulmonary: no respiratory distress - Cardiovascular Cardiovascular: regular rate and rhythym - ASA Status ASA Status: IV ANE Anesthesia Plan Anesthesia Plan: general endotracheal anesthesia Lines/Monitors: arterial line, central line, LUIS FERNANDO
[2018-10-30] MEDS ORDERED: SUFentanil 250 MCG/5 ML AMP ONE (15:09)
[2018-10-30] MEDS ORDERED: PROPOFOL/EMULSION 500 MG/50 ML BOTTLE IV ONE ×2 (15:09→17:36)
[2018-10-30] MEDS ORDERED: MIDAZOLAM 2 MG/2 ML VIAL ONE (15:10)
--- NOTE | 2018-10-30 17:19 | GCON ---
DATE OF CONSULTATION: 10/30/2018 Patient seen at the request of Internal Medicine service with the patient's permission. The mother w as present during the visit. IMPRESSION: 1. 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 2. Status post recent chest wall debridement with nonunion of the sternum and subsequent skin graft following and staphylococcal infection of the chest, currently healed, but unstable. 3. Intravenous drug abuse history. 4. Hepatitis B positive. 5. Severe anemia. RECOMMENDATIONS: This unfortunate young female is known to me, I was involved in a sternal debrideme nt; however, she signed herself out and went to the [facility] for subsequent completion of antibioti cs and skin grafting of her chest. She now presents with advanced endocarditis picture with culture positive blood with methicillin-resistant Staphylococcus aureus in multiple blood cultures. On echo, she was noted to have a large tricuspid vegetation with moderate tricuspid insufficiency, and on CAT scan, she has multiple septic pulmonary emboli throughout her lungs. She has been medically stabili zed and should undergo tricuspid valve debridement with potential repair and potential replacement. I spent a great deal of time with the mother and the patient. They were both cooperative and quite a ppreciative. They understand that she is at high risk for respiratory complications, including inabi lity to oxygenate necessitating artificial measures, including a ventilator and potential ECMO or lawrence e other support mechanism. They also understand she is at risk for not surviving this procedure due to her overwhelmingly pulmonary involvement. They accept those risks and appreciate our attention to the care. Initially, we thought we would approach from the right chest; however, given her sternal nonunion and dehiscence in a transverse fashion, I will perform a standard sternotomy and try to richmond nstruct her chest wall deformity and stabilize that to assist with postoperative recovery. This may necessitate a mesh versus something to close the large sternal defect where the sternum was completel y absent. I advised her that this is at increased risk for infection; however, the important thing i s to get her through the initial operation and if we had to we could remove the mesh and just place a wound VAC and subsequent muscle flap down the road. Obviously, putting a mesh in somebody who is ba cteremic is fraught with complications; however, we have to get her through the operation and have a stable chest wall in order to help her get through the compromising pulmonary situation. I did advis e them that if she reinfected due to intravenous drug abuse, that I would not offer her a second surg vish. They are understanding of that. Their intention is to return to [place] with her family and seek our inpatient rehab when she is discharged from our institution. CHIEF COMPLAINT: Shortness of breath. 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 She has a history of opiate and benzodiazepine dependence and anxiety, and had 5 to 6 days of shortness of br eath with a nonproductive cough, muscle aches, chills, etc. She was seen in the ER with a heart rate of 130, clearly septic with evidence of left forearm abscess, which was draining. CT-A of her chest was performed which was negative for PE but showed bilateral rounded consolidations, some with cavit ations. She was admitted to the hospital on IV vancomycin. Echo revealed a large tricuspid vegetati on with moderate tricuspid insufficiency. MEDICAL HISTORY: As documented in the chart. SOCIAL HISTORY: She denies cigarette. She denies alcohol. She denies using drugs since 03/15, when she previously used heroin. PHYSICAL EXAMINATION: GENERAL: She appears less toxic than on admission. She is very cooperative, pleasant, and appreciative and involved in her discussion and decisions. Her mother is at her bedsid e and supports all her decisions. This is a slender young female lying supine in bed. CHEST: She h as an obvious chest wall deformity in the midsternum with a 3 x 3 cm round defect in the midsternum a nd dehiscence and nonunion of the approximately 3rd or 4th intercostal spaces on both sides. She als o has a skin graft over obvious cardiac tissue, which you can visualize cardiac activity beneath the skin graft. She is mildly tachypneic. HEENT: Normocephalic. PERRLA. EOMI. NECK: Without bruit. HEART: Rate is regular with murmurs across precordium. LUNGS: Diminished bilaterally. ABDOMEN: Scaphoid, nontender. Bowel sounds are active. RECTAL/GENITAL: Exams were deferred. NEUROLOGIC: Grossly intact. VASCULAR: Pedal pulses 2+, symmetrical. /[id number]/MODL
[2018-10-30] MEDS ORDERED: MEPERIDINE 25 MG/0.5 ML AMP IVP PRN (19:34)
[2018-10-30] MEDS ORDERED: fentaNYL 100 MCG/2 ML INJ IVP PRN (19:34)
[2018-10-30] MEDS ORDERED: METOCLOPRAMIDE 10 MG/2 ML VIAL IVP PRN (19:34)
[2018-10-30] MEDS ORDERED: ACETAMINOPHEN 650 MG SUPP PR PRN (19:34)
[2018-10-30] MEDS ORDERED: MAGNESIUM HYDROXIDE 30 ML UDCUP PO PRN (19:34)
[2018-10-30] MEDS ORDERED: POLYETHYLENE GLYCOL 3350 17 GM PKT PO PRN (19:34)
[2018-10-30] MEDS ORDERED: D50W 25 GM/50 ML SYR IVP PRN (19:34)
[2018-10-30] MEDS ORDERED: SODIUM CL NASAL 45 ML BTL EACHNARE PRN (19:34)
[2018-10-30] MEDS ORDERED: CEPACOL LOZENGE PO PRN (19:34)
[2018-10-30] MEDS ORDERED: NS 1,000 ML IV SCH (19:45)
[2018-10-30] MEDS ORDERED: FAMOTIDINE 20 MG/NACL 50 ML IV ONE (20:00)
[2018-10-30] MEDS ORDERED: INSULIN REGULAR HUMAN 100 UNIT in NS 100 ML IV SCH (20:00)
[2018-10-30] MEDS: ALBUMIN 5% 250 ML IV PRN ×2 (20:09→21:38)
[2018-10-30] MEDS: POTASSIUM Cl (KCl) 50 ML IV PRN ×2 (20:12→20:44)
[2018-10-30] MEDS ORDERED: FAMOTIDINE 20 MG/2 ML SDV IVP ONE (21:00)
[2018-10-30] MEDS: CHLORHEXIDINE GLUCONATE 15 ML UDL PO SCH (21:09)
[2018-10-30] MEDS: ZOLPIDEM TARTRATE 5 MG TAB PO SCH (21:09)
[2018-10-30] MEDS: MUPIROCIN 2% 22 GM OINT NS SCH (21:09)
[2018-10-30] MEDS: QUEtiapine FUMARATE 50 MG TAB PO SCH (21:10)
[2018-10-30] MEDS ORDERED: PROPOFOL/EMULSION 1,000 MG/100 ML BOTTLE IV ONE (21:23)
--- NOTE | 2018-10-30 21:36 | GOP ---
DATE OF OPERATION: 10/30/2018 SURGEON: Nixon Soni DO PRIMARY TEACHER: Bailey Martino, PAC. ANESTHESIA: Cipriano Escobedo MD. PREOPERATIVE DIAGNOSIS: 1. Tricuspid valve endocarditis with septic pulmonary emboli, moderate tricuspid insufficiency. 2. Previous sternal osteomyelitis with transverse nonunion at approximately the 3rd intercostal spac e with subsequent skin graft and visual cardiac structures through the skin graft. POSTOPERATIVE DIAGNOSIS: PROCEDURE PERFORMED: 1. Complex tricuspid valve repair and debridement with autologous pericardial reconstruction of the anterior leaflet. 2. Extensive debridement and removal of skin grafting with reconstruction of the chest wall and bila teral muscle flap closure. 3. A pulmonic valve exploration. FINDINGS: Patient presented as per admitting history and physical. Please review. She was consented for surgery, brought to the operating room. Because of her previous transverse irregular infected a bscess cavity that had been skin grafted with exposure of the mediastinum through the skin graft visu ally, the entire skin graft was taken down. The chest wall on both sides was mobilized out to the an terior axillary line in a sub mammary position. She had very small pectoralis muscles and those were not touched. We then freshened up the skin edges and did a Richard off sternotomy incision down to the xiphoid process from the transverse incision inferiorly. This was all mobilized before heparinizatio n. I then was able to open the sternum safely without affecting mediastinal structures. A retractor was placed. The pericardium was opened. The patient was heparinized, cannulated with bicaval cannulae, and a bypass was begun. Del Nido solu tion was administered antegrade. After cross-clamping the aorta, the right atrium was opened with a transverse atriotomy. There were heavy bulky vegetations on the medial portion of the anterior leafl et coming down toward the septal leaflet. Basically the medial half of the anterior leaflet was dest royed. This was excised. The remainder of the anterior septal and posterior leaflet were intact. T his left approximately a 3 cm defect along the anulus. We debrided beneath the anulus in the outflow tract extensively for a large vegetation and debrided muscle down to healthy viable muscle. We then copiously irrigated. I then took a segment of the patient's pericardium and reconstructed that defect, converting it to ba sically a 2 leaflet valve. Distention of the ventricle revealed minimal leakage. Because the anulus was not dilated, no ring was placed. Also because of her IV drug abuse. I then closed the right at rium. We then opened the pulmonary artery just distal to the pulmonic valve for a questionable veget ation seen on echo. Inspection of the valve revealed no obvious echo. The valve appeared pristine. This was closed with a 4-0 Prolene. The cross-clamp was removed with suction on the ascending aorti c vent in Trendelenburg. No air was identified in the left ventricle. The patient's spontaneous car diac activity resumed. She was weaned from bypass. Transesophageal echo revealed [id number] tric uspid insufficiency without evidence of obstruction. I felt that given her IV drug abuse history wisam t this was preferable to replacing her valve. Heparin was reversed with protamine. The cannula was removed and oversewn. I then the 3rd intercostal space laterally. The sternum was missing in the 3rd intercostal space transversely, and there was a large defect in the sternum. I then deta ched the intercostal muscles on the top of the 4th rib and with sternal wires reapproximated the 3rd and 4th rib slightly closer together to help eliminate the sternal defect. I then did a limited Deacon csek on both sides in that area and then approximated the sternum with interrupted sternal wires. Th is almost completely eliminated. What was left was maybe a 1 x 1 cm defect in the midsternum covered by sternal wire. I then mobilized further the subpectoral tissues, reapproximated them across the s ternum, and closed the wound completely covering the small defect in the mid sternum with soft tissue s. The edges were debrided back so no remaining skin graft would be incorporated into the skin incis ions. A 19 Gabino was placed in that subcutaneous tissues in the muscle flap area to a bulb. 2 Gabino drains had been placed in the mediastinum. The patient was returned to ICU in critical condition. DESCRIPTION OF PROCEDURE: /[id number]/MODL
[2018-10-30] MEDS: PROPOFOL/EMULSION 100 ML IV SCH (21:38)
[2018-10-30] MEDS: DEXMEDETOMIDINE HCL 400 MCG in NS 100 ML IV SCH (22:59)
[2018-10-30] MEDS ORDERED: ALBUMIN 5% 250 ML IV ONE ×2 (23:30)
[2018-10-30] MEDS ORDERED: NOREPINEPHRINE BITARTRATE 16 MG in NS 250 ML IV SCH (23:30)
[2018-10-31] MEDS: LOPERAMIDE HCL 2 MG CAP PO SCH ×6 (02:02→21:53)
[2018-10-31] MEDS: NAFCILLIN SODIUM 2 GM in D5W 100 ML IV SCH ×6 (02:04→21:53)
[2018-10-31] MEDS: PROPOFOL/EMULSION 100 ML IV SCH (05:05)
[2018-10-31 06:06] LABS: PLATELET COUNT 188 10^3/uL (150-400)
[2018-10-31] MEDS: KETOROLAC 15 MG/1 ML SDV IVP SCH ×4 (06:10→17:41)
--- NOTE | 2018-10-31 07:23 | SOAPPROG ---
SOAP Progress Note Assessment/Plan: Assessment: POD#1 Median sternotomy with removal of skin graft, bilateral flap mobilization, and chest wall reconstruction; complex tricuspid valve debridement and repair incl pericardial patch reconstruction of anteroseptal leaflets (see pic paper chart); pulmonic valve exploration *RUE PICC (tip trimmed back intraop to improve TV visualization) TV endocarditis with lobulated vegetation, septic emboli, persistent bacteremia and moderate TR - Debrided and repaired to minimize prosthetic material. Await cx results. Abx (and secondary anti-diarrheals) per ID. Antithrombotic prophylaxis with ASA alone. 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 Started on low dose levo overnoc for pressor support. 3 liters volume removed on CPB. Care with fluid management. Sternal deformity - s/p partial sternectomy and skin grafting for prior abscess and osteo. Chest wall remodeled and stabilized with stainless steel wire. Sternal precautions x 6 weeks. Acute hypoxemic respiratory failure - Maintained on ventilatory support overnoc. Excellent sats on 40% FIO2. Extubation as per pulm - appears imminent. Acute on chronic anemia - Stable s/p 2u PRBC. No evidence active bleeding. Addtl PRBC prn hemodynamic support. VTE prophylaxis w SCDs for now. Hx polysubstance abuse with IVDA - Not interested in treatment program. Supportive care per multidisciplinary team. Pain control with multimodal analgesia. Plan: Limited echo to assess TV fx. Extubation per pulm. CTs to bulb suction after extubation. Wean levo to SBP > 90. PRBC prn assistance levo wean. 10/31/18 07:12 Subjective: Awake and alert on the vent, motioning for tube removal Objective: Vital Signs Temp Pulse Resp BP Pulse Ox 37.1 C 73 24 H 92/54 L 100 10/31/18 04:00 10/31/18 06:00 10/31/18 06:00 10/31/18 06:00 10/31/18 06:00 Microbiology 10/30/18 17:28 Gram Stain - Final Heart - Tissue Laboratory Results 10/31/18 05:30 10/31/18 05:30 10/30/18 10/31/18 11/01/18 05:59 05:59 05:59 Intake Total 2334 2036 Output Total 1000 1078 Balance 1334 958 PT 17.2 SEC (12.0-15.0) H 10/28/18 04:55 INR 1.39 (0.83-1.16) H 10/28/18 04:55 Levo 2 mcg for SBP > 90. HR and rhythm stable. Min CTOP. Physical Exam - Physical Exam General Appearance: alert, mild distress (clearly wants ETT out) Respiratory: lungs clear (grossly), other (Blakes x 2 to pleurovac, thin serosang drainage, no air leak; flap magali to bulb suction, serosang drainage) Cardiac/Chest: regular rate, rhythm, other (Sternotomy CDI) Abdomen: soft Skin: warm/dry Extremities: swelling (1+ gen) ICD10 Worksheet Patient Problems: Problems Problem Status Onset Acute blood loss anemia Acute Endocarditis of tricuspid valve Acute IV drug user Acute Pneumonia Acute Sepsis Acute Status post tricuspid valve repair Acute ~10/30/18 Tachycardia Acute s/p sternal reconstruction Acute ~10/30/18 Sternal deformity Chronic Abscess Acute Anemia Acute Narcotic abuse Acute Psychosis Acute Ventral hernia Acute
--- NOTE | 2018-10-31 08:47 | PCMIDPN ---
Assessment/Plan: # MSSA TV endocarditis with pulmonary emboli, OR yesterday for tricuspid valve repair. No valve was placed. Gram stain on heart tissue positive from OR. Blood cultures from 10/30 persistently positive, but this is not unexpected, surgery was 10/30. --hold off another day or 2 for repeating blood cultures --continue high-dose nafcillin --will need 6 week IV abx from negative blood cultures # mild rash on chest wall appears consistent with contact reaction from tape. # History of MRSA sternal osteomyelitis: Contact isolation. Chest wall skin graft debridement and chest wall reconstruction was performed yesterday in the OR. Medications Nafcillin 2 g IV Q 4h, #4 Chest x-ray: Personally reviewed by me with obvious nodular infiltrate consistent with septic emboli bilaterally Microbiology 10/30 blood cultures 2 sets: MSSA 10/30 heart tissue: 3+ GPC 10/26 blood cultures 2 sets MSSA Subjective: Patient requesting ET tube to be removed Echo was being performed at bedside and reviewed with windshield technician and CT surgery team, moderate tricuspid regurgitation remains. Objective: Vital Signs Temp Pulse Resp BP Pulse Ox 36.8 C 76 38 H 100/54 L 97 10/31/18 08:00 10/31/18 08:00 10/31/18 08:00 10/31/18 08:00 10/31/18 08:00 Microbiology 10/30/18 17:28 Gram Stain - Final Heart - Tissue Laboratory Results 10/31/18 05:30 10/31/18 05:30 10/30/18 10/31/18 11/01/18 05:59 05:59 05:59 Intake Total 2334 2036 Output Total 1000 1078 75 Balance 1334 958 -75 Gen: young woman NAD on ventilator HEENT ETT in place Cardiovascular : regular rate, systolic murmur Chest: MP eruption in shape of prior taping, limited to chest wall, midline T shaped incision no purulence; Multiple Chest tubes, coarse breath sounds bilaterally oDra SPICER PICC c/d/i Multiple track pinedo, no rash - Time Spent With Patient Time Spent with Patient: greater than 35 minutes Time Spent with Patient: Greater than 35 minutes spent on this patients care, greater than 50% of time spent counseling, educating, and coordinating care regarding the above mentioned plan. ICD10 Worksheet Patient Problems: Problems Problem Status Onset Acute blood loss anemia Acute Endocarditis of tricuspid valve Acute IV drug user Acute Pneumonia Acute Sepsis Acute Status post tricuspid valve repair Acute ~10/30/18 Tachycardia Acute s/p sternal reconstruction Acute ~10/30/18 Sternal deformity Chronic Abscess Acute Anemia Acute Narcotic abuse Acute Psychosis Acute Ventral hernia Acute
[2018-10-31] MEDS: ASPIRIN 81 MG CHEWABLE TAB PO SCH (08:55)
[2018-10-31] MEDS: CHLORHEXIDINE GLUCONATE 15 ML UDL PO SCH (08:55)
[2018-10-31] MEDS ORDERED: FUROSEMIDE 20 MG/2 ML VIAL IVP ONE (09:21)
--- NOTE | 2018-10-31 09:42 | POSTANESTH ---
Post Anesthetic Evaluation Cardiovascular Status: Normal, Stable Respiratory Status: Other, See Comment Level of Consciousness/Mental Status: Moderately Sleepy Pain Control: Adequate, Prn Tx Ordered Nausea/Vomiting Control: Adequate, Prn Tx Ordered Complications Possibly Related to Anesthesia: None Noted (on vent, no apparent comp geta)
[2018-10-31] MEDS: MUPIROCIN 2% 22 GM OINT NS SCH ×2 (09:46→21:52)
[2018-10-31] MEDS: clonazePAM 1 MG TAB PO PRN ×3 (11:40→20:32)
[2018-10-31] MEDS: PARoxetine HCL 20 MG TAB PO SCH (11:40)
--- NOTE | 2018-10-31 12:23 | ECHO ---
[email or web address] [address] Main: [phone] Fax: Transthoracic Echocardiogram Name: DARRON POPE MR#: [id number] Study Date: 10/31/2018 Study Time: 08:39 AM Date of : 1995 Age: 23 year(s) Height: 170.2 cm (67 in.) Weight: 59.87 kg (132 lb.) BSA: 1.69 m2 Gender: Female Examination: Limited Echo Indication: LTD to assess s/p annular debridement and septal leaflet reconstruction;assess TV function Image Quality: Adequate Contrast: Requested by: Bailey Martino BP: 105 mmHg/61 mmHg Heart Rate: Rhythm: Indication: LTD to assess s/p annular debridement and septal leaflet reconstruction;assess TV function Procedure Staff Flake Drier: Yvette Farooq [facility] Reading Physician: Xander Cruz MD Requesting Provider: Conclusions: The septal leaflet is thickened and appears to have reduced mobility. There are two jets of moderate tricuspid regurgitation without evidence for significant pulmonary hypertension. There is no significant gradient across the tricuspid valve (2mmHg). Measurements: Chambers Valvular Assessment AV/MV Valvular Assessment TV/PV Normal Normal Normal Name Value Range Name Value Range Name Value Range IVSd (2D): 0.6 cm (0.6 cm-1.1 TR Vmax: 2.43 mm/s ( - ) cm) TR PGmax: 24 mmHg ( - ) LVDd (2D): 4.6 cm (3.9 cm-5.3 cm) LVDs (2D): 2.8 cm (2.1 cm-4 cm) LVPWd (2D): 0.7 cm ( - ) LVEF (2D): 70 (>=54 %) Continued Measurements: Findings: Tricuspid Valve: The septal leaflet is thickened and appears to have reduced mobility. There are two jets of moderate tricuspid regurgitation without evidence for significant pulmonary hypertension. There is no significant gradient across the tricuspid valve (2mmHg). Patient: DARRON POPE Study Date: 10/31/2018 Page 1 of 2 08:39 AM (No Signature Object) Patient: DARRON POPE Study Date: 10/31/2018 Page 2 of 2 08:39 AM [id number]
[2018-10-31] MEDS: DEXMEDETOMIDINE HCL 400 MCG in NS 100 ML IV SCH ×2 (13:01→20:30)
--- NOTE | 2018-10-31 13:17 | PDINTPN ---
Oil Recovery Unit Operator Progress Note Assessment/Plan: ASSESSMENT 23-year-old female with recurrent IV drug use and history of sternal osteomyelitis 02/2018 now with persistent MSSA bacteremia, tricuspid valve endocarditis and septic emboli status post complicated TVR and anterior chest wall reconstruction by Dr. Jada quintana 10/30/2018 # Persistent MSSA bacteremia # Septic emboli - lungs, wrist # tricuspid valve endocarditis status post TVR 10/30/2018 # Acute hypoxemic respiratory failure # anemia requiring PRBC transfusion # anxiety # diarrhea, abx associated, no e/o cdiff # IVDU # severe sepsis PLAN # continue lung protective ventilation, wean to extubate # continue nafcillin # will need to remove PICC and eventually right IJ CVC due to bacteremia # start Paxil 20 mg p. O. Daily for anxiety to minimize benzo requirements # declines rehab for IVDU # monitor for s/sx of w/d # Feeding - NPO # Analgesia APAP, oxycodone # Sedation propofol # Thromboprophylaxis - SQ hep # Head of bed elevated # Ulcer prophylaxis - NA # Glucose SSI # Skin wound care for UE abscesses # Delirium - delirium precautions Patient is critically ill due to persistent bacteremia, severe sepsis, respiratory failure and life-threatening organ dysfunction. Total critical care time spent with patient 70 min CX Data 10/30/2018 MSSA 12/26 BCx with MSSA bacteremia IMAGING 10/29/18 CT chest Patchy bilateral airspace consolidations with numerous ill-defined pulmonary nodules with interval an increase in size. 3 cm layering right pleural effusion and small left pleural effusion. Reactive lymphadenopathy. PICC in place with tip in SVC. 10/30/18 15:32 10/31/18 13:13 Subjective: Went to OR yesterday for complex tricuspid valve repair. Remained intubated overnight for hypoxemic respiratory failure and pain control. Unable to obtain review of systems secondary to patient's mental status Objective: Vital Signs Temp Pulse Resp BP Pulse Ox 36.8 C 72 24 H 100/62 98 10/31/18 12:00 10/31/18 13:00 10/31/18 13:00 10/31/18 13:00 10/31/18 13:00 Microbiology 10/30/18 17:28 Gram Stain - Final Heart - Tissue Laboratory Results 10/31/18 05:30 10/31/18 05:30 12/02/1210/31/18 11/01/18 05:59 05:59 05:59 Intake Total 2334 2036 Output Total 1000 1078 865 Balance 1334 958 -865 PT 17.2 SEC (12.0-15.0) H 10/28/18 04:55 INR 1.39 (0.83-1.16) H 10/28/18 04:55 I reviewed interpreted patient's radiographic images well as formal radiology reads. 05/31/2018 chest [id number] to bipolar consolidations and nodularity with small bilateral effusions. ET tube 2-3 cm above yu. ICD10 Worksheet Patient Problems: Problems Problem Status Onset Acute blood loss anemia Acute Endocarditis of tricuspid valve Acute IV drug user Acute Pneumonia Acute Sepsis Acute Status post tricuspid valve repair Acute ~10/30/18 Tachycardia Acute s/p sternal reconstruction Acute ~10/30/18 Sternal deformity Chronic Abscess Acute Anemia Acute Narcotic abuse Acute Psychosis Acute Ventral hernia Acute
[2018-10-31] MEDS: HEPARIN 5,000 UNIT/0.5 ML INJ SC SCH ×2 (14:37→21:52)
--- NOTE | 2018-10-31 14:48 | HOSPPROG ---
Hospitalist Progress Note Assessment/Plan: 23 yo F w IVDU, h/o sternal osteo here w sepsis, mssa bacteremia, TV endocarditis, wrist abscess. sepsis: 2/2 MSSA bacteremia from IVDU tachycardia, leukocytosis, source arm abscess: seen by ortho, already draining bacteremia: repeat blood cx in 1-2 days TV endocarditis: w septic embolis to lungs continue naf valve debridement and repair yesterday AHRF: 2/2 septic emboli continue 02 rec limiting lasix anemia: getting more blood today anxiety: increase klonopin to tid prn paxil started this AM proph: scd's dispo: icu Subjective: anxious. case d/w dr rodriguez. blood cx remain + Objective: Vital Signs Temp Pulse Resp BP Pulse Ox 36.8 C 74 20 112/68 99 10/31/18 12:00 10/31/18 14:00 10/31/18 14:00 10/31/18 14:00 10/31/18 14:00 Microbiology 10/30/18 17:28 Gram Stain - Final Heart - Tissue Laboratory Results 10/31/18 05:30 10/31/18 05:30 10/30/18 10/31/18 11/01/18 05:59 05:59 05:59 Intake Total 2334 2036 Output Total 1000 1078 865 Balance 1334 958 -865 PT 17.2 SEC (12.0-15.0) H 10/28/18 04:55 INR 1.39 (0.83-1.16) H 10/28/18 04:55 - Physical Exam Constitutional: no apparent distress, appears nourished Eyes: PERRL, anicteric sclera Ears, Nose, Mouth, Throat: moist mucous membranes, hearing normal Cardiovascular: regular rate and rhythym, No no murmur, rub, or gallop Respiratory: no respiratory distress, No no rales or rhonchi Gastrointestinal: normoactive bowel sounds, soft, non-tender abdomen Genitourinary: silva in urethra Skin: warm, normal color Musculoskeletal: full muscle strength, no muscle tenderness Neurologic: AAOx3 Psychiatric: interacting appropriately, No not anxious ICD10 Worksheet Patient Problems: Problems Problem Status Onset Acute blood loss anemia Acute Endocarditis of tricuspid valve Acute IV drug user Acute Pneumonia Acute Sepsis Acute Status post tricuspid valve repair Acute ~10/30/18 Tachycardia Acute s/p sternal reconstruction Acute ~10/30/18 Sternal deformity Chronic Abscess Acute Anemia Acute Narcotic abuse Acute Psychosis Acute Ventral hernia Acute
[2018-10-31] MEDS: oxyCODONE IR 5 MG TAB PO PRN ×2 (16:57→20:32)
[2018-10-31] MEDS: HYDROmorphONE/DILAUDID 4 MG TAB PO PRN ×2 (18:22→22:22)
[2018-10-31] MEDS ORDERED: ASPIRIN 81 MG CHEWABLE TAB TUBE PRN (19:34)
[2018-10-31] MEDS: ACETAMINOPHEN 325 MG TAB PO PRN (20:27)
[2018-10-31] MEDS: guaiFENesin 200 MG/10 ML UDL PO PRN (20:32)
[2018-10-31] MEDS ORDERED: SENNOSIDES/DOCUSATE SODIUM TAB PO PRN (21:00)
[2018-10-31] MEDS: QUEtiapine FUMARATE 50 MG TAB PO SCH (21:52)
[2018-10-31] MEDS: ZOLPIDEM TARTRATE 5 MG TAB PO SCH (21:53)
[2018-11-01] MEDS: KETOROLAC 15 MG/1 ML SDV IVP SCH ×3 (00:47→12:39)
[2018-11-01] MEDS: oxyCODONE IR 5 MG TAB PO PRN ×3 (00:52→14:29)
[2018-11-01] MEDS ORDERED: ACETAMINOPHEN 650 MG SUPP PR PRN (02:08)
[2018-11-01] MEDS: LOPERAMIDE HCL 2 MG CAP PO SCH ×4 (02:25→13:20)
[2018-11-01] MEDS: DEXMEDETOMIDINE HCL 400 MCG in NS 100 ML IV SCH (02:25)
[2018-11-01] MEDS: NAFCILLIN SODIUM 2 GM in D5W 100 ML IV SCH ×5 (02:25→14:29)
[2018-11-01] MEDS: HYDROmorphONE/DILAUDID 4 MG TAB PO PRN ×3 (02:25→16:48)
[2018-11-01] MEDS: guaiFENesin 200 MG/10 ML UDL PO PRN ×4 (06:06→23:45)
[2018-11-01] MEDS: ACETAMINOPHEN 325 MG TAB PO PRN (06:07)
[2018-11-01] MEDS: HEPARIN 5,000 UNIT/0.5 ML INJ SC SCH ×3 (06:08→23:05)
--- NOTE | 2018-11-01 06:45 | SOAPPROG ---
SOAP Progress Note Assessment/Plan: Assessment: POD#2 Median sternotomy with removal of skin graft, bilateral flap mobilization, and chest wall reconstruction; extensive tricuspid valve debridement, complex tricuspid valve repair w autologous pericardial patch reconstruction of anteroseptal leaflets (see pic paper chart); pulmonic valve exploration (neg for veg) *RUE PICC (tip trimmed back intraop to improve TV visualization) MSSA TV endocarditis with lobulated vegetation, septic emboli, and persistent bacteremia - TV debrided and repaired to minimize prosthetic material. Mild to moderate residual TR accepted. Await cx results. Abx (secondary anti-diarrheals ), timing of blood cxs, and PICC exchange per ID. Antithrombotic prophylaxis with ASA alone. Surveillance echos per Dr Soni. 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 No prolonged pressor support. 3 liters volume removed on CPB. Moderate residual overload well tolerated. Diuresis as tolerated. Sternal deformity - s/p partial sternectomy and skin grafting for prior abscess and osteo. Chest wall remodeled and stabilized with stainless steel wire. Sternal precautions x 6 weeks. Acute hypoxemic respiratory failure - Maintained on ventilatory support evening of surgery. Successfully extubated POD#1. Min suppl O2 needs. Acute on chronic anemia - Stable s/p 1u PRBC preop and 4u PRBC postop. No evidence active bleeding. VTE prophylaxis w SCDs for now. Hx polysubstance abuse with IVDA - Not interested in treatment program. Supportive care per multidisciplinary team. Pain control with multimodal analgesia. Plan: Remove crista and RIJ CVC. Consider removal chest tubes later today. Keep flap drain 1 more day. Gentle diuresis. Limited echo in am to reassess TV fx. Consider tx to PCU later today. 11/01/18 06:40 Subjective: Comfortable. Objective: Vital Signs Temp Pulse Resp BP Pulse Ox 36.6 C 71 36 H 93/56 L 95 10/31/18 20:00 11/01/18 02:00 11/01/18 02:00 11/01/18 02:00 11/01/18 02:00 Microbiology 10/30/18 17:28 Gram Stain - Final Heart - Tissue Laboratory Results 10/31/18 05:30 10/31/18 17:28 10/31/18 11/01/18 11/02/18 05:59 05:59 05:59 Intake Total 2036 1714 Output Total 1078 1365 Balance 958 349 PT 17.2 SEC (12.0-15.0) H 10/28/18 04:55 INR 1.39 (0.83-1.16) H 10/28/18 04:55 VSS off levo Precedex for sleep No diarrhea overnoc CTOP at removal criteria RHONDA drain still a bit high for removal Await am labs. TV veg + MSSA. Physical Exam - Physical Exam General Appearance: alert, no apparent distress Respiratory: lungs clear (grossly), other (Blakes to pleurovac, serosang drainage; RHONDA to bulb suction, serosang drainage) Cardiac/Chest: regular rate, rhythm, other (sternotomy CDI) Abdomen: non-tender, soft Skin: warm/dry Extremities: swelling (trace) ICD10 Worksheet Patient Problems: Problems Problem Status Onset Acute blood loss anemia Acute Endocarditis of tricuspid valve Acute IV drug user Acute Pneumonia Acute Sepsis Acute Status post tricuspid valve repair Acute ~10/30/18 Tachycardia Acute s/p sternal reconstruction Acute ~10/30/18 Sternal deformity Chronic Abscess Acute Anemia Acute Narcotic abuse Acute Psychosis Acute Ventral hernia Acute
[2018-11-01 08:27] LABS: PLATELET COUNT 304 10^3/uL (150-400)
[2018-11-01] MEDS: MUPIROCIN 2% 22 GM OINT NS SCH ×2 (09:02→23:04)
[2018-11-01] MEDS: PARoxetine HCL 20 MG TAB PO SCH (09:04)
[2018-11-01] MEDS: ASPIRIN 81 MG CHEWABLE TAB PO SCH (09:04)
[2018-11-01] MEDS: clonazePAM 1 MG TAB PO PRN ×2 (10:26→14:29)
[2018-11-01] MEDS ORDERED: POTASSIUM CL 20 MEQ/15 ML UDCUP PO ONE (10:33)
[2018-11-01] MEDS: POTASSIUM Cl (KCl) 50 ML IV SCH (11:49)
--- NOTE | 2018-11-01 14:25 | PCMIDPN ---
Assessment/Plan: # MSSA TV endocarditis with pulmonary emboli, OR 09/30 for tricuspid valve repair. No valve was placed. Heart tissue cultures are positive for MSSA. Blood cultures from 10/30 persistently positive, but this is not unexpected, surgery was 10/30. --check blood cx tomorrow --feels like naf giving severe diarrhea, okay to change to cefazolin and monitor GI symptom # mild rash on chest wall appears consistent with contact reaction from tape, improved. # History of MRSA sternal osteomyelitis: Contact isolation. Chest wall skin graft debridement and chest wall reconstruction was performed Medications Nafcillin 2 g IV Q 4h, #5 Microbiology 10/30 blood cultures 2 sets: MSSA 10/30 heart tissue: 3+ GPC: MSSA 10/26 blood cultures 2 sets MSSA Subjective: Patient wants to leave the hospital in the next day or 2, hopeful IV antibiotics via infusion center. Discussed that this may not be feasible in light of the severity of her infection and the type of antibiotics that she needs. 5 liquid small stools daily that she feels is due to the nafcillin Expected postoperative sternal pain Objective: Vital Signs Temp Pulse Resp BP Pulse Ox 36.8 C 75 33 H 91/66 L 95 11/01/18 08:00 11/01/18 09:00 11/01/18 09:00 11/01/18 09:00 11/01/18 09:00 Microbiology 10/30/18 17:28 Gram Stain - Final Heart - Tissue Laboratory Results 11/01/18 07:20 11/01/18 07:20 10/31/18 11/01/18 11/02/18 05:59 05:59 05:59 Intake Total 2036 2937 Output Total 1078 1715 100 Balance 958 1222 -100 - Physical Exam General Appearance: alert, no apparent distress, thin, non-toxic EENT: No scleral icterus Respiratory: other (Shallow inspiratory effort; a chest tubes in place mid chest ; midline T shaped sternotomy scar healing well. Maculopapular eruption improving associated with contact dermatitis from tape), No accessory muscle use Neck: supple Cardiac/Chest: regular rate, rhythm, systolic murmur (Faint) Extremities: No pedal edema Abdomen: non-tender, soft Skin: signs of IVDA Neuro/Psych: alert, normal mood/affect, oriented x 3 - Time Spent With Patient Time Spent with Patient: greater than 35 minutes Time Spent with Patient: Greater than 35 minutes spent on this patients care, greater than 50% of time spent counseling, educating, and coordinating care regarding the above mentioned plan. ICD10 Worksheet Patient Problems: Problems Problem Status Onset Acute blood loss anemia Acute Endocarditis of tricuspid valve Acute IV drug user Acute Pneumonia Acute Sepsis Acute Status post tricuspid valve repair Acute ~10/30/18 Tachycardia Acute s/p sternal reconstruction Acute ~10/30/18 Sternal deformity Chronic Abscess Acute Anemia Acute Narcotic abuse Acute Psychosis Acute Ventral hernia Acute
--- NOTE | 2018-11-01 14:46 | ASMTCMCOM ---
CM Note CM Note Notes: Patient is anxious to leave the hospital. Spoke with Dr. Poole who says patient needs IV ABX and at least a week in the hospital to get treatment. Dr. Poole discussed this with the patient and tried to convey the importance of her staying in the hospital and finishing treatment. Patient needed outpatient infusion services at last d/c. Current d/c plan remains TBD. CM will follow. Date Signed: 11/01/2018 02:46 PM Electronically Signed By:Griselda Parkinson LCSW
[2018-11-01] MEDS: ceFAZolin 2 GM/DEXTROSE 100 ML IV SCH ×2 (15:23→22:58)
--- NOTE | 2018-11-01 16:12 | PDINTPN ---
Paperhanger And Painter Progress Note Assessment/Plan: ASSESSMENT 23-year-old female with recurrent IV drug use and history of sternal osteomyelitis 02/2018 now with persistent MSSA bacteremia, tricuspid valve endocarditis and septic emboli status post complicated TVR and anterior chest wall reconstruction by Dr. Jada quintana 10/30/2018 # Persistent MSSA bacteremia # Septic emboli - lungs, wrist # tricuspid valve endocarditis status post TVR 10/30/2018 # Acute hypoxemic respiratory failure # anemia requiring PRBC transfusion # anxiety # diarrhea, abx associated, no e/o cdiff # IVDU # severe sepsis PLAN # continue lung protective ventilation, wean to extubate # nafcillin changed to cefazolin 11/01/2018 per ID due to diarrhea # after cultures negative will need to replace PICC # start Paxil 20 mg p. O. Daily for anxiety to minimize benzo requirements # declines rehab for IVDU # monitor for s/sx of w/d # Feeding - NPO # Analgesia APAP, oxycodone # Sedation Ambien at night # Thromboprophylaxis - SQ hep # Head of bed elevated # Ulcer prophylaxis - NA # Glucose SSI # Skin wound care for UE abscesses # Delirium - delirium precautions CX Data 10/30/2018 MSSA 12/26 BCx MSSA IMAGING 10/29/18 CT chest Patchy bilateral airspace consolidations with numerous ill-defined pulmonary nodules with interval an increase in size. 3 cm layering right pleural effusion and small left pleural effusion. Reactive lymphadenopathy. PICC in place with tip in SVC. Subjective: Extubated yesterday, Precedex wean down, still complaining of anxiety, at the paroxetine, complained of mild headache mild chest pain but improving, no leg swelling. Also complains of ongoing diarrhea but minimal abdominal pain Objective: Vital Signs Temp Pulse Resp BP Pulse Ox 36.3 C 101 H 40 H 119/70 3 L 11/01/18 12:00 11/01/18 14:00 11/01/18 14:00 11/01/18 14:00 11/01/18 14:00 Microbiology 10/30/18 17:28 Gram Stain - Final Heart - Tissue Laboratory Results 11/01/18 07:20 11/01/18 07:20 10/31/18 11/01/18 11/02/18 05:59 05:59 05:59 Intake Total 6 2937 Output Total 1078 1715 100 Balance 958 1222 -100 PT 17.2 SEC (12.0-15.0) H 10/28/18 04:55 INR 1.39 (0.83-1.16) H 10/28/18 04:55 Physical Exam - Physical Exam General Appearance: alert EENT: PERRL/EOMI, normal ENT inspection Neck: full range of motion, supple Respiratory: other (Course bibasilar breath sounds, no wheezing, no accessory muscle use) Cardiac/Chest: normal peripheral pulses, regular rate, rhythm, other (Incision sites clean dry and intact) Back: Normal inspection Skin: other (Wrist abscess bandage. Skin pale otherwise no rash) Neuro/Psych: no motor/sensory deficits, alert, normal mood/affect, oriented x 3 ICD10 Worksheet Patient Problems: Problems Problem Status Onset Acute blood loss anemia Acute Endocarditis of tricuspid valve Acute IV drug user Acute Pneumonia Acute Sepsis Acute Status post tricuspid valve repair Acute ~10/30/18 Tachycardia Acute s/p sternal reconstruction Acute ~10/30/18 Sternal deformity Chronic Abscess Acute Anemia Acute Narcotic abuse Acute Psychosis Acute Ventral hernia Acute
--- NOTE | 2018-11-01 16:39 | HOSPPROG ---
Hospitalist Progress Note Assessment/Plan: 23 yo F w IVDU, h/o sternal osteo here w sepsis, mssa bacteremia, TV endocarditis, wrist abscess. sepsis: 2/2 MSSA bacteremia from IVDU tachycardia, leukocytosis, source arm abscess: seen by ortho, already draining bacteremia: repeat blood cx in 1-2 days TV endocarditis: w septic embolis to lungs continue Naf valve debridement and repair on 10/30 AHRF: 2/2 septic emboli continue 02 rec limiting lasix anemia: monitoring closely, s/p PRBC transfusion anxiety: increase klonopin to tid prn paxil started this AM diarrhea due to abx, no e/o C-Diff proph: Heparin Plan: cont Nafcillin cont post op care per Surgery cont PT Subjective: no cp or sob. working with PT Objective: Vital Signs Temp Pulse Resp BP Pulse Ox 36.3 C 101 H 40 H 119/70 3 L 11/01/18 12:00 11/01/18 14:00 11/01/18 14:00 11/01/18 14:00 11/01/18 14:00 Microbiology 10/30/18 17:28 Gram Stain - Final Heart - Tissue Laboratory Results 11/01/18 07:20 11/01/18 07:20 10/31/18 11/01/18 11/02/18 05:59 05:59 05:59 Intake Total 2036 2937 Output Total 1078 1715 100 Balance 958 1222 -100 PT 17.2 SEC (12.0-15.0) H 10/28/18 04:55 INR 1.39 (0.83-1.16) H 10/28/18 04:55 - Physical Exam Constitutional: no apparent distress Eyes: PERRL Ears, Nose, Mouth, Throat: moist mucous membranes, hearing normal Cardiovascular: regular rate and rhythym, No edema Respiratory: no respiratory distress, no rales or rhonchi, clear to auscultation Gastrointestinal: normoactive bowel sounds Skin: warm Neurologic: AAOx3 Psychiatric: interacting appropriately, not anxious, not encephalopathic Lymph, Heme, Immunologic: No petechiae ICD10 Worksheet Patient Problems: Problems Problem Status Onset Acute blood loss anemia Acute Endocarditis of tricuspid valve Acute IV drug user Acute Pneumonia Acute Sepsis Acute Status post tricuspid valve repair Acute ~10/30/18 Tachycardia Acute s/p sternal reconstruction Acute ~10/30/18 Sternal deformity Chronic Abscess Acute Anemia Acute Narcotic abuse Acute Psychosis Acute Ventral hernia Acute
[2018-11-01] MEDS ORDERED: FUROSEMIDE 20 MG/2 ML VIAL IVP ONE (16:45)
[2018-11-01] MEDS: LOPERAMIDE HCL 2 MG CAP PO PRN ×2 (16:46→23:45)
--- NOTE | 2018-11-01 17:48 | WOCRNPDOC ---
WOCRN Advanced Assessment Note - Skin Integrity Problem, Advanced Assess Left Lower Arm Abscess Dressing Type: Allevyn Life, Packing Dressing Description: Clean/Dry, Intact Closure Description: Not Approximated Exudate Amount: Minimal Exudate Color: Reddish/Yellow Exudate Characteristic(s): Serosanguinous Integumentary Issue Intervention: Dressing Changed [place] Wound Tissue: Blanching, Swollen, Painful/Tender [place] Wound Swelling: Mild Wound Bed Color: [place], Red Wound Bed Constitution: Red/[place] - Non Granular Tissue Site Measurement - Head-to-Toe Length X Width X Depth (cm): 0.8x0.4x0.4, undermining (wound is on anatomical posterior forearm), extends approximately 0.3 from 8 oclock to 10 oclock Skin Integrity Problem Comment: Discussed patient plan of care with WARREN Wilson. Wound bed flushed with normal saline, gauze used to pat dry. due to depth of wound and undermining, complete visualization of wound bed difficult. Visible wound bed is red/pink. Undermining presents from 8 to 10 oclock (correct anatomical viewpoint of posterior lower arm). Wound care orders updated. Wound care will follow.
[2018-11-01] MEDS: KETOROLAC 30 MG/1 ML SDV IVP SCH ×2 (18:38→23:52)
[2018-11-01] MEDS: ONDANSETRON 4 MG/2 ML VIAL IVP PRN (18:45)
[2018-11-01] MEDS ORDERED: ceFAZolin 2 GM/DEXTROSE 100 ML IV SCH (22:00)
[2018-11-01] MEDS: ZOLPIDEM TARTRATE 5 MG TAB PO SCH (23:04)
[2018-11-01] MEDS: QUEtiapine FUMARATE 50 MG TAB PO SCH (23:04)
[2018-11-02] MEDS: guaiFENesin 200 MG/10 ML UDL PO PRN ×3 (05:00→20:35)
[2018-11-02] MEDS: ACETAMINOPHEN 325 MG TAB PO PRN (05:20)
[2018-11-02] MEDS: ceFAZolin 2 GM/DEXTROSE 100 ML IV SCH ×3 (06:15→21:56)
[2018-11-02] MEDS: KETOROLAC 30 MG/1 ML SDV IVP SCH ×4 (06:15→23:43)
[2018-11-02] MEDS: LOPERAMIDE HCL 2 MG CAP PO PRN ×2 (06:15→20:36)
[2018-11-02] MEDS: HEPARIN 5,000 UNIT/0.5 ML INJ SC SCH ×3 (06:15→21:56)
--- NOTE | 2018-11-02 06:24 | SOAPPROG ---
SOAP Progress Note Assessment/Plan: POD#3: Median sternotomy with removal of skin graft, bilateral flap mobilization , and chest wall reconstruction; extensive tricuspid valve debridement, complex tricuspid valve repair w autologous pericardial patch reconstruction of anteroseptal leaflets, pulmonic valve exploration (neg for veg) MSSA TV endocarditis with lobulated vegetation, septic emboli, and persistent bacteremia s/p TV debridement/repair. and repaired. ABX as per ID. Antithrombotic prophylaxis with ASA alone. Sternal deformity - s/p partial sternectomy and skin grafting for prior abscess and osteo. Chest wall remodeled and stabilized with stainless steel wire. Sternal precautions x 6 weeks. Acute on chronic anemia - Stable s/p 1u PRBC preop and 4u PRBC postop. No evidence active bleeding. Hx polysubstance abuse with IVDA - pt found somnolent 11/01 and discovered to have had drugs injected into her PICC by a visitor. Pt transferred to ICU for isolation. Hospitalist to be asked for recommendations for ongoing addiction issues. DVT prophylaxis - SCDs/heparin SQ. Disposition - pt will need 6 weeks of IV ABX. Given h/o ongoing drug abuse, pt will need to be closely monitored. Subjective: Pt upset regarding isolation. No other complaints. Objective: Vital Signs Temp Pulse Resp BP Pulse Ox 36.3 C 90 15 91/47 L 100 11/02/18 00:00 11/02/18 04:00 11/02/18 04:00 11/02/18 04:00 11/02/18 04:00 Microbiology 10/30/18 17:28 Gram Stain - Final Heart - Tissue Laboratory Results 11/02/18 05:16 11/02/18 05:16 11/01/18 11/02/18 11/03/18 05:59 05:59 05:59 Intake Total 2937 1048 Output Total 1715 1450 Balance 1222 -402 PT 17.2 SEC (12.0-15.0) H 10/28/18 04:55 INR 1.39 (0.83-1.16) H 10/28/18 04:55 Physical Exam - Physical Exam General Appearance: anxiety EENT: No scleral icterus (R), No scleral icterus (L) Neck: normal inspection Respiratory: No respiratory distress Cardiac/Chest: regular rate, rhythm Abdomen: non-tender, soft, No distended Skin: normal color, warm/dry Extremities: pedal edema Neuro/Psych: no motor/sensory deficits, alert, other (anxious) ICD10 Worksheet Patient Problems: Problems Problem Status Onset Acute blood loss anemia Acute Endocarditis of tricuspid valve Acute IV drug user Acute Pneumonia Acute Sepsis Acute Status post tricuspid valve repair Acute ~10/30/18 Tachycardia Acute s/p sternal reconstruction Acute ~10/30/18 Sternal deformity Chronic Abscess Acute Anemia Acute Narcotic abuse Acute Psychosis Acute Ventral hernia Acute
[2018-11-02] MEDS: ASPIRIN 81 MG CHEWABLE TAB PO SCH (08:08)
[2018-11-02] MEDS: PARoxetine HCL 20 MG TAB PO SCH (08:08)
[2018-11-02] MEDS ORDERED: FUROSEMIDE 20 MG/2 ML VIAL IVP SCH (09:00)
[2018-11-02] MEDS ORDERED: POTASSIUM CL 20 MEQ TAB PO SCH (09:00)
[2018-11-02] MEDS ORDERED: POTASSIUM CL 20 MEQ/15 ML UDCUP PO SCH (09:00)
--- NOTE | 2018-11-02 13:02 | ECHO ---
[email or web address] [address] [address] Main: [phone] Fax: Transthoracic Echocardiogram Name: DARRON POPE MR#: [id number] Study Date: 11/02/2018 Study Time: 08:22 AM Date of : 1995 Age: 23 year(s) Height: 170.2 cm (67 in.) Weight: 65.77 kg (145 lb.) BSA: 1.76 m2 Gender: Female Examination: Limited Echo Indication: Assess s/p annular debridement and septal leaflet reconstruction, Asses TV Image Quality: Contrast: Requested by: Bailey Martino BP: 108 mmHg/64 mmHg Heart Rate: Rhythm: Indication: Assess s/p annular debridement and septal leaflet reconstruction, Asses TV Procedure Staff Acoustic Intelligence Specialist: López Gaines RDCS Reading Physician: Xander Cruz MD Requesting Provider: Conclusions: The septal tricuspid leaflet is thickened and appears to have reduced mobility. There are 2 jets of moderate tricuspid regurgitation, the septal leaflet jet is eccentric with no evidence of significant pulmonary hypertension. There is no significant gradient at 2 mmHg. There is a moderate Left sided pulmonary hypertension. There is normal LV function. . Measurements: Chambers Valvular Assessment AV/MV Valvular Assessment TV/PV Normal Normal Normal Name Value Range Name Value Range Name Value Range TV Vmax: 1.05 m/s (0.3 m/s-0.7 m/s) TV Vmean: 0.60 m/s ( - ) TV PGmax: 4 mmHg ( - ) TV PGmean: 2 mmHg ( - ) TV VTI: 24.20 cm ( - ) TR Vmax: 2.66 mm/s ( - ) TR PGmax: 28 mmHg ( - ) syst. PAP: 33 mmHg ( - ) Continued Measurements: Valvular Assessment TV/PV Name Value CVP (est.): 5 mmHg Findings: Exam Comments: Patient: DARRON POPE Study Date: 11/02/2018 Page 1 of 2 08:22 AM The septal tricuspid leaflet is thickened and appears to have reduced mobility. There are 2 jets of moderate tricuspid regurgitation, the septal leaflet jet is eccentric with no evidence of significant pulmonary hypertension. There is no significant gradient at 2 mmHg. There is a moderate Left sided pulmonary hypertension. There is normal LV function. . (No Signature Object) Patient: DARRON POPE Study Date: 11/02/2018 Page 2 of 2 08:22 AM [id number]
--- NOTE | 2018-11-02 13:17 | HOSPPROG ---
Hospitalist Progress Note Assessment/Plan: 23 yo F w IVDU, h/o sternal osteo here w sepsis, mssa bacteremia, TV endocarditis, wrist abscess. ongoing IV drug use: the pt admits to IV ingestion of Heroin on 11/01 -strict visitor precautions Acute on Chronic Pain Management -start MS Contin -Dilaudid for breakthrough -NO Adjustments to this (morphine equivalents were calculated) -d/w Surgery sepsis: Resolved -2/2 MSSA bacteremia from IVDU tachycardia, leukocytosis, source arm abscess: s/p I&D bacteremia: repeat blood cx today. Monitor for clearance TV endocarditis: w septic embolis to lungs Changed to Ancef due to diarrhea. Will need 6 weeks course likely at the infusion center. Will need to insert and remove IV with each treatment dose ID following valve debridement and repair on 10/30 AHRF: 2/2 septic emboli continue anemia: monitoring closely, s/p PRBC transfusion anxiety: increase klonopin to tid prn paxil started this AM diarrhea due to abx, no e/o C-Diff proph: Heparin Plan: -Keep in ICU for safety -Pain mgmt per above -cont with Diuresis per Surgery. This should help with her cough which she reports is also contributing to her pain Subjective: no cp or sob. admits to Heroin use on 11/02 Objective: Vital Signs Temp Pulse Resp BP Pulse Ox 36.8 C 91 26 H 110/62 97 11/02/18 11:40 11/02/18 11:40 11/02/18 11:40 11/02/18 11:40 11/02/18 11:40 Microbiology 10/30/18 17:28 Gram Stain - Final Heart - Tissue Laboratory Results 11/02/18 05:16 11/02/18 05:16 11/01/18 11/02/18 11/03/18 05:59 05:59 05:59 Intake Total 2937 1048 Output Total 1715 1450 Balance 1222 -402 PT 17.2 SEC (12.0-15.0) H 10/28/18 04:55 INR 1.39 (0.83-1.16) H 10/28/18 04:55 - Physical Exam Constitutional: no apparent distress Eyes: PERRL Ears, Nose, Mouth, Throat: moist mucous membranes, hearing normal Cardiovascular: regular rate and rhythym, No edema Respiratory: reduced air movement Gastrointestinal: normoactive bowel sounds Skin: warm Musculoskeletal: generalized weakness Neurologic: AAOx3 Psychiatric: interacting appropriately, not anxious, not encephalopathic Lymph, Heme, Immunologic: No petechiae ICD10 Worksheet Patient Problems: Problems Problem Status Onset Acute blood loss anemia Acute Endocarditis of tricuspid valve Acute IV drug user Acute Pneumonia Acute Sepsis Acute Status post tricuspid valve repair Acute ~10/30/18 Tachycardia Acute s/p sternal reconstruction Acute ~10/30/18 Sternal deformity Chronic Abscess Acute Anemia Acute Narcotic abuse Acute Psychosis Acute Ventral hernia Acute
[2018-11-02] MEDS ORDERED: HYDROmorphONE/DILAUDID 4 MG TAB PO PRN (13:20)
[2018-11-02] MEDS: morphINE SR 15 MG TAB PO SCH ×2 (14:35→21:56)
[2018-11-02] MEDS: FUROSEMIDE 20 MG TAB PO SCH (14:35)
--- NOTE | 2018-11-02 14:42 | PCMIDPN ---
Assessment/Plan: Assessment/Plan: * MSSA bacteremia with septic pulmonary emboli due to tricuspid valve endocarditis status post tricuspid valve repair: Valve culture also positive for MSSA. Repeat blood cultures obtained earlier today to assess for clearing of bacteremia. Circumstances complicated by patient's ongoing injection drug use including yesterday p.m. in the hospital. Patient states she will not remain in hospital for 6 weeks of IV antibiotics. Discussed with her concept of 1st obtaining clearance of bacteremia prior to further decision making regarding how to achieve long-term antibiotic therapy. She would like to come to the infusion center where a new IV could be placed and removed on a daily basis with continued treatment via daily drug such as daptomycin. In interim, will continue with cefazolin and follow up blood cultures as available. Discussed with patient that PICC line cannot be used for any other purpose than medical care. Discussed with patient that ongoing injection drug use will be associated with high risk of . * Diarrhea: Resolved after discontinuation of nafcillin. 11/02/18 14:39 Subjective: Patient found by staff locked in bathroom last night with drug paraphernalia and open PICC line cap with fluid in PICC line tubing matching fluid in syringe she had. Moved to ICU for this reason. Visitation restrictions in place. Patient states that she cannot stand Hospital for duration of 6 weeks of IV antibiotic therapy. No further diarrhea. Objective: Vital Signs Temp Pulse Resp BP Pulse Ox 36.8 C 91 26 H 110/62 97 11/02/18 11:40 11/02/18 11:40 11/02/18 11:40 11/02/18 11:40 11/02/18 11:40 Microbiology 10/30/18 17:28 Gram Stain - Final Heart - Tissue Laboratory Results 11/02/18 05:16 11/02/18 05:16 11/01/18 11/02/18 11/03/18 05:59 05:59 05:59 Intake Total 2937 1048 Output Total 1715 1450 Balance 1222 -402 Cefazolin # 1 Antibiotics # 6 Heart valve tissue with MSSA Blood cultures 11/02/2018 pending - Physical Exam General Appearance: alert, no apparent distress, non-toxic EENT: No scleral icterus, No thrush, No conjunctival petechiae Respiratory: lungs clear, No respiratory distress Cardiac/Chest: regular rate, rhythm, other (Surgical incisions intact without erythema or drainage) Extremities: inflammation (Left forearm abscess site without active inflammatory change and packed with Hydrofera Blue) Abdomen: non-tender, No distended Skin: No embolic lesions - Line/s RUE PICC Lines: No drainage, No erythema - Time Spent With Patient Time Spent with Patient: greater than 35 minutes Time Spent with Patient: Greater than 35 minutes spent on this patients care, greater than 50% of time spent counseling, educating, and coordinating care regarding the above mentioned plan. ICD10 Worksheet Patient Problems: Problems Problem Status Onset Acute blood loss anemia Acute Endocarditis of tricuspid valve Acute IV drug user Acute Pneumonia Acute Sepsis Acute Status post tricuspid valve repair Acute ~10/30/18 Tachycardia Acute s/p sternal reconstruction Acute ~10/30/18 Sternal deformity Chronic Abscess Acute Anemia Acute Narcotic abuse Acute Psychosis Acute Ventral hernia Acute
[2018-11-02] MEDS: clonazePAM 1 MG TAB PO PRN (15:01)
--- NOTE | 2018-11-02 16:13 | ASMTCMCOM ---
CM Note CM Note Notes: A family meeting was held today with patient's mother, Shanika, Rafael, Spiritual Care, MARIVEL Villalobos and Miriam, Nurse Chainman. Shanika wants her daughter to go straight from the hospital to inpatient A and D rehab care. Discussed patient having "buy-in" and actively participating in her rehab care. Patient historically has not wanted or been interested in rehab. Most rehab programs want their patient's to make the choice to be there. Alcohol and drug resources for the local area were given to Shanika to look over. Shanika did speak of [facility] in [place] as being a program with good outcomes. Shanika understands she and her daughter would have to make the arrangements for her to go there.Another concern is patient not wanting to stay in the hospital for her full course of treatment. Medical detainer was discussed as a possibility if Dr. Soni deems this as an option. A behavioral plan will be written if in fact this becomes a course of treatment to follow. The plan will include boundaries for safety for the patient and staff as well as plans to put into place to help the patient with the length of time she would need to stay. CM can prepare letters for [facility], if the patient would like assistance and will sign a release for us to do so. Shanika, patient's mother, plans to return to [place] this weekend. She will fly patient's cat to her dad's, so the patient does not have to worry about care and people coming and going from her apartment. Shanika will pursue asking Esperanza about other people having keys to Esperanza's apartment. Shanika does not know if Esperanza's father is going to come visit or not. Shanika will give us notice if she learns of Esperanza's father coming to visit. Currently the d/c plan remains TBD depending on the choices of the patient. Patient was not successful going for outpatient infusion for abx the last time she left the hospital. CM will follow. Date Signed: 11/02/2018 04:12 PM Electronically Signed By:Griselda Parkinson LCSW
[2018-11-02] MEDS: HYDROmorphONE/DILAUDID 2 MG TAB PO PRN ×2 (16:41→20:35)
[2018-11-02] MEDS ORDERED: POTASSIUM CL 20 MEQ PKT PO ONE (20:00)
[2018-11-02] MEDS: POTASSIUM CL 20 MEQ TAB PO SCH (20:36)
[2018-11-02] MEDS: ZOLPIDEM TARTRATE 5 MG TAB PO SCH (23:42)
[2018-11-03] MEDS: HYDROmorphONE/DILAUDID 2 MG TAB PO PRN ×5 (00:55→23:05)
[2018-11-03] MEDS: guaiFENesin 200 MG/10 ML UDL PO PRN ×5 (01:48→21:53)
[2018-11-03] MEDS: LOPERAMIDE HCL 2 MG CAP PO PRN ×3 (02:16→22:39)
[2018-11-03] MEDS: ACETAMINOPHEN 325 MG TAB PO PRN ×2 (04:05→20:18)
[2018-11-03] MEDS: HEPARIN 5,000 UNIT/0.5 ML INJ SC SCH ×3 (05:50→22:42)
[2018-11-03] MEDS: ceFAZolin 2 GM/DEXTROSE 100 ML IV SCH ×3 (05:50→21:57)
[2018-11-03] MEDS: KETOROLAC 30 MG/1 ML SDV IVP SCH (05:50)
[2018-11-03] MEDS ORDERED: KETOROLAC 30 MG/1 ML SDV IVP PRN (06:28)
[2018-11-03] MEDS: POTASSIUM CL 20 MEQ TAB PO SCH ×2 (08:04→20:18)
[2018-11-03] MEDS: ASPIRIN 81 MG CHEWABLE TAB PO SCH (08:04)
[2018-11-03] MEDS: FUROSEMIDE 20 MG TAB PO SCH ×2 (08:04→15:04)
[2018-11-03] MEDS: PARoxetine HCL 20 MG TAB PO SCH (08:04)
[2018-11-03] MEDS: morphINE SR 15 MG TAB PO SCH ×3 (08:04→21:53)
--- NOTE | 2018-11-03 09:40 | SOAPPROG ---
SOAP Progress Note Assessment/Plan: POD#4: Median sternotomy with removal of skin graft, bilateral flap mobilization , and chest wall reconstruction; extensive tricuspid valve debridement, complex tricuspid valve repair w autologous pericardial patch reconstruction of anteroseptal leaflets, pulmonic valve exploration (neg for veg) MSSA TV endocarditis with lobulated vegetation, septic emboli, and persistent bacteremia s/p TV debridement/repair. and repaired. ABX as per ID. Antithrombotic prophylaxis with ASA alone. Sternal deformity - s/p partial sternectomy and skin grafting for prior abscess and osteo. Chest wall remodeled and stabilized with stainless steel wire. Sternal precautions x 6 weeks. Acute on chronic anemia - Stable s/p 1u PRBC preop and 4u PRBC postop. No evidence active bleeding. Hx polysubstance abuse with IVDA - pt found somnolent 11/01 and discovered to have had drugs injected into her PICC by a visitor. Pt transferred to ICU for isolation. Hospitalist to be asked for recommendations for ongoing addiction issues. DVT prophylaxis - SCDs/heparin SQ. Cough - likely multifactorial d/t septic emboli and pulm edema. I/O 1480/970. Up 9 kg. PRN mucinex Disposition Pt requests nightly Ambien, ordered Lasix 20 mg IV once today Pain medication per hospitalist team Subjective: Complains of cough. Requesting home nightly ambien. Objective: Vital Signs Temp Pulse Resp BP Pulse Ox 36.6 C 100 16 126/75 H 94 11/03/18 08:00 11/03/18 08:00 11/03/18 08:00 11/03/18 08:00 11/03/18 08:00 Microbiology 10/30/18 17:28 Gram Stain - Final Heart - Tissue Laboratory Results 11/02/18 05:16 11/03/18 05:45 11/02/18 11/03/18 11/04/18 05:59 05:59 05:59 Intake Total 1048 2701 Output Total 1450 250 75 Balance -402 2451 -75 PT 17.2 SEC (12.0-15.0) H 10/28/18 04:55 INR 1.39 (0.83-1.16) H 10/28/18 04:55 General Appearance: NAD EENT: No scleral icterus (R), No scleral icterus (L) Neck: normal inspection Respiratory: No respiratory distress, occ cough Cardiac/Chest: regular rate, rhythm, incision clean/dry/intact Skin: normal color, warm/dry Extremities: pedal edema ICD10 Worksheet Patient Problems: Problems Problem Status Onset Acute blood loss anemia Acute Endocarditis of tricuspid valve Acute IV drug user Acute Pneumonia Acute Sepsis Acute Status post tricuspid valve repair Acute ~10/30/18 Tachycardia Acute s/p sternal reconstruction Acute ~10/30/18 Sternal deformity Chronic Abscess Acute Anemia Acute Narcotic abuse Acute Psychosis Acute Ventral hernia Acute
--- NOTE | 2018-11-03 09:50 | PCMIDPN ---
Assessment/Plan: # MSSA TV endocarditis with pulmonary emboli, OR 09/30 for tricuspid valve repair. No valve was placed. Heart tissue cultures are positive for MSSA. 11/02 shows clearance of MSSA --continue high dose cefazolin, diarrhea resolved --patient unwilling to stay in hospital for treatment, reminded patient that I am trying to improve her health so that she has holidays to attend in the future --tentatively plan for dc Tuesday. Lean toward ceftriaxone 2gm IV in infusion center as patient with pulmonary emboli and daptomycin without lung penetration --there are 2 small studies that evaluate oral therapy in IVDU with R sided endocarditis, one with Bactrim and one with oral rifampin and ciprofloxacin. Will consider these options if unable to keep going to infusion center. These studies evaluated individual w/o complications and she has many septic pulmonary emboli therefore not the perfect candidate. Will uncover MSSA sensi to Cipro. # PICC line infection w GNR plus known manipulation --clinically stable, adjust abx based on ID --dc PICC line and place IV, patient expressed understanding # Drug use in hospital: specifically discussed that this is illegal and cannot be happening. Patient now w sitter in ICU # History of MRSA sternal osteomyelitis: Contact isolation. Chest wall skin graft debridement and chest wall reconstruction was performed Medications, Abx #7, Abx post surger #4 cefazolin 2gm IV q8h Microbiology 10/30 blood cultures 2 sets: MSSA 10/30 heart tissue: 3+ GPC: MSSA 10/26 blood cultures 2 sets MSSA 11/02 blood cx 1/2 sets GNR (not ID'd by [facility]) Subjective: Patient adamant about leaving Tuesday. She plans on staying locally through the and wants to get antibiotics dosed in the infusion center with new peripheral IV daily. "I would stay if it was not the holidays." Objective: Vital Signs Temp Pulse Resp BP Pulse Ox 36.6 C 100 16 126/75 H 94 11/03/18 08:00 11/03/18 08:00 11/03/18 08:00 11/03/18 08:00 11/03/18 08:00 Microbiology 10/30/18 17:28 Gram Stain - Final Heart - Tissue Laboratory Results 11/02/18 05:16 11/03/18 05:45 11/02/18 11/03/18 11/04/18 05:59 05:59 05:59 Intake Total 1048 2701 Output Total 1450 250 75 Balance -402 2451 -75 - Physical Exam General Appearance: alert, thin EENT: pale conjunctiva, No scleral icterus, No thrush Respiratory: crackles (L > R base) Neck: supple Cardiac/Chest: tachycardia, systolic murmur, other (T shaped midline chest incision c/d/i, chest tubes out) Extremities: No pedal edema Skin: signs of IVDA Neuro/Psych: alert, normal mood/affect, oriented x 3, other (Ambulating in the room) - Line/s RUE PICC Lines: No drainage, No erythema - Time Spent With Patient Time Spent with Patient: greater than 35 minutes Time Spent with Patient: Greater than 35 minutes spent on this patients care, greater than 50% of time spent counseling, educating, and coordinating care regarding the above mentioned plan. ICD10 Worksheet Patient Problems: Problems Problem Status Onset Acute blood loss anemia Acute Endocarditis of tricuspid valve Acute IV drug user Acute Pneumonia Acute Sepsis Acute Status post tricuspid valve repair Acute ~10/30/18 Tachycardia Acute s/p sternal reconstruction Acute ~10/30/18 Sternal deformity Chronic Abscess Acute Anemia Acute Narcotic abuse Acute Psychosis Acute Ventral hernia Acute
[2018-11-03] MEDS ORDERED: FUROSEMIDE 20 MG/2 ML VIAL IVP ONE (10:02)
--- NOTE | 2018-11-03 10:45 | PDIAF ---
- Diagnosis Diagnosis: MSSA TV endocarditis w septic pulm emboli Code Status: Full Code - Medication Management Senior Care Antibiotics: ceftriaxone 2gm IV daily [employer] Antibiotic Stop Date: 12/13/18 Discharge Medications: electronically signed and located in the Home Medication List. PICC Care - Routine: N/A (PIV with each dose IV antibiotics) - Orders Isolation Type: Contact Isolation Additional Instructions: Change dressings to left chest every 2 days and prn. 1. Clean with ns and gauze 2. Skin prep alisa wound 3. Cut a piece of Hydrofera blue tunneling to fill wound bed, then cut in half lengthwise, moisten with normal saline and wring out. Pack lightly but fully into wound. 4. Secure with Small allevyn life dressing. Kiera James RN Wound Care Team - Labs/Radiology CBC w/diff Date: 11/13/18 (weekly tuesday) CMP Date: 11/13/18 (weekly tuesday) Call or Fax Lab and Imaging Results to: Tamie Poole MD [facility] at fax [phone] - Follow Up Care Current Providers and Referrals: Miguel Chavez MD [Primary Care Provider] - As per Instructions Tamie Poole MD [Medical Doctor] - follow up in 1 week
--- NOTE | 2018-11-03 12:25 | HOSPPROG ---
Hospitalist Progress Note Assessment/Plan: 23 yo F w IVDU, h/o sternal osteo here w sepsis, mssa bacteremia, TV endocarditis, wrist abscess. ongoing IV drug use: the pt admits to IV Heroin on 11/01 -strict visitor precautions Acute on Chronic Pain Management -cont MS Contin -PO Dilaudid for breakthrough -NO Adjustments to this (morphine equivalents were calculated) -d/w Surgery sepsis: Resolved -2/2 MSSA bacteremia from IVDU tachycardia, leukocytosis, source arm abscess: s/p I&D bacteremia TV endocarditis: w septic embolis to lungs Changed to Ancef due to diarrhea. Will need 6 weeks course likely at the infusion center. Will need to insert and remove IV with each treatment dose ID following valve debridement and repair on 10/30 AHRF: 2/2 septic emboli continue anemia: monitoring closely, s/p PRBC transfusion anxiety: increase klonopin to tid prn paxil started during this hospitalization diarrhea due to abx, no e/o C-Diff Left Groin bruising. No induration this morning proph: Heparin Plan: -She reports that pain is well controlled today. She did not request any adjustments -CXR reviewed, additional Lasix provided. cont scheduled diuresis per surgery -recheck labs in a.m. -Blood cx with G-dalton noted, ID following, PICC to be replaced, await identification and sensitivities -Monitor bruising to groin, nursing aware -Plan to d/c on Tuesday. She threatened leaving AMA on 11/03. Note that she has decisional capacity and a medical incapacity hold cannot be placed Subjective: no cp or sob. no n/v. pain is well controlled. reports bruising to left groin but she doesnt remember if it was present previously. Objective: Vital Signs Temp Pulse Resp BP Pulse Ox 36.3 C 120 H 28 H 116/77 93 11/03/18 11:48 11/03/18 11:48 11/03/18 11:48 11/03/18 11:48 11/03/18 11:48 Microbiology 10/30/18 17:28 Gram Stain - Final Heart - Tissue 11/02/18 09:15 Blood Panel (PCR) - Final Blood No Organism Detected By Pcr Laboratory Results 11/02/18 05:16 11/03/18 05:45 1211/03/18 11/04/18 05:59 05:59 05:59 Intake Total 1048 2701 Output Total 1450 250 525 Balance -402 2451 -525 PT 17.2 SEC (12.0-15.0) H 10/28/18 04:55 INR 1.39 (0.83-1.16) H 10/28/18 04:55 - Physical Exam Constitutional: no apparent distress Eyes: PERRL Ears, Nose, Mouth, Throat: moist mucous membranes, hearing normal Cardiovascular: regular rate and rhythym, No edema Respiratory: no respiratory distress, no rales or rhonchi, clear to auscultation Gastrointestinal: normoactive bowel sounds Skin: warm Neurologic: AAOx3 Psychiatric: interacting appropriately, not anxious, not encephalopathic Lymph, Heme, Immunologic: No petechiae ICD10 Worksheet Patient Problems: Problems Problem Status Onset Acute blood loss anemia Acute Endocarditis of tricuspid valve Acute IV drug user Acute Pneumonia Acute Sepsis Acute Status post tricuspid valve repair Acute ~10/30/18 Tachycardia Acute s/p sternal reconstruction Acute ~10/30/18 Sternal deformity Chronic Abscess Acute Anemia Acute Narcotic abuse Acute Psychosis Acute Ventral hernia Acute
[2018-11-03] MEDS: clonazePAM 1 MG TAB PO PRN ×2 (13:49→21:53)
--- NOTE | 2018-11-03 14:37 | ASMTCMCOM ---
CM Note CM Note Notes: Patient does not meet criteria for a medical detainer. Currently, patient states she plans to leave on Tuesday. If that is the case, CM will need to set up her appointments with the infusion center if she is going to pursue getting the needed antibiotics. Spoke with patient's mother Shanika who understands the hospital has to follow protocol. Shanika is returning to [place] tomorrow. She is profoundly sad and states she knows she may not see her daughter alive again. Shanika was grateful for the care and understanding both she and her daughter have received here. She will return quickly if her daughter decides to pursue treatment for addiction.CM will follow. Date Signed: 11/03/2018 02:36 PM Electronically Signed By:Griselda Parkinson LCSW
[2018-11-03] MEDS: ZOLPIDEM TARTRATE 5 MG TAB PO SCH (21:53)
[2018-11-04] MEDS: HYDROmorphONE/DILAUDID 2 MG TAB PO PRN ×5 (04:25→22:23)
[2018-11-04] MEDS: guaiFENesin 200 MG/10 ML UDL PO PRN ×3 (04:26→18:20)
[2018-11-04 05:09] LABS: PLATELET COUNT 582 10^3/uL (150-400)
[2018-11-04] MEDS: clonazePAM 1 MG TAB PO PRN ×2 (05:57→21:07)
[2018-11-04] MEDS: ceFAZolin 2 GM/DEXTROSE 100 ML IV SCH ×3 (05:57→21:08)
[2018-11-04] MEDS: HEPARIN 5,000 UNIT/0.5 ML INJ SC SCH ×3 (06:04→20:54)
--- NOTE | 2018-11-04 06:35 | SOAPPROG ---
SOAP Progress Note Assessment/Plan: POD#5: Median sternotomy with removal of skin graft, bilateral flap mobilization , and chest wall reconstruction; extensive tricuspid valve debridement, complex tricuspid valve repair w autologous pericardial patch reconstruction of anteroseptal leaflets, pulmonic valve exploration (neg for veg) MSSA TV endocarditis with lobulated vegetation, septic emboli, and persistent bacteremia s/p TV debridement/repair. ABX as per ID. Antithrombotic prophylaxis with ASA alone. Will continue Toradol for pain. Sternal deformity - s/p partial sternectomy and skin grafting for prior abscess and osteo. Chest wall remodeled and stabilized with stainless steel wire. Sternal precautions x 6 weeks. Acute on chronic anemia - Stable s/p 1u PRBC preop and 4u PRBC postop. No evidence active bleeding. Thrombocytosis- Plt count 582k (304k). Will increase ASA to 325mg daily. Groin hematoma- Stable. US negative for pseudoaneurysm. Will follow. Hx polysubstance abuse with IVDA - pt found somnolent 11/01 and discovered to have had drugs injected into her PICC by a visitor. Pt transferred to ICU for isolation. Hospitalist following. Anxiety- Stable, on Clonopin and Paxil. DVT prophylaxis - SCDs/Heparin SQ. Cough - Likely multifactorial d/t septic emboli and pulm edema. PRN mucinex Disposition- Plan for discharge on Tuesday. Subjective: Patient complains of groin pain. Requests that we continue her Toradol which works well for pain. Objective: Vital Signs Temp Pulse Resp BP Pulse Ox 37.3 C 104 H 18 119/67 95 11/04/18 04:00 11/04/18 04:00 11/04/18 04:00 11/03/18 20:05 11/04/18 04:00 Microbiology 10/30/18 17:28 Gram Stain - Final Heart - Tissue 11/02/18 09:15 Blood Panel (PCR) - Final Blood No Organism Detected By Pcr Laboratory Results 11/04/18 04:30 11/04/18 04:30 11/03/18 11/04/18 11/05/18 05:59 05:59 05:59 Intake Total 2701 1810 Output Total 250 1200 Balance 2451 610 PT 17.2 SEC (12.0-15.0) H 10/28/18 04:55 INR 1.39 (0.83-1.16) H 10/28/18 04:55 Physical Exam - Physical Exam General Appearance: WD/WN, alert, no apparent distress Neck: supple Respiratory: lungs clear, decreased breath sounds (bases) Cardiac/Chest: tachycardia, other (regular rhythm, no murmurs, rubs, gallops. sternum stable. sternotomy c/d/i. ) Abdomen: normal bowel sounds, non-tender, soft Skin: warm/dry Extremities: other (warm, no edema. ) Neuro/Psych: alert, normal mood/affect, oriented x 3 ICD10 Worksheet Patient Problems: Problems Problem Status Onset Acute blood loss anemia Acute Endocarditis of tricuspid valve Acute IV drug user Acute Pneumonia Acute Sepsis Acute Status post tricuspid valve repair Acute ~10/30/18 Tachycardia Acute s/p sternal reconstruction Acute ~10/30/18 Sternal deformity Chronic Abscess Acute Anemia Acute Narcotic abuse Acute Psychosis Acute Ventral hernia Acute
[2018-11-04] MEDS: PARoxetine HCL 20 MG TAB PO SCH (08:41)
[2018-11-04] MEDS: FUROSEMIDE 20 MG TAB PO SCH ×2 (08:41→14:29)
[2018-11-04] MEDS: morphINE SR 15 MG TAB PO SCH ×3 (08:41→21:07)
[2018-11-04] MEDS: POTASSIUM CL 20 MEQ TAB PO SCH ×2 (08:41→20:00)
[2018-11-04] MEDS ORDERED: ASPIRIN 325 MG TAB ONE (08:45)
[2018-11-04] MEDS ORDERED: KETOROLAC 15 MG/1 ML SDV ONE (08:45)
[2018-11-04] MEDS: ASPIRIN 325 MG TAB PO SCH (09:05)
[2018-11-04] MEDS: KETOROLAC 15 MG/1 ML SDV IVP SCH ×3 (09:05→20:00)
--- NOTE | 2018-11-04 10:43 | HOSPPROG ---
Hospitalist Progress Note Assessment/Plan: 23 yo F w IVDU, h/o sternal osteo here w sepsis, mssa bacteremia, TV endocarditis, wrist abscess. ongoing IV drug use: the pt admits to IV Heroin on 11/01 -strict visitor precautions Acute on Chronic Pain Management -cont MS Contin as dosed -PO Dilaudid for breakthrough -NO Adjustments to this (morphine equivalents were calculated) -d/w Surgery sepsis: Resolved -2/2 MSSA bacteremia from IVDU tachycardia, leukocytosis, source arm abscess: s/p I&D bacteremia TV endocarditis: w septic embolis to lungs Changed to Ancef due to diarrhea. Will need 6 weeks course likely at the infusion center. Will need to insert and remove IV with each treatment dose ID following valve debridement and repair on 10/30 AHRF: 2/2 septic emboli continue anemia: monitoring closely, s/p PRBC transfusion anxiety: increase klonopin to tid prn paxil started during this hospitalization diarrhea due to abx, no e/o C-Diff Left Groin Hematoma -since 11/03 has expanded and now painful -will obtain US for evaluation -Aspirin was increased from baby to full dose this morning and she received a dose. She is also on Heparin for DVT proph. Nursing is calling surgery for notification and adjustment of meds proph: Heparin for now Disp: -Plan to d/c on Tuesday. She threatened leaving AMA on 11/03. Note that she has decisional capacity and a medical incapacity hold cannot be placed Subjective: pain is well controlled. reports increase bruising to left groin area Objective: Vital Signs Temp Pulse Resp BP Pulse Ox 37.3 C 108 H 14 137/72 H 94 11/04/18 07:55 11/04/18 07:55 11/04/18 07:55 11/04/18 07:55 11/04/18 07:55 Microbiology 10/30/18 17:28 Gram Stain - Final Heart - Tissue 11/02/18 09:15 Blood Panel (PCR) - Final Blood No Organism Detected By Pcr Laboratory Results 11/04/18 04:30 11/04/18 04:30 11/03/18 11/04/18 11/05/18 05:59 05:59 05:59 Intake Total 2701 1810 Output Total 250 1200 Balance 2451 610 PT 17.2 SEC (12.0-15.0) H 10/28/18 04:55 INR 1.39 (0.83-1.16) H 10/28/18 04:55 - Physical Exam Constitutional: no apparent distress Eyes: PERRL, EOMI Ears, Nose, Mouth, Throat: moist mucous membranes, hearing normal Cardiovascular: regular rate and rhythym, No edema Respiratory: no respiratory distress, no rales or rhonchi, clear to auscultation Gastrointestinal: normoactive bowel sounds, soft, non-tender abdomen Skin: warm, other (left groin with bruising and ttp) Neurologic: AAOx3 Psychiatric: interacting appropriately, not anxious, not encephalopathic Lymph, Heme, Immunologic: No petechiae ICD10 Worksheet Patient Problems: Problems Problem Status Onset Acute blood loss anemia Acute Endocarditis of tricuspid valve Acute IV drug user Acute Pneumonia Acute Sepsis Acute Status post tricuspid valve repair Acute ~10/30/18 Tachycardia Acute s/p sternal reconstruction Acute ~10/30/18 Sternal deformity Chronic Abscess Acute Anemia Acute Narcotic abuse Acute Psychosis Acute Ventral hernia Acute
--- NOTE | 2018-11-04 12:54 | PCMIDPN ---
Assessment/Plan: # MSSA TV endocarditis with pulmonary emboli, OR 09/30 for tricuspid valve repair. Heart tissue cultures are positive for MSSA and streptococcus salivarius. Blood cx 11/02 shows clearance of MSSA --continue high dose cefazolin, diarrhea resolved. Cefazolin will likely cover strep --ceftriaxone 2gm IV in infusion center as patient with pulmonary emboli and daptomycin without lung penetration. Plan IV ceftriaxone 2gm through 11/13/18. Set up f/u appointment with me. Patient will look for ID doctor to refer to in [place]. I expressed my concerns to the patient today regarding ability to get PIV each day and infusion center and recommended staying in the hospital. --there are 2 small studies that evaluate oral therapy in IVDU with R sided endocarditis, one with Bactrim and one with oral rifampin and ciprofloxacin. Will consider these options if unable to keep going to infusion center. These studies evaluated individual w/o complications and she has many septic pulmonary emboli therefore not the perfect candidate. Will uncover MSSA sensi to Cipro. # PICC line infection w GNR plus known manipulation: PICC line removed last night with fever and patient reported feeling immediately better --blood cx tomorrow AM --await ID of GNR, but removing # History of MRSA sternal osteomyelitis: Contact isolation. Chest wall skin graft debridement and chest wall reconstruction was performed Medications, Abx #8, Abx post surgery #5 cefazolin 2gm IV q8h Microbiology 10/30 blood cultures 2 sets: MSSA 10/30 heart tissue: 3+ GPC: MSSA and streptococcus salivarius 10/26 blood cultures 2 sets MSSA 11/02 blood cx 1/2 sets GNR (not ID'd by [facility], ID pending) Subjective: patient c/o L groin pain Woodman sick last night associated with fever but immediately resolved after PICC line removed Formed stool "I can't sleep in these beds!" Objective: Vital Signs Temp Pulse Resp BP Pulse Ox 36.9 C 102 H 12 131/83 H 95 11/04/18 11:53 11/04/18 11:53 11/04/18 11:53 11/04/18 11:53 11/04/18 11:53 Microbiology 10/30/18 17:28 Gram Stain - Final Heart - Tissue 11/02/18 09:15 Blood Panel (PCR) - Final Blood No Organism Detected By Pcr Laboratory Results 11/04/18 04:30 11/04/18 04:30 11/03/18 11/04/18 11/05/18 05:59 05:59 05:59 Intake Total 2701 1810 Output Total 250 1200 Balance 2451 610 - Physical Exam General Appearance: alert, no apparent distress Respiratory: crackles, No accessory muscle use Neck: supple Cardiac/Chest: tachycardia Skin: signs of IVDA Neuro/Psych: alert, normal mood/affect, oriented x 3 - Line/s PIV Lines: other (L upper arm), No drainage, No erythema - Time Spent With Patient Time Spent with Patient: greater than 35 minutes Time Spent with Patient: Greater than 35 minutes spent on this patients care, greater than 50% of time spent counseling, educating, and coordinating care regarding the above mentioned plan. ICD10 Worksheet Patient Problems: Problems Problem Status Onset Acute blood loss anemia Acute Endocarditis of tricuspid valve Acute IV drug user Acute Pneumonia Acute Sepsis Acute Status post tricuspid valve repair Acute ~10/30/18 Tachycardia Acute s/p sternal reconstruction Acute ~10/30/18 Sternal deformity Chronic Abscess Acute Anemia Acute Narcotic abuse Acute Psychosis Acute Ventral hernia Acute
[2018-11-04] MEDS: ACETAMINOPHEN 325 MG TAB PO PRN (14:28)
--- NOTE | 2018-11-04 15:24 | PDIAF ---
- Diagnosis Diagnosis: MSSA TV endocarditis w septic pulm emboli Code Status: Full Code - Medication Management Skilled Nursing Antibiotics: ceftriaxone 2gm IV daily Automotive Repair Technician Antibiotic Stop Date: 12/14/18 Discharge Medications: electronically signed and located in the Home Medication List. PICC Care - Routine: N/A (PIV with each dose IV antibiotics) - Orders Isolation Type: Contact Isolation Additional Instructions: Change dressings to left chest every 2 days and prn. 1. Clean with ns and gauze 2. Skin prep alisa wound 3. Cut a piece of Hydrofera blue tunneling to fill wound bed, then cut in half lengthwise, moisten with normal saline and wring out. Pack lightly but fully into wound. 4. Secure with Small allevyn life dressing. Kiera James RN Wound Care Team - Labs/Radiology CBC w/diff Date: 11/13/18 (weekly tuesday) CMP Date: 11/13/18 (weekly tuesday) Call or Fax Lab and Imaging Results to: Tamie Poole MD [facility] at fax [phone] - Follow Up Care Current Providers and Referrals: Miguel Chavez MD [Primary Care Provider] - As per Instructions Tamie Poole MD [Medical Doctor] - 11/09/18 10:00 am
--- NOTE | 2018-11-04 15:53 | ASMTCMCOM ---
CM Note CM Note Notes: CM asked to schedule appointments with the infusion center beginning 11/07 and continuing through the . Mechanical Systems Control Engineer not available today. Will schedule on Tuesday. Pt would like an appt around 1:00PM. Date Signed: 11/04/2018 03:53 PM Electronically Signed By:Bijal Burk
--- NOTE | 2018-11-04 16:18 | ASMTCMCOM ---
CM Note CM Note Notes: Appt scheduled for 11/07 at 1:00PM. Pt informed. Date Signed: 11/04/2018 04:18 PM Electronically Signed By:Bijal Burk
[2018-11-04] MEDS: ZOLPIDEM TARTRATE 5 MG TAB PO SCH (21:08)
[2018-11-05] MEDS: HYDROmorphONE/DILAUDID 2 MG TAB PO PRN ×4 (02:28→20:02)
[2018-11-05] MEDS: KETOROLAC 15 MG/1 ML SDV IVP SCH (02:28)
[2018-11-05] MEDS: clonazePAM 1 MG TAB PO PRN (05:46)
[2018-11-05] MEDS: ceFAZolin 2 GM/DEXTROSE 100 ML IV SCH ×3 (05:46→21:41)
[2018-11-05] MEDS: HEPARIN 5,000 UNIT/0.5 ML INJ SC SCH ×3 (05:54→21:19)
[2018-11-05] MEDS: FUROSEMIDE 20 MG TAB PO SCH ×2 (07:53→14:45)
[2018-11-05] MEDS: morphINE SR 15 MG TAB PO SCH ×2 (07:53→16:04)
[2018-11-05] MEDS: ASPIRIN 325 MG TAB PO SCH (07:53)
[2018-11-05] MEDS: POTASSIUM CL 20 MEQ TAB PO SCH (07:53)
[2018-11-05] MEDS: PARoxetine HCL 20 MG TAB PO SCH (07:53)
[2018-11-05] MEDS: guaiFENesin 200 MG/10 ML UDL PO PRN ×3 (08:05→20:02)
--- NOTE | 2018-11-05 09:19 | SOAPPROG ---
SOAP Progress Note Assessment/Plan: POD#6: Median sternotomy with removal of skin graft, bilateral flap mobilization , and chest wall reconstruction; extensive tricuspid valve debridement, complex tricuspid valve repair w autologous pericardial patch reconstruction of anteroseptal leaflets, pulmonic valve exploration (neg for veg) MSSA TV endocarditis with lobulated vegetation, septic emboli, and persistent bacteremia s/p TV debridement/repair. ABX as per ID. Antithrombotic prophylaxis with ASA alone. Sternal deformity - s/p partial sternectomy and skin grafting for prior abscess and osteo. Chest wall remodeled and stabilized with stainless steel wire. Sternal precautions x 6 weeks. Acute on chronic anemia - Stable s/p 1u PRBC preop and 4u PRBC postop. No evidence active bleeding. Thrombocytosis- On ASA to 325mg daily. Groin hematoma- Stable. US negative for pseudoaneurysm. Will follow. Hx polysubstance abuse with IVDA - Pt found somnolent 11/01 and discovered to have had drugs injected into her PICC by a visitor. Pt transferred to ICU for isolation. Hospitalist following. Anxiety- Stable, on Clonopin and Paxil. Acute on chronic pain- Managed by Hospitalist service. On MS Contin and Dilaudid for breakthrough. DVT prophylaxis - SCDs/Heparin SQ. Cough - Persists. Will check [place]/lat CXR today. Likely multifactorial d/t septic emboli and pulm edema. PRN mucinex Disposition- Plan for discharge on Tuesday. Subjective: Patient reports continued discomfort with our hospital bed. "I can tolerate it though because I will be leaving tomorrow." Patient continues to complain about pain from small right abdominal wound. Objective: Vital Signs Temp Pulse Resp BP Pulse Ox 37 C 106 H 20 126/87 H 92 11/05/18 07:47 11/05/18 07:47 11/05/18 07:47 11/05/18 07:47 11/05/18 07:47 Microbiology 11/02/18 09:15 Blood Panel (PCR) - Final Blood No Organism Detected By Pcr 10/30/18 13:30 Blood Culture - Final Blood Staphylococcus Aureus 10/30/18 13:50 Blood Culture - Final Blood Staphylococcus Aureus 10/30/18 17:28 Gram Stain - Final Heart - Tissue Laboratory Results 11/04/18 04:30 11/04/18 04:30 11/04/18 11/05/18 11/06/18 05:59 05:59 05:59 Intake Total 1810 1465 Output Total 1200 Balance 610 1465 PT 17.2 SEC (12.0-15.0) H 10/28/18 04:55 INR 1.39 (0.83-1.16) H 10/28/18 04:55 Physical Exam - Physical Exam General Appearance: WD/WN, alert, no apparent distress Neck: supple Respiratory: lungs clear, decreased breath sounds (right mid lung field and base and left base. ), other (no wheezing, rhonchi, rales.) Cardiac/Chest: tachycardia, other (regular rhythm. no murmurs, rubs, gallops. sternum stable. sternal wound c/d/i.) Abdomen: normal bowel sounds, non-tender, soft Skin: normal color, warm/dry Extremities: other (warm, no edema. ) Neuro/Psych: alert, normal mood/affect, oriented x 3 ICD10 Worksheet Patient Problems: Problems Problem Status Onset Acute blood loss anemia Acute Endocarditis of tricuspid valve Acute IV drug user Acute Pneumonia Acute Sepsis Acute Status post tricuspid valve repair Acute ~10/30/18 Tachycardia Acute s/p sternal reconstruction Acute ~10/30/18 Sternal deformity Chronic Abscess Acute Anemia Acute Narcotic abuse Acute Psychosis Acute Ventral hernia Acute
--- NOTE | 2018-11-05 11:00 | PCMIDPN ---
Assessment/Plan: Assessment/Plan: * MSSA bacteremia with septic pulmonary emboli due to tricuspid valve endocarditis status post tricuspid valve repair: Valve culture also positive for MSSA. Documented clearance of MSSA bacteremia. Patient require 6 weeks of IV antibiotics post valve debridement. Complicated by injection drug use including recent use in hospital. Current plans are for patient to come to the infusion center for daily infusion with placement and removal of IV at each visit prior to moving back to [place]. Access likely will be problematic moving forward. Patient has been adamant about not staying in hospital for duration of treatment. Secondary plan would be to complete treatment with fluoroquinolone and rifampin (favor this over Bactrim based on below discussion) . 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 Acquisition related to patient's recent injection drug use into her PICC line which has now been removed. Organism often susceptible to newer fluoroquinolones. Will begin oral levofloxacin 750 mg daily. Anticipate 5 days of therapy for this bacteremia now that source has been removed. Repeat blood culture x1 is pending to ensure clearance. Levofloxacin could be used in lieu of ciprofloxacin in combination with rifampin if necessary for ongoing therapy of endocarditis. * Right forearm abscess: Likely secondary to injection drug use. Have asked surgery to drain this prior to discharge. 11/05/18 10:57 Subjective: Patient states "can you order me another Dilaudid as I lost mine in my bed". Complains of abscess over right forearm which she states has been present since time of admission. Objective: Vital Signs Temp Pulse Resp BP Pulse Ox 37 C 106 H 20 126/87 H 92 11/05/18 07:47 11/05/18 07:47 11/05/18 07:47 11/05/18 07:47 11/05/18 07:47 Microbiology 10/30/18 17:28 Gram Stain - Final Heart - Tissue 11/02/18 09:15 Blood Panel (PCR) - Final Blood No Organism Detected By Pcr 10/30/18 13:30 Blood Culture - Final Blood Staphylococcus Aureus 10/30/18 13:50 Blood Culture - Final Blood Staphylococcus Aureus Laboratory Results 11/04/18 04:30 11/04/18 04:30 11/04/18 11/05/18 11/06/18 05:59 05:59 05:59 Intake Total 1810 1465 Output Total 1200 Balance 610 1465 Antibiotics postop # 6 Cefazolin 2 g IV q.8 hours Blood cultures 11/02/2018 1/2 sets Chryseobacterium indologenes - Physical Exam General Appearance: alert, no apparent distress, non-toxic EENT: No thrush, No conjunctival petechiae Cardiac/Chest: tachycardia Extremities: inflammation (Right wrist with 2 x 2 cm abscess; left forearm abscess packed with Hydrofera without signs of infection) Abdomen: non-tender, No distended - Time Spent With Patient Time Spent with Patient: greater than 35 minutes Time Spent with Patient: Greater than 35 minutes spent on this patients care, greater than 50% of time spent counseling, educating, and coordinating care regarding the above mentioned plan. ICD10 Worksheet Patient Problems: Problems Problem Status Onset Acute blood loss anemia Acute Endocarditis of tricuspid valve Acute IV drug user Acute Pneumonia Acute Sepsis Acute Status post tricuspid valve repair Acute ~10/30/18 Tachycardia Acute s/p sternal reconstruction Acute ~10/30/18 Sternal deformity Chronic Abscess Acute Anemia Acute Narcotic abuse Acute Psychosis Acute Ventral hernia Acute
[2018-11-05] MEDS ORDERED: ETHYL CHLORIDE 103.5 ML SPRAY TP ONE (11:30)
[2018-11-05] MEDS: ACETAMINOPHEN 325 MG TAB PO PRN ×2 (12:40→21:41)
[2018-11-05] MEDS ORDERED: HYDROmorphONE/DILAUDID 2 MG/ML INJ IVP ONE (15:45)
[2018-11-05] MEDS ORDERED: HYDROmorphONE/DILAUDID 2 MG/ML INJ ONE (15:47)
--- NOTE | 2018-11-05 16:48 | HOSPPROG ---
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 -6 weeks IV abx - still febrile today - I have concerns with plan for DC in am -she plan to travel to [place] for Xmas - she is aware that it is her responsibility to find physician in [place] to accept her case and continue IV abx * Chryseobacterium sepsis -due to injection of hospital water in PICC -PO levaquin per ID * Septic pulmonary emboli * IVDA -active use while inpatient -now with strict visitor precautions * Continuous narcotic dependency -agreement to keep narcotics at current dose - no escalation * MSSA sepsis - as above * Acute respiratory failure due to septic pulmonary emboli -weaned off O2 * Forearm abscess -need I&D before discharge * 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 Objective: Vital Signs Temp Pulse Resp BP Pulse Ox 37.8 C 121 H 20 142/81 H 90 L 11/05/18 13:20 11/05/18 12:00 11/05/18 12:00 11/05/18 12:00 11/05/18 12:00 Microbiology 10/30/18 17:28 Gram Stain - Final Heart - Tissue 11/02/18 09:15 Blood Panel (PCR) - Final Blood No Organism Detected By Pcr 10/30/18 13:30 Blood Culture - Final Blood Staphylococcus Aureus 10/30/18 13:50 Blood Culture - Final Blood Staphylococcus Aureus Laboratory Results 11/04/18 04:30 11/04/18 04:30 11/04/18 11/05/18 11/06/18 05:59 05:59 05:59 Intake Total 1810 1465 Output Total 1200 Balance 610 1465 PT 17.2 SEC (12.0-15.0) H 10/28/18 04:55 INR 1.39 (0.83-1.16) H 10/28/18 04:55 d/w Dr. brito regarding possible discharge CXR - negative tele - sinus tachy - Time Spent With Patient Time Spent with Patient: greater than 35 minutes Time Spent with Patient: Greater than 35 minutes spent on this patients care, greater than 50% of time spent counseling, educating, and coordinating care regarding the above mentioned plan. - Physical Exam Constitutional: no apparent distress, appears nourished, not in pain Cardiovascular: regular rate and rhythym, no murmur, rub, or gallop Respiratory: no respiratory distress, no rales or rhonchi, clear to auscultation Gastrointestinal: normoactive bowel sounds, soft, non-tender abdomen, no palpable masses Skin: no rashes or abrasions, no fluctuance, no induration Neurologic: AAOx3, sensation intact bilaterally Psychiatric: interacting appropriately, not anxious, not encephalopathic, thought process linear ICD10 Worksheet Patient Problems: Problems Problem Status Onset Acute blood loss anemia Acute Endocarditis of tricuspid valve Acute IV drug user Acute Pneumonia Acute Sepsis Acute Status post tricuspid valve repair Acute ~10/30/18 Tachycardia Acute s/p sternal reconstruction Acute ~10/30/18 Sternal deformity Chronic Abscess Acute Anemia Acute Narcotic abuse Acute Psychosis Acute Ventral hernia Acute
[2018-11-05] MEDS ORDERED: HYDROmorphONE/DILAUDID 1 MG/ML INJ IVP ONE (17:00)
--- NOTE | 2018-11-05 17:42 | POSTOPPROG ---
Post Op Note Date of Operation: 11/05/18 Surgeon: Miguel Balbuena Anesthesia: Other (Specify) (Ethyl Chloride spray) Pre-op Diagnosis: abscess, right wrist Post-op Diagnosis: abscess, right wrist Indication: abscess, right wrist Procedure: I&D, irrigation, packing with iodoform, culture of right wrist abscess Findings: abscess, right wrist Inf/Abcess present in the surg proc area at time of surgery?: Yes Depth: Superfical (Skin SQ) Total fluids administered: NA Complications: None Specimen(s): culture
--- NOTE | 2018-11-05 18:26 | GOP ---
DATE OF OPERATION: SURGEON: Miguel Balbuena MD PREOPERATIVE DIAGNOSIS: Abscess, right wrist. POSTOPERATIVE DIAGNOSIS: Abscess, right wrist. PROCEDURE PERFORMED: Incision and drainage abscess right wrist with culture and placement of iodofor m wick. FINDINGS: Abscess, right wrist. INDICATIONS: Abscess, right wrist. DESCRIPTION OF PROCEDURE: The patient's arm was carefully prepped and draped with Betadine. A conse nt had been obtained. The skin was anesthetized with ethylene chloride. Note was made 1 mg of Dilau did was being given IV at the same timeframe. The skin was sharply incised. A large amount of pus w as expressed. A culture was obtained. The wound was well irrigated with saline and an 18-gauge Haydee ocath. Once this had been done, an Iodoform wick was carefully placed. A sterile dressing was appli ed. No cultures had been obtained. The patient tolerated procedure well. /[id number]/MODL
[2018-11-05] MEDS: QUEtiapine FUMARATE 50 MG TAB PO SCH (21:19)
[2018-11-05] MEDS: ZOLPIDEM TARTRATE 5 MG TAB PO PRN (21:23)
[2018-11-06] MEDS: morphINE SR 15 MG TAB PO PRN ×4 (00:13→23:17)
[2018-11-06] MEDS: guaiFENesin 200 MG/10 ML UDL PO PRN ×4 (06:06→23:17)
[2018-11-06] MEDS: ceFAZolin 2 GM/DEXTROSE 100 ML IV SCH ×3 (06:06→22:18)
[2018-11-06] MEDS: HYDROmorphONE/DILAUDID 2 MG TAB PO PRN ×5 (06:06→22:17)
[2018-11-06] MEDS: HEPARIN 5,000 UNIT/0.5 ML INJ SC SCH ×2 (06:07→14:48)
--- NOTE | 2018-11-06 07:28 | SOAPPROG ---
SOAP Progress Note Assessment/Plan: POD#7: Median sternotomy with removal of skin graft, bilateral flap mobilization , and chest wall reconstruction; extensive tricuspid valve debridement, complex tricuspid valve repair w autologous pericardial patch reconstruction of anteroseptal leaflets, pulmonic valve exploration (neg for veg) POD#1 I&D right wrist abscess MSSA TV endocarditis with lobulated vegetation, septic emboli, and persistent bacteremia s/p TV debridement/repair. ABX as per ID. Antithrombotic prophylaxis with ASA alone. Sternal deformity - s/p partial sternectomy and skin grafting for prior abscess and osteo. Chest wall remodeled and stabilized with stainless steel wire. Sternal precautions x 6 weeks. Acute on chronic anemia - Stable s/p 1u PRBC preop and 4u PRBC postop. No evidence active bleeding. Thrombocytosis- On ASA to 325mg daily. Groin hematoma- Stable. US negative for pseudoaneurysm. Will follow. Hx polysubstance abuse with IVDA - Pt found somnolent 11/01 and discovered to have had drugs injected into her PICC by a visitor. Pt transferred to ICU for isolation. Hospitalist following. Anxiety- Stable, on Clonopin and Paxil. Acute on chronic pain- Managed by Hospitalist service. On MS Contin and Dilaudid for breakthrough. DVT prophylaxis - SCDs/ambulation. Pt refuses SC heparin. Cough - d/t septic emboli and pulm edema. PRN mucinex. 12 + blood cultures - streptococcus klebsiella oxytoca. Rx per ID. Disposition- Plan was for dc today, but given new positive blood cultures, will defer to ID. Subjective: Wants to be discharged Objective: Vital Signs Temp Pulse Resp BP Pulse Ox 37.0 C 100 20 133/80 H 91 L 11/06/18 04:00 11/06/18 04:00 11/06/18 04:00 11/06/18 04:00 11/06/18 04:00 Microbiology 11/05/18 09:30 Blood Panel (PCR) - Final Blood Streptococcus Klebsiella Oxytoca 11/05/18 16:00 Gram Stain - Final Wrist - Swab 10/30/18 17:28 Gram Stain - Final Heart - Tissue 11/02/18 09:15 Blood Panel (PCR) - Final Blood No Organism Detected By Pcr 10/30/18 13:30 Blood Culture - Final Blood Staphylococcus Aureus 10/30/18 13:50 Blood Culture - Final Blood Staphylococcus Aureus Laboratory Results 11/04/18 04:30 11/04/18 04:30 11/05/18 11/06/18 11/07/18 05:59 05:59 05:59 Intake Total 1465 2044 Output Total 655 Balance 1465 1389 PT 17.2 SEC (12.0-15.0) H 10/28/18 04:55 INR 1.39 (0.83-1.16) H 10/28/18 04:55 - Physical Exam General Appearance: WD/WN, alert, no apparent distress Neck: supple Respiratory: lungs clear, decreased breath sounds (right mid lung field and base and left base. ), other (no wheezing, rhonchi, rales.) Cardiac/Chest: tachycardia, other (regular rhythm. no murmurs, rubs, gallops. sternum stable. sternal wound c/d/i.) Abdomen: normal bowel sounds, non-tender, soft Skin: normal color, warm/dry Extremities: other (warm, no edema. ), right wrist dressing Neuro/Psych: alert, normal mood/affect, oriented x 3 ICD10 Worksheet Patient Problems: Problems Problem Status Onset Acute blood loss anemia Acute Endocarditis of tricuspid valve Acute IV drug user Acute Pneumonia Acute Sepsis Acute Status post tricuspid valve repair Acute ~10/30/18 Tachycardia Acute s/p sternal reconstruction Acute ~10/30/18 Sternal deformity Chronic Abscess Acute Anemia Acute Narcotic abuse Acute Psychosis Acute Ventral hernia Acute
[2018-11-06] MEDS: PARoxetine HCL 20 MG TAB PO SCH (08:27)
[2018-11-06] MEDS: ACETAMINOPHEN 325 MG TAB PO PRN ×2 (08:27→18:35)
[2018-11-06] MEDS: ASPIRIN 325 MG TAB PO SCH (08:28)
[2018-11-06] MEDS: clonazePAM 1 MG TAB PO PRN ×2 (10:04→16:23)
--- NOTE | 2018-11-06 11:42 | PCMIDPN ---
Assessment/Plan: Assessment: 1. Right-sided endocarditis of the tricuspid valve secondary to MSSA. Patient is currently on cefazolin and tolerating it well. She is status post debridement of her tricuspid valve. Blood cultures have not shown recurrence of MSSA since heart surgery on 10/30. 2. Ongoing IV drug use while in the hospital. Chryseobacterium bacteremia discovered on 11/02. Patient placed on Levaquin empirically from reported sensitivities of this species in the literature. Her isolate has not returned with sensitivities yet. Follow-up blood cultures on 11/05 did not show regrowth of Chryseobacterium indicating likely clearance after PICC discontinuation, but..... 3. Bacteremia on 11/05 with streptococci and Klebsiella oxytoca. In this circumstance it is likely also due to ongoing injection drug use. Will continue both the Levaquin and the cefazolin. The cefazolin almost certainly covers the Streptococcus but will await sensitivity panel on Klebsiella for determination. Plan: 1. Continue IV cefazolin and Levaquin. 2. Follow up blood cultures tomorrow. 3. Follow up on sensitivity panels to the Klebsiella and identification of the Streptococcus. 4. Continued strong discouragement of illicit needle use. Subjective: Patient is resting in her hospital bed. She remains very anxious to be discharged from the hospital despite having a fever above 39 degrees at noon yesterday. Confronted the patient with her ongoing positive blood cultures which indicate continued needle use. She denies any further incidence and characterizes her being caught while hospitalized trying to inject heroin as a "mishap." Objective: Cefazolin # 7 Levaquin # 1 Vital Signs Temp Pulse Resp BP Pulse Ox 37.1 C 99 20 132/72 H 93 11/06/18 07:52 11/06/18 07:52 11/06/18 07:52 11/06/18 07:52 11/06/18 07:52 Microbiology 11/02/18 09:15 Blood Panel (PCR) - Final Blood No Organism Detected By Pcr 10/30/18 17:28 Gram Stain - Final Heart - Tissue 11/05/18 09:30 Blood Panel (PCR) - Final Blood Streptococcus Klebsiella Oxytoca 11/05/18 16:00 Gram Stain - Final Wrist - Swab 10/30/18 13:30 Blood Culture - Final Blood Staphylococcus Aureus 10/30/18 13:50 Blood Culture - Final Blood Staphylococcus Aureus Laboratory Results 11/04/18 04:30 11/04/18 04:30 11/05/18 11/06/18 11/07/18 05:59 05:59 05:59 Intake Total 1468 9875 Output Total 655 Balance 1467 9495 - Physical Exam General Appearance: WD/WN, alert, no apparent distress, non-toxic Respiratory: lungs clear, normal breath sounds, No respiratory distress Cardiac/Chest: regular rate, rhythm, No tachycardia Skin: normal color, warm/dry, No rash Neuro/Psych: alert, normal mood/affect, oriented x 3 ICD10 Worksheet Patient Problems: Problems Problem Status Onset Acute blood loss anemia Acute Endocarditis of tricuspid valve Acute IV drug user Acute Pneumonia Acute Sepsis Acute Status post tricuspid valve repair Acute ~10/30/18 Tachycardia Acute s/p sternal reconstruction Acute ~10/30/18 Sternal deformity Chronic Abscess Acute Anemia Acute Narcotic abuse Acute Psychosis Acute Ventral hernia Acute
--- NOTE | 2018-11-06 12:29 | WOCRNPDOC ---
WOCRN Advanced Assessment Note - Skin Integrity Problem, Advanced Assess Left Lower Arm Abscess Dressing Type: Allevyn Life, Hydrofera Blue Ready, Other Other Dressing Type: ifeoma ag Dressing Description: Clean/Dry, Intact Closure Description: Not Approximated Exudate Amount: Minimal Exudate Color: Reddish/Yellow Exudate Characteristic(s): Serosanguinous Integumentary Issue Intervention: Visualized Under Dressing [place] Wound Tissue: Swollen, Painful/Tender [place] Wound Swelling: Mild Wound Bed Color: [place], Red Wound Bed Constitution: Tunneling (0.2cm between 8 and 10 oclock) Site Measurement - Head-to-Toe Length X Width X Depth (cm): 0.7x0.4x0.3 Skin Integrity Problem Comment: Wound bed cleaned with normal saline. Tunneling still noted between 8 and 10 oclock, but wound bed and tunneling area smaller since previous assessment. Ifoema placed in wound bed, dressing re-applied. Patient states that she feels less pain with the wound, but it is still slightly painful. Discussed patient plan of care with WARREN Salazar. Wound care will continue to follow.
--- NOTE | 2018-11-06 13:27 | ECHO ---
[email or web address] [address] [address] Main: [phone] Fax: Transthoracic Echocardiogram Name: DARRON POPE MR#: [id number] Study Date: 11/06/2018 Study Time: 09:20 AM Date of : 1995 Age: 23 year(s) Height: ( ) Weight: ( ) BSA: Gender: Female Examination: Limited Echo Indication: Post Tricuspid Valve Repair Image Quality: Contrast: Requested by: Juan F Hua BP: / Heart Rate: Rhythm: Tachycardia Indication: Post Tricuspid Valve Repair Procedure Staff Bioassayist: López Gaines RDCS Reading Physician: Deuce Montes MD Requesting Provider: Conclusions: Normal size left ventricle. Normal global systolic LV function. There is paradoxic septal motion suggestive of bundle branch block, paced cardiac rhythm, or prior cardiac surgery. Normal RV function. The pulmonary artery pressure is moderately increased. Moderate tricuspid regurgitation is present. Echodensity on chordal struture which may respresent vegetation. Recommend LUIS FERNANDO. . Measurements: Chambers Valvular Assessment AV/MV Valvular Assessment TV/PV Normal Normal Normal Name Value Range Name Value Range Name Value Range TR Vmax: 3.28 mm/s ( - ) TR PGmax: 43 mmHg ( - ) syst. PAP: 48 mmHg ( - ) Continued Measurements: Valvular Assessment TV/PV Name Value CVP (est.): 5 mmHg Findings: Left Ventricle: Normal size left ventricle. Normal global systolic LV function. There is paradoxic septal motion suggestive of bundle branch block, paced cardiac rhythm, or prior cardiac surgery. Right Ventricle: Patient: DARRON POPE Study Date: 11/06/2018 Page 1 of 2 09:20 AM Normal RV function. Mitral Valve: The mitral valve is normal in appearance. There is no mitral valve vegetation. Aortic Valve: The aortic valve is tri-leaflet and functions normally. There is no aortic valve vegetation. Tricuspid Valve: There is mild thickening of the tricuspid valve leaflets. The pulmonary artery pressure is moderately increased. Moderate tricuspid regurgitation is present. Echodensity on chordal struture which may respresent vegetation. Recommend LUIS FERNANDO. . Pulmonic Valve: The pulmonic valve is normal in appearance and function. There is no pulmonary valve vegetation. Pericardium: No pericardial effusion. Exam Comments: This is s/p Tricuspid Valve Repair, now with positive blood cultures. The TV has been repaired and there is two known moderate tricuspid valve jets. With no obvious vegetation on the repair, off axis views were utilitzed. There is no obvious vegetation on the mitral or aortic valve. Consider LUIS FERNANDO to assess TV repair if clinically indicated.. (No Signature Object) Patient: DARRON POPE Study Date: 11/06/2018 Page 2 of 2 09:20 AM [id number]
--- NOTE | 2018-11-06 16:03 | HOSPPROG ---
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 -6 weeks IV abx - suspect persistent positive BC due to inpatient IVDA -ECHO shows persistent vegetation - await CT surgery opinion * Chryseobacterium sepsis -due to injection of hospital water in PICC -PO levaquin per ID * Septic pulmonary emboli * IVDA -active use while inpatient -now with strict visitor precautions * Continuous narcotic dependency -agreement to keep narcotics at current dose - no escalation -wean narcs down as no plan to discharge home with narcotic prescription * MSSA sepsis - as above * Acute respiratory failure due to septic pulmonary emboli -weaned off O2 * Forearm abscess -s/p I&D * h/o partial sternectomy with previous MRSA abcess/osteo/skin graft -s/p sternal reconstruction with stainless steel wire -sternal precaution for 6 weeks * Groin hematoma -US negative for pseudoaneurysm Subjective: disappointed regarding no discharge today Objective: Vital Signs Temp Pulse Resp BP Pulse Ox 37.0 C 100 20 130/84 H 95 11/06/18 11:59 11/06/18 11:59 11/06/18 11:59 11/06/18 11:59 11/06/18 11:59 Microbiology 11/05/18 16:00 Gram Stain - Final Wrist - Swab 11/05/18 09:30 Blood Panel (PCR) - Final Blood Streptococcus Klebsiella Oxytoca 10/30/18 17:28 Gram Stain - Final Heart - Tissue 11/02/18 09:15 Blood Panel (PCR) - Final Blood No Organism Detected By Pcr Laboratory Results 11/04/18 04:30 11/04/18 04:30 11/05/18 11/06/18 11/07/18 05:59 05:59 05:59 Intake Total 1465 2044 Output Total 655 Balance 1465 1389 PT 17.2 SEC (12.0-15.0) H 10/28/18 04:55 INR 1.39 (0.83-1.16) H 10/28/18 04:55 ECHO - persistent vegetation d/w CT surgery and ID regarding no discharge today - Physical Exam Constitutional: no apparent distress, appears nourished, not in pain Cardiovascular: regular rate and rhythym, no murmur, rub, or gallop Respiratory: no respiratory distress, no rales or rhonchi, clear to auscultation Gastrointestinal: normoactive bowel sounds, soft, non-tender abdomen, no palpable masses Skin: no rashes or abrasions, no fluctuance, no induration Neurologic: AAOx3, sensation intact bilaterally Psychiatric: interacting appropriately, not anxious, not encephalopathic, thought process linear ICD10 Worksheet Patient Problems: Problems Problem Status Onset s/p sternal reconstruction Acute ~10/30/18 Sternal deformity Chronic Acute blood loss anemia Acute Status post tricuspid valve repair Acute ~10/30/18 Endocarditis of tricuspid valve Acute Ventral hernia Acute Narcotic abuse Acute Abscess Acute Anemia Acute Psychosis Acute Sepsis Acute Tachycardia Acute Pneumonia Acute IV drug user Acute
[2018-11-06] MEDS: QUEtiapine FUMARATE 50 MG TAB PO SCH (20:46)
[2018-11-06] MEDS: KETOROLAC 30 MG/1 ML SDV IVP PRN (20:47)
[2018-11-06] MEDS: ZOLPIDEM TARTRATE 5 MG TAB PO PRN (22:18)
[2018-11-07] MEDS: HYDROmorphONE/DILAUDID 2 MG TAB PO PRN ×4 (04:03→17:00)
[2018-11-07] MEDS: ceFAZolin 2 GM/DEXTROSE 100 ML IV SCH ×2 (07:09→13:15)
[2018-11-07] MEDS: morphINE SR 15 MG TAB PO PRN ×2 (07:09→15:58)
--- NOTE | 2018-11-07 08:41 | SOAPPROG ---
SOAP Progress Note Assessment/Plan: POD#8: Median sternotomy with removal of skin graft, bilateral flap mobilization , and chest wall reconstruction; extensive tricuspid valve debridement, complex tricuspid valve repair w autologous pericardial patch reconstruction of anteroseptal leaflets, pulmonic valve exploration (neg for veg) POD#1 I&D right wrist abscess MSSA TV endocarditis with lobulated vegetation, septic emboli, and persistent bacteremia s/p TV debridement/repair. ABX as per ID. Antithrombotic prophylaxis with ASA alone. Sternal deformity - s/p partial sternectomy and skin grafting for prior abscess and osteo. Chest wall remodeled and stabilized with stainless steel wire. Sternal precautions x 6 weeks. Acute on chronic anemia - Stable s/p 1u PRBC preop and 4u PRBC postop. No evidence active bleeding. Thrombocytosis- On ASA to 325mg daily. Groin hematoma- Stable. US negative for pseudoaneurysm. Will follow. Hx polysubstance abuse with IVDA - Pt found somnolent 11/01 and discovered to have had drugs injected into her PICC by a visitor. Pt transferred to ICU for isolation. Hospitalist following. Anxiety- Stable, on Clonopin and Paxil. Acute on chronic pain- Managed by Hospitalist service. On MS Contin and Dilaudid for breakthrough. DVT prophylaxis - SCDs/ambulation. Pt refuses SC heparin. Cough - d/t septic emboli and pulm edema. PRN mucinex. 12 + blood cultures - streptococcus klebsiella oxytoca. Rx per ID. Disposition Awaiting sensitivity and repeat BCx TTE done yesterday concerning for TV endocarditis. Zachariah aware. No plan for LUIS FERNANDO at this time. Subjective: Suspicious syringe with brownish tip residue found in patient's room. +night sweats Objective: Vital Signs Temp Pulse Resp BP Pulse Ox 37.2 C 102 H 14 122/77 H 91 L 11/07/18 08:00 11/07/18 08:00 11/07/18 08:00 11/07/18 08:00 11/07/18 08:00 Microbiology 11/05/18 09:30 Blood Panel (PCR) - Final Blood Streptococcus Klebsiella Oxytoca 11/05/18 16:00 Gram Stain - Final Wrist - Swab 10/30/18 17:28 Gram Stain - Final Heart - Tissue 11/02/18 09:15 Blood Panel (PCR) - Final Blood No Organism Detected By Pcr Laboratory Results 11/04/18 04:30 11/04/18 04:30 11/06/18 11/07/18 11/08/18 05:59 05:59 05:59 Intake Total 2044 2250 Output Total 655 Balance 1389 2250 PT 17.2 SEC (12.0-15.0) H 10/28/18 04:55 INR 1.39 (0.83-1.16) H 10/28/18 04:55 - Physical Exam General Appearance: WD/WN, alert, no apparent distress Neck: supple Respiratory: lungs clear, decreased breath sounds (right mid lung field and base and left base. ), other (no wheezing, rhonchi, rales.) Cardiac/Chest: tachycardia, other (regular rhythm. no murmurs, rubs, gallops. sternum stable. sternal wound c/d/i.) Abdomen: normal bowel sounds, non-tender, soft Skin: normal color, warm/dry Extremities: other (warm, no edema. ), right wrist dressing Neuro/Psych: alert, normal mood/affect, oriented x 3 ICD10 Worksheet Patient Problems: Problems Problem Status Onset Acute blood loss anemia Acute Endocarditis of tricuspid valve Acute IV drug user Acute Pneumonia Acute Sepsis Acute Status post tricuspid valve repair Acute ~10/30/18 Tachycardia Acute s/p sternal reconstruction Acute ~10/30/18 Sternal deformity Chronic Abscess Acute Anemia Acute Narcotic abuse Acute Psychosis Acute Ventral hernia Acute
[2018-11-07] MEDS: clonazePAM 1 MG TAB PO PRN (09:28)
[2018-11-07] MEDS: PARoxetine HCL 20 MG TAB PO SCH (09:28)
[2018-11-07] MEDS: guaiFENesin 200 MG/10 ML UDL PO PRN ×2 (09:28→13:16)
[2018-11-07] MEDS: ASPIRIN 325 MG TAB PO SCH (09:29)
[2018-11-07] MEDS: KETOROLAC 30 MG/1 ML SDV IVP PRN ×2 (09:29→15:58)
--- NOTE | 2018-11-07 11:57 | PCMIDPN ---
Assessment/Plan: # MSSA TV endocarditis with pulmonary emboli, OR 09/30 for tricuspid valve repair. Heart tissue cultures are positive for MSSA and streptococcus salivarius. Blood cx 11/02 shows clearance of MSSA. Possible new veg on ECHO --If we got to a point where we thought it was safe for her to transfer, they found name of ID doctor: Dr Guadalupe [facility] [phone] --repeat ECHO to follow up on TV abn --safe discharge includes: cleared blood cx, hemodynamically stable, establish stability of new veg. Discussed this w patient today --still could plan PIV and infusion center, await more info # PICC line infection w chryseobacterium, Stenotrophomonas, Klebsiella, streptococcus. Last positive blood cx 11/05 --repeat blood cx 11/08 # History of MRSA sternal osteomyelitis: Contact isolation. Chest wall skin graft debridement and chest wall reconstruction was performed Medications, Abx # 11 cefazolin 2gm IV q8h levofloxacin 750mg IV daily #2 Microbiology 10/30 blood cultures 2 sets: MSSA 10/30 heart tissue: 3+ GPC: MSSA and streptococcus salivarius 10/26 blood cultures 2 sets MSSA 11/02 blood cx 1/2 sets chryseobacterium, Stenotrophomonas from PICC 11/05 blood cx 1 set : Klebs, streptococcus Subjective: patient happy w how sternal wound healing no diarrhea intermittently denying that injected herself Objective: Vital Signs Temp Pulse Resp BP Pulse Ox 37.2 C 102 H 14 122/77 H 91 L 11/07/18 08:00 11/07/18 08:00 11/07/18 08:00 11/07/18 08:00 11/07/18 08:00 Microbiology 10/30/18 17:28 Gram Stain - Final Heart - Tissue 11/02/18 09:15 Blood Panel (PCR) - Final Blood No Organism Detected By Pcr 11/05/18 09:30 Blood Panel (PCR) - Final Blood Streptococcus Klebsiella Oxytoca 11/05/18 16:00 Gram Stain - Final Wrist - Swab Laboratory Results 11/04/18 04:30 11/04/18 04:30 11/06/18 11/07/18 11/08/18 05:59 05:59 05:59 Intake Total 2044 2250 Output Total 655 Balance 1389 2250 - Physical Exam General Appearance: alert, apparent distress EENT: No pale conjunctiva Respiratory: crackles (R base), No accessory muscle use Neck: supple Cardiac/Chest: tachycardia, systolic murmur Extremities: No pedal edema Skin: diaphoresis, signs of IVDA, other (dressing in place R wrist) Neuro/Psych: alert, normal mood/affect, oriented x 3 - Time Spent With Patient Time Spent with Patient: greater than 35 minutes Time Spent with Patient: Greater than 35 minutes spent on this patients care, greater than 50% of time spent counseling, educating, and coordinating care regarding the above mentioned plan. ICD10 Worksheet Patient Problems: Problems Problem Status Onset Acute blood loss anemia Acute Endocarditis of tricuspid valve Acute IV drug user Acute Pneumonia Acute Sepsis Acute Status post tricuspid valve repair Acute ~10/30/18 Tachycardia Acute s/p sternal reconstruction Acute ~10/30/18 Sternal deformity Chronic Abscess Acute Anemia Acute Narcotic abuse Acute Psychosis Acute Ventral hernia Acute
--- NOTE | 2018-11-07 16:43 | HOSPPROG ---
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 -6 weeks IV abx - suspect persistent positive BC due to inpatient IVDA -ECHO shows persistent vegetation - await CT surgery opinion * Chryseobacterium sepsis -due to injection of hospital water in PICC -PO levaquin per ID * Septic pulmonary emboli * IVDA -active use while inpatient -now with strict visitor precautions * Continuous narcotic dependency -agreement to keep narcotics at current dose - no escalation -wean narcs down as no plan to discharge home with narcotic prescription * MSSA sepsis - as above * Acute respiratory failure due to septic pulmonary emboli -weaned off O2 * Forearm abscess -s/p I&D * h/o partial sternectomy with previous MRSA abcess/osteo/skin graft -s/p sternal reconstruction with stainless steel wire -sternal precaution for 6 weeks * Groin hematoma -US negative for pseudoaneurysm Subjective: Wants to DC home AM because her cat has scheduled hernia surgery Objective: Vital Signs Temp Pulse Resp BP Pulse Ox 37.1 C 103 H 19 121/75 H 94 11/07/18 16:00 11/07/18 16:00 11/07/18 16:00 11/07/18 16:00 11/07/18 12:00 Microbiology 11/05/18 09:30 Blood Panel (PCR) - Final Blood Streptococcus Klebsiella Oxytoca 11/05/18 16:00 Gram Stain - Final Wrist - Swab 10/30/18 17:28 Gram Stain - Final Heart - Tissue Anaerobic Culture - Final Staphylococcus Aureus Streptococcus Salivarius 11/02/18 09:15 Blood Panel (PCR) - Final Blood No Organism Detected By Pcr 11/02/18 08:45 Blood Culture - Final Blood Laboratory Results 11/04/18 04:30 11/04/18 04:30 11/06/18 11/07/18 11/08/18 05:59 05:59 05:59 Intake Total 2044 2250 Output Total 655 Balance 1389 2250 PT 17.2 SEC (12.0-15.0) H 10/28/18 04:55 INR 1.39 (0.83-1.16) H 10/28/18 04:55 - Time Spent With Patient Time Spent with Patient: greater than 35 minutes (prolonged discussion with staff and Dr. Poole regarding patients addiction, hospital safety and conditions for discharge) Time Spent with Patient: Greater than 35 minutes spent on this patients care, greater than 50% of time spent counseling, educating, and coordinating care regarding the above mentioned plan. - Physical Exam Constitutional: no apparent distress, appears nourished, not in pain Cardiovascular: regular rate and rhythym, no murmur, rub, or gallop Respiratory: no respiratory distress, no rales or rhonchi, clear to auscultation Gastrointestinal: normoactive bowel sounds, soft, non-tender abdomen, no palpable masses Skin: no rashes or abrasions, no fluctuance, no induration Neurologic: AAOx3, sensation intact bilaterally Psychiatric: interacting appropriately, not anxious, not encephalopathic, thought process linear ICD10 Worksheet Patient Problems: Problems Problem Status Onset s/p sternal reconstruction Acute ~10/30/18 Sternal deformity Chronic Acute blood loss anemia Acute Status post tricuspid valve repair Acute ~10/30/18 Endocarditis of tricuspid valve Acute Ventral hernia Acute Narcotic abuse Acute Abscess Acute Anemia Acute Psychosis Acute Sepsis Acute Tachycardia Acute Pneumonia Acute IV drug user Acute
[2018-11-07] MEDS ORDERED: CANN-EASE 2 GM TUBE TP ONE (18:10)
[2018-11-07] MEDS ORDERED: CANN-EASE 2 GM TUBE TP PRN (18:22)
[2018-11-07 21:33] VITALS: BP 122/77
--- NOTE | 2018-11-07 21:34 | ASMTCMCOM ---
CM Note CM Note Notes: Patient in ICU due to IVDA. Ongoing positive bld cultures reflecting drug use. Strict visitor precautions and now sitter. Will need 6weeks of ABX. CM to follow. Date Signed: 11/07/2018 03:20 PM Electronically Signed By:Nisha Pereyra LCSW
--- NOTE | 2018-11-07 22:13 | HOSPPROG ---
Hospitalist Progress Note Subjective: x-cover note. Called to bedside after patient was found to have syringes in her room and patient requested to leave the hospital. Esperanza understands that if she leaves the hospital against medical advice she has a high risk of . Depsite this risk she wants to leave and followup with ID as an outpatient. I discussed the case with Dr Poole who will agree to see her in clinic tomorrow at 11am. The patient verbilizes understanding to these instructions and agrees to seek followup. Risks/benefits of treatment were discussed. Objective: Vital Signs Temp Pulse Resp BP Pulse Ox 37.3 C 108 H 19 122/77 H 94 11/07/18 20:00 11/07/18 20:00 11/07/18 16:00 11/07/18 20:00 11/07/18 12:00 Microbiology 11/05/18 09:30 Blood Panel (PCR) - Final Blood Streptococcus Klebsiella Oxytoca 11/05/18 16:00 Gram Stain - Final Wrist - Swab 10/30/18 17:28 Gram Stain - Final Heart - Tissue Anaerobic Culture - Final Staphylococcus Aureus Streptococcus Salivarius 11/02/18 09:15 Blood Panel (PCR) - Final Blood No Organism Detected By Pcr 11/02/18 08:45 Blood Culture - Final Blood Laboratory Results 11/04/18 04:30 11/04/18 04:30 11/06/18 11/07/18 11/08/18 05:59 05:59 05:59 Intake Total 2044 2250 Output Total 655 Balance 1389 2250 PT 17.2 SEC (12.0-15.0) H 10/28/18 04:55 INR 1.39 (0.83-1.16) H 10/28/18 04:55 ICD10 Worksheet Patient Problems: Problems Problem Status Onset s/p sternal reconstruction Acute ~10/30/18 Sternal deformity Chronic Acute blood loss anemia Acute Status post tricuspid valve repair Acute ~10/30/18 Endocarditis of tricuspid valve Acute Ventral hernia Acute Narcotic abuse Acute Abscess Acute Anemia Acute Psychosis Acute Sepsis Acute Tachycardia Acute Pneumonia Acute IV drug user Acute
[2018-11-07] MEDS ORDERED: FUROSEMIDE 40 MG/4 ML VIAL IVP ONE (22:20)
--- NOTE | 2018-11-08 11:36 | GDS ---
Please note the patient left last night against medical advice. After syringes were found in her room and she was confronted. She does, however, have arrangements to follow up with Dr. Tamie Poole today in clinic, but she did not receive a full medical clearance prior to discharge. DIAGNOSES: 1. 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 2. Persistent vegetation. 3. Chryseobacterium sepsis due to injection of hospital water into her peripherally inserted catheter. 4. Septic pulmonary emboli. 5. Active IV drug abuse. 6. Continuous narcotic dependency. 7. Methicillin-susceptible Staphylococcus aureus sepsis. 8. Acute respiratory failure due to septic pulmonary emboli. 9. Forearm abscess status post incision and drainage. 10. History of partial sternectomy with previous methicillin-resistant Staphylococcus aureus abscess, osteomyelitis, and skin grafting status post sternal reconstruction with stainless steel wire. HISTORY OF PRESENT ILLNESS: The patient is a 23-year-old, IV drug abuser who presented with tricuspid valve endocarditis. She went to surgery with Dr. Soni and had her valve debrided and repaired. She required sternal reconstruction due to history of previous partial sternectomy that was complicated with methicillin-resistant Staphylococcus aureus osteomyelitis and skin grafting. She continued to abuse IV drugs during her hospitalization. She was injecting into her PICC line, and the PICC line had to be removed. She was put in the ICU under visitor restrictions, and she still managed to sneak syringes, and on the night she left it was discovered she was hiding syringes and drugs in the potted plant in her room. It is clear she was still injecting herself with drugs throughout her hospitalization. She had persistently positive blood cultures, because she was having new infections that were acquired in the hospital. She grew Chryseobacterium and Stenotrophomonas from her PICC line. A couple days later she grew Klebsiella Strep and Neisseria group in her blood. Her echocardiogram was showing a new vegetation, probably due to this ongoing drug abuse. On the evening of November 07, she made the decision to sign out against medical advice. She did have decisional capacity to do so. Dr. Poole has agreed to see her in the office today to see if we can piece together a suboptimal plan for her that is better than nothing. /[id number]/MODL MTDD
== END 2018-11-07 22:28 | disposition left against medical advice (07) | DRG 853 ==
LOC: EEVIPCON 18:37 → F2W 19:52 → F2N 10-27 10:46 → F2W 11-01 18:12 → F2N 11-01 22:49
PROVIDERS: ADMIT Internal Medicine; ATTEND Thoracic Surgery (Cardiothoracic Vascular Surgery)
DX: A41.01 Sepsis due to Methicillin susceptible Staphylococcus aureus (principal); I33.0 Acute and subacute infective endocarditis; I26.90 Septic pulmonary embolism without acute cor pulmonale; J96.00 Acute respiratory failure, unspecified whether with hypoxia or hypercapnia; R78.81 Bacteremia; L02.419 Cutaneous abscess of limb, unspecified; F11.20 Opioid dependence, uncomplicated; I07.9 Rheumatic tricuspid valve disease, unspecified; D64.9 Anemia, unspecified; Z86.14 Personal history of Methicillin resistant Staphylococcus aureus infection; Z23 Encounter for immunization
CPT/HCPCS: 80307; 82435-PO; 82565-PO; 82947-PO; 83605-PO; 84132-PO; 84295-PO; 84520-PO; 85014-PO; 96365; 97116-GP; 97161-GP; 97166-GO; 97530-GO; 97530-GP; 97535-GO; C1751; G0009; G0472; G0480; J0153; J0282; J0690; J1170; J1265; J1335; J1644; J1815; J1885; J1940; J2001; J2060; J2150; J2250; J2260; J2270; J2370; J2405; J2543; J2704; J2720; J2930; J2997; J3370; J3475; J3480; P9016; P9041; Q9967

== ENCOUNTER 2019-04-18 21:58 | Emergency (ER) | payer OTHER ==
[2019-04-18] MEDS ORDERED: NS 1,000 ML IV ONE (22:14)
--- NOTE | 2019-04-18 22:18 | EDPHY ---
H & P Stated Complaint: chest pain, SOB- open heart surgery in dec for broken sternum Source: Patient Exam Limitations: No limitations - Personal History LMP (Females 10-55): Over 28 Days Ago - Medical/Surgical History Hx Asthma: Yes Hx Chronic Respiratory Disease: No Hx Diabetes: No Hx Cardiac Disease: No Hx Renal Disease: No Hx Cirrhosis: No Hx Alcoholism: No Hx HIV/AIDS: No Hx Splenectomy or Spleen Trauma: No Other PMH: Exercise induced asthma; ivda, chronic pain, opiate abuse. Surgical - Tonsillectomy. possible abd hernia from ?? 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 The patient has a history of tricuspid valve endocarditis in September of 2018 secondary to IV drug use. Her past medical history is significant for IV drug use, history of multiple abscesses involving the arms as well as her sternal area which required extensive debridement in February last year. The patient has been off of antibiotics for several months. She is typically followed by Dr. Poole and the [facility]. The patient contacted Dr. Poole today with these complaints and was referred to the emergency department for further evaluation. The patient denies any vomiting or diarrhea. The patient denies any history of fall or trauma. She denies asymmetric calf pain or swelling. Patient states that her chest pain and dyspnea somewhat positional. The patient is quite clear that she is not use injection drugs for 6 months. REVIEW OF SYSTEMS: A comprehensive 10 point review of systems is otherwise negative aside from elements mentioned in the history of present illness. (Juan F Wright) - Physical Exam Exam: General Appearance: Thin female, deconditioned, appears uncomfortable Eyes: Pupils equal and round no pallor or injection ENT, Mouth: Mucous membranes moist Respiratory: There are no retractions, lungs are clear to auscultation, sternotomy incision is clean dry and intact Cardiovascular: Tachycardic Gastrointestinal: Abdomen is soft and nontender, no masses, bowel sounds normal Neurological: A&O, normal motor function, normal sensory exam, normal cranial nerves Skin: Warm and dry, no rashes Musculoskeletal: Neck is supple nontender Extremities: Evidence of old abscesses noted on extremities, Psychiatric: Patient is oriented X 3, there is no agitation (Juan F Wright) Constitutional: Initial Vital Signs Temperature (C) 36.8 C 04/18/19 22:01 Heart Rate 102 H 04/18/19 22:01 Respiratory Rate 18 04/18/19 22:01 Blood Pressure 122/77 H 04/18/19 22:01 O2 Sat (%) 95 04/18/19 22:01 O2 Delivery Mode Nasal Cannula O2 (L/minute) 2 Allergies/Adverse Reactions: No Known Allergies Allergy (Verified 04/18/19 22:01) Home Medications: Medication Instructions Recorded Amphet Asp and D/Amphet [Adderall 20 mg PO DAILY PRN 10/26/18 20 mg (*)] QUEtiapine FUMARATE [Seroquel 50 50 mg PO HS 10/26/18 mg (*)] Sumatriptan Succinate [Imitrex] 100 mg PO DAILY PRN 10/26/18 Zolpidem Tartrate [Ambien 5MG (*)] 5 mg PO HS 10/26/18 clonazePAM [klonoPIN (*)] 1 mg PO BID PRN 10/26/18 oxyCODONE IR [Oxycodone Ir (*)] 10 mg PO HS 10/26/18 Medical Decision Making - Diagnostics EKG Interpretation: EKG: Complete interpretation has been separately recorded in the [facility] archive. Summary impression: Sinus rhythm, rate 99 no ischemic changes noted ( Juan F Wright) Imaging Results: Imaging Impressions Chest X-Ray 04/18/19 22:14 Impression: There are streaky opacities bilaterally which are located along the periphery. These are favored to represent scarring rather than Geronimo B lines associated with volume overload. Would recommend correlation. EXAM: CTA Chest with Intravenous Contrast CLINICAL HISTORY: Chest pain, open heart in october TECHNIQUE: Axial CTA images of the chest with intravenous contrast. MIP reconstructed images were created and reviewed. CONTRAST: With; ISOVUE 370 COMPARISON: CT\OT\SR - CHEST W IV CONTRAST CT - 10/29/2018 11:37 AM MST FINDINGS: PULMONARY ARTERIES There is no intraluminal filling defect suspicious for PE. AORTA No thoracic aortic aneurysm or dissection. LUNGS Within the right upper lobe image #41 is 3 mm pulmonary nodule. This may represent small foci of residual scarring from prior infectious process. There is residual parenchymal scarring posterior left upper lobe abutting the major fissure. Linear areas of parenchymal scarring are present anterior right upper lobe, right middle lobe, and lung bases. PLEURAL SPACES No pleural effusion. No pneumothorax. HEART AND MEDIASTINUM No cardiomegaly. No significant pericardial effusion. LYMPH NODES Enlarged right axillary lymph nodes are present. Largest lymph node measures 1.5 x 2.0 cm. BONES No focal osseous abnormality or acute fracture. CHEST WALL AND UPPER ABDOMEN Median sternotomy wires are present. IMPRESSION: There is no PE. Small areas of parenchymal scarring secondary to prior infectious process. Right axillary adenopathy. ELECTRONICALLY SIGNED BY: Kianna Median MD April 19, 2019 12:27:35 AM MDT (Ron Gamboa) ED Course/Re-evaluation: The patient was referred to the emergency department by infectious disease with complaints of chest pain, fever and dyspnea. Patient is noted to be afebrile in the emergency department. She is tachycardic. She primarily is endorsing symptoms of chest pain and dyspnea. Patient has pleuritic component to her pain, positional components to her pain and some respiratory symptoms of cough. Patient has no asymmetric calf pain or swelling. Patient had an IV established. Blood cultures, CBC, CRP sed rate have all been ordered. I do feel the patient will need to undergo CT angiography for complete evaluation of her chest discomfort. (Juan F Wright) Differential Diagnosis: Differential diagnosis considered includes endocarditis, mediastinal abscess, pericarditis, subcutaneous abscess, pneumonia, empyema (Juan F Wright) Other Provider: [address] Wright pending CT scan of the chest and laboratory evaluations. CT scan results noted. Blood test results noted. I have re-examined the patient. She is a very slight but almost in perceptible murmur. No erythema. No discharge. No chest wall tenderness. I have discussed with Dr. Tamie Poole , infectious Disease. We reviewed her CT scan results, physical exam findings and her laboratory results. Patient is improved after Toradol. Dr. Poole is comfortable discharging her home. Will follow on her culture results. Patient return for any concerns. I think this is appropriate. I have discussed with the patient she is in agreement. Will discharge with follow-up as an outpatient. (Ron Gamboa) - Data Points Laboratory Results: Laboratory Results 04/18/19 22:55 04/18/19 22:55 04/18/19 04/18/19 04/18/19 22:55 22:55 22:55 WBC 11.85 10^3/uL H 10^3/uL (3.80-9.50) RBC 4.94 10^6/uL 10^6/uL (4.18-5.33) Hgb 13.2 g/dL g/dL (12.6-16.3) Hct 40.7 % % (38.0-47.0) MCV 82.4 fL fL (81.5-99.8) MCH 26.7 pg L pg (27.9-34.1) MCHC 32.4 g/dL g/dL (32.4-36.7) RDW 16.6 % H % (11.5-15.2) Plt Count 360 10^3/uL 10^3/uL (150-400) MPV 9.4 fL fL (8.7-11.7) Neut % (Auto) 83.2 % H % (39.3-74.2) Lymph % (Auto) 14.0 % L % (15.0-45.0) [place] % (Auto) 2.1 % L % (4.5-13.0) Eos % (Auto) 0.3 % L % (0.6-7.6) Baso % (Auto) 0.2 % L % (0.3-1.7) Nucleat RBC Rel Count 0.0 % % (0.0-0.2) Absolute Neuts (auto) 9.87 10^3/uL H 10^3/uL (1.70-6.50) Absolute Lymphs (auto) 1.66 10^3/uL 10^3/uL (1.00-3.00) Absolute Monos (auto) 0.25 10^3/uL L 10^3/uL (0.30-0.80) Absolute Eos (auto) 0.03 10^3/uL 10^3/uL (0.03-0.40) Absolute Basos (auto) 0.02 10^3/uL 10^3/uL (0.02-0.10) Absolute Nucleated RBC 0.00 10^3/uL 10^3/uL (0-0.01) Immature Gran % 0.2 % % (0.0-1.1) Immature Gran # 0.02 10^3/uL 10^3/uL (0.00-0.10) VBG Lactic Acid Sodium 136 mEq/L mEq/L (135-145) Potassium 5.6 mEq/L H mEq/L (3.5-5.2) Chloride 99 mEq/L mEq/L (97-110) Carbon Dioxide 22 mEq/l mEq/l (22-31) Anion Gap 15 mEq/L H mEq/L (6-14) BUN 11 mg/dL mg/dL (7-23) Creatinine 0.5 mg/dL L mg/dL (0.6-1.0) Estimated GFR > 60 Glucose 98 mg/dL mg/dL (70-100) Calcium 9.6 mg/dL mg/dL (8.5-10.4) C-Reactive Protein 81.0 mg/L H mg/L (<10.0) NT-Pro-B Natriuret Pep 436 pg/mL H pg/mL (0-125) Procalcitonin 0.22 ng/mL H ng/mL (0.02-0.10) Beta HCG, Qual NEGATIVE Specimen Hemolysis 129 04/18/19 22:55 WBC RBC Hgb Hct MCV MCH MCHC RDW Plt Count MPV Neut % (Auto) Lymph % (Auto) [place] % (Auto) Eos % (Auto) Baso % (Auto) Nucleat RBC Rel Count Absolute Neuts (auto) Absolute Lymphs (auto) Absolute Monos (auto) Absolute Eos (auto) Absolute Basos (auto) Absolute Nucleated RBC Immature Gran % Immature Gran # VBG Lactic Acid 1.0 mmol/L mmol/L (0.7-2.1) Sodium Potassium Chloride Carbon Dioxide Anion Gap BUN Creatinine Estimated GFR Glucose Calcium C-Reactive Protein NT-Pro-B Natriuret Pep Procalcitonin Beta HCG, Qual Specimen Hemolysis Medications Given: Discontinued Medications Sodium Chloride (Ns) 1,000 mls @ 0 mls/hr IV ONCE ONE; Wide Open PRN Reason: Protocol Stop: 04/18/19 22:15 Last Admin: 04/18/19 23:06 Dose: 1,000 mls Ketorolac Tromethamine (Toradol) 30 mg IVP EDNOW ONE Stop: 04/18/19 22:37 Last Admin: 04/18/19 23:06 Dose: 30 mg Departure - Departure Disposition: Home, Routine, Self-Care Clinical Impression: Chest pain Condition: Good Instructions: Chest Pain (ED) Additional Instructions: Follow up with Dr. Poole in 2-3 days for further evaluation. Return to the emergency department for worsening pain, fever, uncontrolled nausea vomiting, or any other concerns. Referrals: Tamie Poole MD [Medical Doctor] - As per Instructions
--- NOTE | 2019-04-18 22:22 | CPEKG ---
Test Reason : OPEN Blood Pressure : / mmHG Vent. Rate : 099 BPM Atrial Rate : 099 BPM P-R Int : 138 ms QRS Dur : 088 ms QT Int : 358 ms P-R-T Axes : 036 125 033 degrees QTc Int : 460 ms Sinus rhythm Right axis deviation Confirmed by Juan F Wright ([id number]) on 04/18/2019 10:22:03 PM Referred By: Juan F Wright Confirmed By:Juan F Wright
[2019-04-18] MEDS ORDERED: KETOROLAC 30 MG/1 ML SDV IVP ONE (22:36)
[2019-04-18 23:07] LABS: PLATELET COUNT 360 10^3/uL (150-400)
[2019-04-18] MEDS ORDERED: IOPAMIDOL (ISOVUE 370) 100 ML BTL IV ONE (23:29)
[2019-04-19 00:28] VITALS: BP 122/79
== END 2019-04-19 00:52 | disposition home or self-care (01) ==
DX: R07.9 Chest pain, unspecified (principal); R91.1 Solitary pulmonary nodule; R59.9 Enlarged lymph nodes, unspecified; E86.9 Volume depletion, unspecified; Z95.4 Presence of other heart-valve replacement
CPT/HCPCS: 96374; J1885; Q9967

== ENCOUNTER 2019-04-20 20:26 | Inpatient (IN) | payer OTHER ==
[2019-04-20] MEDS ORDERED: VANCOMYCIN HCL/NORMAL SALINE 250 ML IV ONE (20:54)
--- NOTE | 2019-04-20 21:07 | EDPHY ---
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 The patient has a tricuspid valve debridement in October 2018. At that time, the patient had persistently positive blood cultures with a variety of organisms and eventually was discovered that she was injecting her port with hospital water. She was also continuing to use IV drugs while in the hospital. She left AMA. Patient has since that time been followed by Dr. Poole. 3 days ago she was seen in the emergency department at the referral Dr. Poole for subjective fever and chest pain. Blood cultures from that visit are positive for MRSA. Currently, she reports she has chest pain at rest that is worse with movement and possible fever. She denies taking any anticoagulants. She reports that she is no longer using IV drugs. No chills, shortness of breath, palpitations, vomiting, diarrhea, urinary complaints, headache, lightheadedness. REVIEW OF SYSTEMS: A comprehensive 10 system review of systems is otherwise negative aside from elements mentioned in the history of present illness and medical decision making PAST MEDICAL HISTORY: IV drug abuse, tricuspid valve endocarditis, persistent vegetations, sternal osteomyelitis, sternal reconstruction, MRSA, tricuspid valve debridement SOCIAL HISTORY: Lives in [place], student at , PCP: Dr. Chavez VITAL SIGNS: Reviewed by me GENERAL: Well-developed, well-nourished, resting comfortably in no respiratory distress. HEENT: Atraumatic. Eyes: No icterus, no injection. Mouth: moist mucous membranes. No erythema or lesions. Neck: supple with no adenopathy. LUNGS: Clear to auscultation bilaterally, no wheezes, rhonchi or rales. CARDIAC: T-shaped scar across her chest. Tachycardic, no murmur appreciated, no rubs, or gallops. ABDOMEN: Soft, nontender, nondistended, bowel sounds normal. BACK: No CVA tenderness. EXTREMITIES: No trauma. No edema. Range of motion is normal throughout. NEURO: Alert and oriented, grossly nonfocal. SKIN: Warm and dry, no rash. No splinter hemorrhages. Multiple scars from the prior skin abscesses as well as IV drug use. PSYCHIATRIC: Normal mentation, no agitation. ED Course: Study: X-ray of the chest Indication: Chest pain Results: X-ray of the chest was obtained. The results of the study are: negative for acute findings The study was read by the radiologist, Dr. Jiménez. I viewed the images myself on the PACS system. The patient presents for treatment of MRSA. She has a history of IV drug abuse, MRSA, sternal reconstruction, multiple abscesses, endocarditis, and tricuspid valve debridement and repair. She was seen here 3 days ago for chest pain and blood cultures came back positive for MRSA. She was directed here for treatment by infectious disease. She reports continued chest pain and fever. Plan for CBC, basic metabolic panel, troponin, tox screen, chest x-ray, and admission. 1 g of vancomycin was ordered. 22:30 - The patient will be admitted for further treatment of MRSA. Dr. Weeks will be the admitting physician. Chest x-ray is negative. MDM: Differential diagnoses for the patient's symptom complex was considered including but not limited to endocarditis, septic emboli, bacteremia, persistent IV drug abuse. - Data Points Imaging Results: Imaging Impressions Chest X-Ray 04/20/19 20:54 Impression: Stable chest. Imaging: I viewed and interpreted images myself Medications Given: Discontinued Medications Vancomycin/Sodium Chloride (Vancomycin 1 Gm (Premix)) 250 mls @ 250 mls/hr IV EDNOW ONE PRN Reason: Protocol Stop: 04/20/19 21:53 Last Admin: 04/20/19 22:25 Dose: 250 mls General Time Seen by Provider: 04/20/19 20:53 Initial Vital Signs: Initial Vital Signs Temperature (C) 36.7 C 04/20/19 20:31 Heart Rate 135 H 04/20/19 20:31 Respiratory Rate 20 04/20/19 20:31 Blood Pressure 130/91 H 04/20/19 20:31 O2 Sat (%) 92 04/20/19 20:31 O2 Delivery Mode Room Air Allergies/Adverse Reactions: No Known Allergies Allergy (Verified 04/20/19 20:33) Home Medications: Medication Instructions Recorded Amphet Asp and D/Amphet [Adderall 20 mg PO DAILY PRN 10/26/18 20 mg (*)] QUEtiapine FUMARATE [Seroquel 50 50 mg PO HS 10/26/18 mg (*)] Zolpidem Tartrate [Ambien 5MG (*)] 10 mg PO HS 10/26/18 clonazePAM [klonoPIN (*)] 2 mg PO HS 10/26/18 oxyCODONE IR [Oxycodone Ir (*)] 10 mg PO HS 10/26/18 Gabapentin [Neurontin 300 MG (*)] 600 mg PO HS 04/20/19 Departure - Departure Disposition: [facility] Acute Clinical Impression: MRSA (methicillin resistant staph aureus) culture positive, Status post tricuspid valve repair, Tachycardia Condition: Fair Report Scribed for: Julia Osborne Report Scribed by: Diana Garces Date of Report: 04/20/19 Time of Report: 23:00 Physician Review and Approval Statement: Portions of this note were transcribed by a medical staffing coordinator. I personally performed a history, physical exam, medical decision making, and confirmed accuracy of information the transcribed note.
[2019-04-20 22:04] LABS: PLATELET COUNT 341 10^3/uL (150-400)
[2019-04-20] MEDS ORDERED: ACETAMINOPHEN 325 MG TAB PO PRN (22:17)
[2019-04-20] MEDS ORDERED: ONDANSETRON DISINTEGRATING 4 MG TAB PO PRN (22:17)
[2019-04-20] MEDS ORDERED: ONDANSETRON 4 MG/2 ML VIAL IVP PRN (22:17)
[2019-04-20] MEDS ORDERED: oxyCODONE IR 5 MG TAB PO PRN (23:20)
--- NOTE | 2019-04-21 00:59 | PDGENHP ---
History and Physical - Chief Complaint Bacteremia - History of Present Illness 24 yo F w/ hx of IVDU, TV endocarditis s/p debridement and repair, and multiple other infections related to IVDU presents with MRSA bacteremia. The patient was seen in the ED on 04/18 for complaints of chest wall pain. She had a CTPE performed, which essentially showed resolving findings from prior infections. Today her blood cultures grew MRSA so she was contacted and advised to return to the ED for admission. During my evaluation she continues to complain of chest wall pain overlying a surgical scar in her L upper chest. She tells me this has been present for about 2 weeks. She thinks she may have had a fever 2 days ago but not documented. She is overall well appearing and has been afebrile here thus far. She was tachycardic on arrival but this has resolved without intervention. She is being admitted for IV antibiotics and further investigation as to the source of the bacteremia. Per Dr. Poole' last clinic note she has been off of antibiotics for the last 2 months. Prior to that she was treated with doxycycline for the month of December. Case discussed with ED physician Dr. Osborne; records reviewed and summarized above. History Information - Allergies/Home Medication List Allergies/Adverse Reactions: No Known Allergies Allergy (Verified 04/20/19 20:33) Home Medications: Amphet Asp and D/Amphet [Adderall 20 mg (*)] 20 mg PO DAILY PRN 10/26/18 [Last Taken 04/19/19] QUEtiapine FUMARATE [Seroquel 50 mg (*)] 50 mg PO HS 10/26/18 [Last Taken ] Zolpidem Tartrate [Ambien 5MG (*)] 10 mg PO HS 10/26/18 [Last Taken 04/19/19] clonazePAM [klonoPIN (*)] 2 mg PO HS 10/26/18 [Last Taken 04/19/19] oxyCODONE IR [Oxycodone Ir (*)] 10 mg PO HS 10/26/18 [Last Taken 04/19/19] Gabapentin [Neurontin 300 MG (*)] 600 mg PO HS 04/20/19 [Last Taken 04/19/19] I have personally reviewed and updated: family history, medical history - Past Medical History Additional medical history: MRSA chest wall abscess/sternal osteomyelitis, IVDU , opiate and benzodiazepine dependence, anxiety, left upper extremity abscess, anemia of chronic inflammation - Surgical History Additional surgical history: Ventral hernia repair, sternal wound I&D with surgical removal of portion of sternum and skin flap. TV debridement and repair - Family History Positive for: cancer - Social History Smoking Status: Never smoked Review of Systems Review of Systems: ROS: 10pt was reviewed & negative except for what was stated in HPI & below Physical Exam Physical Exam: Temp Pulse Resp BP Pulse Ox 36.8 C 99 18 120/67 93 04/20/19 22:19 04/21/19 00:17 04/21/19 00:17 04/21/19 00:17 04/21/19 00:17 Constitutional: no apparent distress, appears nourished Eyes: PERRL, EOMI Ears, Nose, Mouth, Throat: moist mucous membranes, no oral mucosal ulcers Cardiovascular: regular rate and rhythym, systolic murmur Respiratory: no respiratory distress, clear to auscultation Gastrointestinal: normoactive bowel sounds, soft, non-tender abdomen Skin: warm, No erythema Musculoskeletal: full muscle strength, other (TTP over L upper chest) Neurologic: AAOx3, CN II-XII Intact Psychiatric: interacting appropriately, not anxious Lab Data & Imaging Review 04/20/19 21:36 04/20/19 21:36 WBC 10.33 10^3/uL (3.80-9.50) H 04/20/19 21:36 RBC 4.24 10^6/uL (4.18-5.33) 04/20/19 21:36 Hgb 11.3 g/dL (12.6-16.3) L 04/20/19 21:36 Hct 34.6 % (38.0-47.0) L 04/20/19 21:36 MCV 81.6 fL (81.5-99.8) 04/20/19 21:36 MCH 26.7 pg (27.9-34.1) L 04/20/19 21:36 MCHC 32.7 g/dL (32.4-36.7) 04/20/19 21:36 RDW 16.2 % (11.5-15.2) H 04/20/19 21:36 Plt Count 341 10^3/uL (150-400) 04/20/19 21:36 MPV 9.6 fL (8.7-11.7) 04/20/19 21:36 Neut % (Auto) 83.2 % (39.3-74.2) H 04/20/19 21:36 Lymph % (Auto) 12.9 % (15.0-45.0) L 04/20/19 21:36 [place] % (Auto) 3.1 % (4.5-13.0) L 04/20/19 21:36 Eos % (Auto) 0.2 % (0.6-7.6) L 04/20/19 21:36 Baso % (Auto) 0.2 % (0.3-1.7) L 04/20/19 21:36 Nucleat RBC Rel Count 0.0 % (0.0-0.2) 04/20/19 21:36 Absolute Neuts (auto) 8.60 10^3/uL (1.70-6.50) H 04/20/19 21:36 Absolute Lymphs (auto) 1.33 10^3/uL (1.00-3.00) 04/20/19 21:36 Absolute Monos (auto) 0.32 10^3/uL (0.30-0.80) 04/20/19 21:36 Absolute Eos (auto) 0.02 10^3/uL (0.03-0.40) L 04/20/19 21:36 Absolute Basos (auto) 0.02 10^3/uL (0.02-0.10) 04/20/19 21:36 Absolute Nucleated RBC 0.00 10^3/uL (0-0.01) 04/20/19 21:36 Immature Gran % 0.4 % (0.0-1.1) 04/20/19 21:36 Immature Gran # 0.04 10^3/uL (0.00-0.10) 04/20/19 21:36 Sodium 134 mEq/L (135-145) L 04/20/19 21:36 Potassium 4.0 mEq/L (3.5-5.2) 04/20/19 21:36 Chloride 97 mEq/L (97-110) 04/20/19 21:36 Carbon Dioxide 25 mEq/l (22-31) 04/20/19 21:36 Anion Gap 12 mEq/L (6-14) 04/20/19 21:36 BUN 12 mg/dL (7-23) 04/20/19 21:36 Creatinine 0.6 mg/dL (0.6-1.0) 04/20/19 21:36 Estimated GFR > 60 04/20/19 21:36 Glucose 101 mg/dL (70-100) H 04/20/19 21:36 Calcium 9.4 mg/dL (8.5-10.4) 04/20/19 21:36 POC Troponin I 0.00 ng/mL (0.00-0.08) 04/20/19 21:56 Beta HCG, Qual NEGATIVE 04/20/19 21:36 Imaging Review: Imaging Impressions Chest X-Ray 04/20/19 20:54 Impression: Stable chest. Assessment & Plan Assessment: 24 yo F w/ hx of IVDU, TV endocarditis s/p debridement and repair, and multiple other infections related to IVDU presents with MRSA bacteremia. Plan: 1. MRSA bacteremia - Unclear source; CT chest performed 04/18 did not reveal clear etiology. She does have a history of MRSA sternal abscess and now has tenderness over a similar area, although not exactly over the sternum. She is not toxic appearing at this time. - Vancomycin IV - Repeat blood cultures drawn - Will obtain TTE - ID consultation placed 2. Hx IVDU - Complicated by numerous infections including TV endocarditis requiring debridement and repair in October of 2018. During her last admission she continued to use IV drugs while in the hospital, leading to several other instances of bacteremia. For this reason the patient is not allowed to have visitors in the hospital. She denies IV drug use since 2018. - Infectious management as above 3. Depression, anxiety - Continue home gabapentin, clonazepam, quetiapine. 4. Chronic pain - Will continue home pain medications. Diet - Regular Code - Full Ppx - SCDs Dispo - Admit under inpatient status
[2019-04-21] MEDS: KETOROLAC 15 MG/1 ML SDV IVP PRN ×2 (01:35→10:04)
[2019-04-21] MEDS: ZOLPIDEM TARTRATE 5 MG TAB PO PRN ×2 (01:35→22:02)
[2019-04-21] MEDS: GABAPENTIN 300 MG CAP PO PRN ×2 (01:36→22:02)
[2019-04-21] MEDS: clonazePAM 1 MG TAB PO PRN ×2 (01:36→22:02)
[2019-04-21] MEDS: QUEtiapine FUMARATE 50 MG TAB PO PRN ×2 (01:36→22:03)
[2019-04-21] MEDS: VANCOMYCIN HCL/NORMAL SALINE 250 ML IV SCH ×2 (06:28→15:50)
--- NOTE | 2019-04-21 07:20 | PDMN ---
Medical Necessity Medical necessity: [facility] [place] M160 sepsis and other febrile illness without focal infections A-3 days : bacteremia- MRSA bacteremia noted pt is 24yo F with PMHx IVDU, TV endocarditis, s/p debridement and repair, with chest wall pain, X 2 weeks, anticipate > 2 MN ongoing med nec care- in this high risk pt.
--- NOTE | 2019-04-21 10:42 | ECHO ---
[email or web address] [address] [address] Main: [phone] Echocardiography Examination Transthoracic Name: DARRON POPE MR#: [id number] Study Date: 04/21/2019 Study Time: 08:57 AM Date of : 1995 Age: 24 year(s) Height: 170.2 cm (67 in.) Weight: 49.9 kg (110 lb.) BSA: 1.57 m2 Gender: Female Examination: Echo Contrast: Image Quality: Adequate Rhythm: Heart Rate: BP: 100 mmHg/51 mmHg Indication: r/o endocarditis Procedure Staff Referring Physician: Clock Repair Technician: Kianna Barnes VIELKA Reading Physician: Leonel Ramirez MD Requesting Provider: Ordering Physician: Jerardo Weeks Indication: r/o endocarditis Measurements Chambers AV/MV Label Value Normal Value Label Value Normal Value LVOTd 2 cm (1.8cm - 2cm) AV PGmax 5 mmHg LVOT VTI 15.5 cm (18cm - 22cm) AV PGmean 3 mmHg LVDd, 2D 5 cm (3.9cm - 5.3cm) AV Vmax 1.1 m/s LVDs, 2D 3.7 cm (2.1cm - 4cm) WINSTON (VTI) 3 cm2 IVSd, 2D 0.9 cm (0.6cm - 1.1cm) MV E Vmax 0.53 m/s LVPWd, 2D 0.9 cm MV A Vmax 0.45 m/s LVEF, 2D 51 % (54% - 74%) MV E/A 1.18 LVOT PGmean 3 mmHg MV E/E' lateral 4.3 LVOT Vmean 0.76 m/s MV E/E' septal 6 (0.6 - 2.6) RVDd, 2D 2.3 cm (1.9cm - 3.8cm) MV DT 183 ms LADs, 2D 3.1 cm (2.7cm - 3.8cm) MV E' septal 0.09 m/s Additional Vessels MV PHT 0.05 s Label Value Normal Value MVA PHT 4.4 cm2 AoAsc 2.7 cm MV E' lateral 0.12 m/s AoRoot, 2D 2.6 cm (1.4cm - 2.6cm) MV E/E' mean 5.05 MV PHT 50 ms MV E' mean 0.1 m/s TV/PV Label Value Normal Value Patient: DARRON POPE Study Date: 04/21/2019 Page 1 of 3 08:57 AM RA Pressure 5 mmHg RVSP 37 mmHg TR Pmax 32 mmHg TR Vmax 2.85 m/s PV PGmax 3 mmHg PV Vmax, Caliper 0.9 m/s (0.6m/s - 0.9m/s) Conclusions Incomplete exam because of patient agitation. Normal LV function, measured ejection fraction 51% . Mild mitral regurgitation Mild to moderate tricuspid regurgitation, no obvious vegetation seen, cannot rule out endocarditis, patient agitated and did not let oil processing technician finish study. Would recommend repeat study when patient is more cooperative. Findings Patient agitated during exam - refused to finish. Left Ventricle: Left ventricle is normal in size. Normal global systolic left ventricular function. The ejection fraction, measured by 2D, is 51 %. Left ventricle wall thickness is normal. There are no regional wall motion abnormalities. No LV hypertrophy. Left Ventricular Measurements LVEF, 2D is 51 %. Right Ventricle: Mildly dilated right ventricle. Right ventricular systolic function is normal. Left Atrium: The left atrium is normal in size. Right Atrium: The right atrium is normal in size. Mitral Valve: Mitral valve appears structurally normal. Mild mitral regurgitation. No mitral valve stenosis. Aortic Valve: Aortic leaflets are structurally normal. No significant aortic valve regurgitation. There is no aortic stenosis. Tricuspid Valve: Tricuspid valve repair. Cannot rule out endocarditis. Patient unable to tolerate extensive imaging. LUIS FERNANDO needed if concern for endocarditis. Mild to moderate tricuspid regurgitation. Right Ventricular systolic pressure is measured at 37 mmHg. Pulmonary artery pressure slightly increased. Pulmonic Valve: Pulmonic leaflets are structurally normal. Aorta: The aortic root size in 2D measures 2.6 cm. The ascending aorta measures 2.7 cm. Aorta Measurements AoRoot, 2D is 2.6 cm. Pericardium: No pericardial effusion. Exam Details Procedure Ordered: Echo Procedure Status: Routine study Image Quality: Adequate Facility Location: Cardiac Echo 1 (No Signature Object) Patient: DARRON POPE Study Date: 04/21/2019 Page 2 of 3 08:57 AM Patient: DARRON POPE Study Date: 04/21/2019 Page 3 of 3 08:57 AM [id number]
--- NOTE | 2019-04-21 11:52 | PCMIDPN ---
Assessment/Plan: # MRSA bacteremia associated with left upper chest pain, 15 lb weight loss over the last year, malaise and intermittent sweats. Expected associated leukocytosis. Unclear etiology patient with known history of IVDU but denies ongoing use. Patient with extensive infectious disease history, see dictation. --I allowed patient have 1 visitor, leaving all possessions at door, this evening this was discussed with nursing --continue high-dose vancomycin --repeat blood cx late tomorrow or early Tuesday Objective: Vital Signs Temp Pulse Resp BP Pulse Ox 37.3 C 104 H 14 115/64 93 04/21/19 10:50 04/21/19 10:50 04/21/19 10:50 04/21/19 10:50 04/21/19 10:50 Laboratory Results 04/20/19 21:36 04/20/19 21:36 04/20/19 04/21/19 04/22/19 05:59 05:59 05:59 Intake Total 660 Output Total 100 300 Balance 560 -300 ICD10 Worksheet Patient Problems: Problems Problem Status Onset MRSA (methicillin resistant staph aureus) culture positive Acute Status post tricuspid valve repair Acute ~10/30/18 Tachycardia Acute Abscess Acute Acute blood loss anemia Acute Anemia Acute Endocarditis of tricuspid valve Acute IV drug user Acute Narcotic abuse Acute Pneumonia Acute Psychosis Acute Sepsis Acute Ventral hernia Acute s/p sternal reconstruction Acute ~10/30/18 Sternal deformity Chronic
[2019-04-21] MEDS: oxyCODONE IR 5 MG TAB PO PRN ×2 (12:42→22:02)
--- NOTE | 2019-04-21 12:51 | HOSPPROG ---
Hospitalist Progress Note Assessment/Plan: 24 yo F w/ hx of IVDU, TV endocarditis s/p debridement and repair, and multiple other infections related to IVDU presents with MRSA bacteremia. Plan: 1. MRSA bacteremia - Unclear source; CT chest performed 04/18 did not reveal clear etiology. She does have a history of MRSA sternal abscess and now has tenderness over a similar area, although not exactly over the sternum. She is not toxic appearing at this time. - Vancomycin IV - Repeat blood cultures drawn, positive for MRSA on 04/18 - TTE performed earlier today but was not an optimal study as pt would not let aerial survey technician finish - ID consulted this AM, will f/u recs concerning further imaging, procedures, etc 2. Hx IVDU - Complicated by numerous infections including TV endocarditis requiring debridement and repair in October of 2018. During her last admission she continued to use IV drugs while in the hospital, leading to several other instances of bacteremia. For this reason the patient is not allowed to have visitors in the hospital. She denies IV drug use since 2018. - Infectious management as above 3. Depression, anxiety - Continue home gabapentin, clonazepam, quetiapine. 4. Chronic pain - Will continue home pain medications. Diet - Regular Code - Full Ppx - SCDs Dispo - Pending clinical course Subjective: Pt reports some chest pain this AM Objective: Vital Signs Temp Pulse Resp BP Pulse Ox 37.3 C 104 H 14 115/64 93 04/21/19 10:50 04/21/19 10:50 04/21/19 10:50 04/21/19 10:50 04/21/19 10:50 Laboratory Results 04/20/19 21:36 04/20/19 21:36 04/20/19 04/21/19 04/22/19 05:59 05:59 05:59 Intake Total 660 Output Total 100 300 Balance 560 -300 - Physical Exam Constitutional: unkempt Eyes: PERRL Ears, Nose, Mouth, Throat: moist mucous membranes Cardiovascular: regular rate and rhythym, No edema Respiratory: no respiratory distress Gastrointestinal: soft, non-tender abdomen Skin: normal color, other (sternal wound without significnat erythema ) Musculoskeletal: full muscle strength Neurologic: AAOx3 Psychiatric: anxious ICD10 Worksheet Patient Problems: Problems Problem Status Onset MRSA (methicillin resistant staph aureus) culture positive Acute Status post tricuspid valve repair Acute ~10/30/18 Tachycardia Acute Abscess Acute Acute blood loss anemia Acute Anemia Acute Endocarditis of tricuspid valve Acute IV drug user Acute Narcotic abuse Acute Pneumonia Acute Psychosis Acute Sepsis Acute Ventral hernia Acute s/p sternal reconstruction Acute ~10/30/18 Sternal deformity Chronic
[2019-04-21] MEDS ORDERED: NS 1,000 ML IV ONE (13:11)
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
--- NOTE | 2019-04-21 15:57 | ASMTCASEMG ---
Living Arrangements What is your living Answers: Alone arrangement? Who do you live with? Type Of Residence What kind of residence do Answers: Apartment you live in? Discharge Plan Comments Coordination Status Comments Notes: Pt was admitted through the ED yesterday after testing positive for MRSA 3 days prior from another ED visit. Pt has a history of IV drug abuse and has had tricuspid valve replacement. Following that surgery in October 2018, she used IV drugs while hospitalized and left AMA. She is currently admitted for treatment of the MRSA. She reports she is no longer using IV drugs. Pt lives alone in an apartment in [place] and is a student at [employer]. Her parents live in [place]. She is normally independent in her ADLs. CM will be available if needs arise. CM D/C plan: Likely independent to home Date Signed: 04/21/2019 03:56 PM Electronically Signed By:Radha Roe
--- NOTE | 2019-04-21 16:00 | ASMTLACE ---
[place] Acuity / Level of Answers: Yes Care: Did the patient have an inpatient admission? # of Emergency department Answers: 1-2 visits in the last 6 months Social determinants Answers: History of substance abuse (ETOH, street drugs, prescription drugs, etc.) Mental health diagnosis (anxiety, depression, pers onality disorders, etc.) Score: 10 Date Signed: 04/21/2019 03:59 PM Electronically Signed By:Radha Roe
--- NOTE | 2019-04-21 17:40 | PCMIDPN ---
Assessment/Plan: # MRSA bacteremia, query endocarditis. H/o TV repair for MSSA endocarditis 2017, no prosthetic valve present --called loss of IV access x2 --Hold vancomycin and attempt IV access tomorrow, strongly want to avoid PICC line placement due to h/o manipulation --start linezolid PO, although plans were to clear bacteremia first and then change to linezolid + Rif. Would hold Rifampin until blood cx cleared. Although linezolid is bacteriostatic it has more favorable tissue penetration than vancomycin. --small risk of interaction with Seroquel, will monitor --NPO after midnight, but will need to get IV access before LUIS FERNANDO Objective: Vital Signs Temp Pulse Resp BP Pulse Ox 37.0 C 96 16 114/72 91 L 04/21/19 15:57 04/21/19 15:57 04/21/19 15:57 04/21/19 15:57 04/21/19 15:57 Laboratory Results 04/20/19 21:36 04/20/19 21:36 04/20/19 04/21/19 04/22/19 05:59 05:59 05:59 Intake Total 660 1028 Output Total 100 300 Balance 560 728 ICD10 Worksheet Patient Problems: Problems Problem Status Onset MRSA (methicillin resistant staph aureus) culture positive Acute Status post tricuspid valve repair Acute ~10/30/18 Tachycardia Acute Abscess Acute Acute blood loss anemia Acute Anemia Acute Endocarditis of tricuspid valve Acute IV drug user Acute Narcotic abuse Acute Pneumonia Acute Psychosis Acute Sepsis Acute Ventral hernia Acute s/p sternal reconstruction Acute ~10/30/18 Sternal deformity Chronic
[2019-04-21] MEDS: LINEZOLID 600 MG TAB PO SCH (18:09)
[2019-04-21] MEDS: IBUPROFEN 600 MG TAB PO PRN (19:44)
[2019-04-22] MEDS: IBUPROFEN 600 MG TAB PO PRN (01:25)
[2019-04-22] MEDS: LINEZOLID 600 MG TAB PO SCH (05:30)
[2019-04-22] MEDS ORDERED: NS 1,000 ML IV ONE (07:00)
[2019-04-22 07:58] VITALS: BP 107/65
[2019-04-22] MEDS: oxyCODONE IR 5 MG TAB PO PRN (08:05)
[2019-04-22] MEDS ORDERED: PROPOFOL 200 MG/20 ML VIAL ONE (08:38)
[2019-04-22] MEDS ORDERED: LIDOCAINE 2% 5 ML SDV ONE (09:27)
--- NOTE | 2019-04-22 12:55 | HOSPPROG ---
Hospitalist Progress Note Assessment/Plan: Patient requested to leave AMA this morning. I discussed benefits and risks of leaving the hospital against medical advice which she expressed understanding. Objective: Vital Signs Temp Pulse Resp BP Pulse Ox 36.8 C 82 20 107/65 96 04/22/19 07:54 04/22/19 07:54 04/22/19 07:54 04/22/19 07:54 04/22/19 07:54 Laboratory Results 04/20/19 21:36 04/20/19 21:36 04/21/19 04/22/19 04/23/19 05:59 05:59 05:59 Intake Total 660 1428 Output Total 100 300 Balance 560 1128 ICD10 Worksheet Patient Problems: Problems Problem Status Onset Abscess Acute Acute blood loss anemia Acute Anemia Acute Endocarditis of tricuspid valve Acute IV drug user Acute MRSA (methicillin resistant staph aureus) culture positive Acute Narcotic abuse Acute Pneumonia Acute Psychosis Acute Sepsis Acute Status post tricuspid valve repair Acute ~10/30/18 Tachycardia Acute Ventral hernia Acute s/p sternal reconstruction Acute ~10/30/18 Sternal deformity Chronic
[2019-04-23 03:21] LABS: HEPATITIS C ANTIBODY TOTAL NEGATIVE (NEGATIVE)
--- NOTE | 2019-04-23 12:43 | PDDCSUM ---
Discharge Summary Discharge Summary: Date of Admission: 04/21/2019 Date of Discharge AMA: 04/22/2019 Consults: ID Procedures: TTE Followup: PCP, ID Hospital Course Problem List: 24 yo F w/ hx of IVDU, TV endocarditis s/p debridement and repair, and multiple other infections related to IVDU presents with MRSA bacteremia. Patient left AMA on 04/22, the risks of leaving against medical advice and benefits of continuing inpatient treatment were explained to patient which patient expressed understanding. Plan: 1. MRSA bacteremia - Unclear source; CT chest performed 04/18 did not reveal clear etiology. She does have a history of MRSA sternal abscess and now has tenderness over a similar area, although not exactly over the sternum. She is not toxic appearing at this time. - Was on Vancomycin IV, patient had very difficult IV access with nursing staff unable to place PIV, abx were switch to PO Linezolid per ID, PICC was avoided due to patient's hx of IVDU - Repeat blood cultures drawn on 04/20 positive for MRSA, positive for MRSA on - TTE performed during admission but was not an optimal study as pt would not let pharmacist technician finish - ID consulted, appreciate recommendations 2. Hx IVDU - Complicated by numerous infections including TV endocarditis requiring debridement and repair in October of 2018. During her last admission she continued to use IV drugs while in the hospital, leading to several other instances of bacteremia. She denies IV drug use since 2018. - Infectious management as above 3. Depression, anxiety - Continued home gabapentin, clonazepam, quetiapine. 4. Chronic pain - Continued home pain medications.
== END 2019-04-22 11:29 | disposition left against medical advice (07) | DRG 872 ==
LOC: F2W 04-21 00:53
PROVIDERS: ADMIT Student in an Organized Health Care Education/Training Program; ATTEND Internal Medicine
DX: R78.81 Bacteremia (principal); B95.62 Methicillin resistant Staphylococcus aureus infection as the cause of diseases classified elsewhere; F32.9 Major depressive disorder, single episode, unspecified; F41.9 Anxiety disorder, unspecified; G89.29 Other chronic pain
CPT/HCPCS: 80305; 84484-ER; G0472; J1885; J2704; J3370